=== PATIENT | male | born 1940 | race Caucasian/White ===

== ENCOUNTER 2016-07-01 03:18 | Inpatient (IN) | payer MEDICARE, OTHER ==
--- NOTE | 2016-07-01 03:33 | ER Document Report ---
ED Respiratory Problem - General Stated Complaint: DIFFICULTY BREATHING Time seen by provider: 03:30 Notes: Patient is a 75-year-old male that comes emergency department with chief complaint of shortness of breath, shortness of breath awoke him from his sleep tonight he states, he states he has had some cough with some sputum production but denies fever. EMS reports that with exertion patient becomes hypoxic in the 80s. Patient denies any chest pain, abdominal pain, nausea or vomiting. Past medical history of CAD with 4 stents, on Coumadin, also has a history of "bone cancer" and is on oral chemotherapy with Dr. Toro. Patient is a former smoker, denies COPD. Patient also has type II diabetes. Patient denies congestive heart failure. TRAVEL OUTSIDE OF THE [place] IN LAST 30 DAYS: No - Related Data Allergies/Adverse Reactions: Penicillins Allergy (Mild, Verified 07/01/16 06:40) Rash Past Medical History - General Information source: Patient - Social History Smoking Status: Former Smoker Frequency of alcohol use: None Drug Abuse: None Lives with: Alone Family History: Reviewed & Not Pertinent - Past Medical History Cardiac Medical History: Reports: Hx Congestive Heart Failure, Hx Coronary Artery Disease, Hx Heart Attack - x 4 (1993 x2, 1999 x 2), Hx Hypertension - ON MEDS Denies: Hx Hypercholesterolemia Pulmonary Medical History: Reports: Hx Pneumonia - Years ago Denies: Hx Asthma, Hx Bronchitis, Hx COPD Neurological Medical History: Denies: Hx Cerebrovascular Accident, Hx Seizures Endocrine Medical History: Reports: Hx Diabetes Mellitus Type 1, Hx Hyperthyroidism GI Medical History: Denies: Hx Hepatitis, Hx Hiatal Hernia, Hx Ulcer Musculoskeltal Medical History: Denies Hx Arthritis Infectious Medical History: Denies: Hx Hepatitis Past Surgical History: Reports: Hx Thyroid Surgery. Denies: Hx Open Heart Surgery - ANGIOPLASTY 1993,1999, Hx Pacemaker - Immunizations Hx Diphtheria, Pertussis, Tetanus Vaccination: Yes Hx Pneumococcal Vaccination: 06/04/11 Review of Systems - Review of Systems Constitutional: No symptoms reported EENT: No symptoms reported Cardiovascular: See HPI Respiratory: See HPI Gastrointestinal: No symptoms reported Genitourinary: No symptoms reported Male Genitourinary: No symptoms reported Musculoskeletal: No symptoms reported Skin: No symptoms reported Hematologic/Lymphatic: No symptoms reported Neurological/Psychological: No symptoms reported Physical Exam - Vital signs Vitals: Temp Resp Pulse Ox 98.5 F 22 H 97 07/01/16 03:20 07/01/16 03:20 07/01/16 03:20 Interpretation: Normal - General General appearance: Alert, Anxious In distress: Mild - HEENT Head: Normocephalic, Atraumatic Eyes: Normal Pupils: PERRL - Respiratory Respiratory status: Tachypnea. No: Labored Chest status: Nontender Breath sounds: Normal. No: Nonproductive cough, Rales, Rhonchi, Stridor, Wheezing Chest palpation: Normal - Cardiovascular Rhythm: Irregularly irregular, Tachycardia Heart sounds: Normal auscultation, S1 appreciated, S2 appreciated Murmur: No - Abdominal Inspection: Normal Distension: No distension Bowel sounds: Normal Tenderness: Nontender Organomegaly: No organomegaly - Back Back: Normal, Nontender - Extremities General upper extremity: Normal inspection, Nontender, Normal color, Normal ROM , Normal temperature General lower extremity: Normal inspection, Nontender, Normal color, Normal ROM , Normal temperature, Normal weight bearing. No: Javan's sign - Neurological Neuro grossly intact: Yes Cognition: Normal Orientation: AAOx4 Ensign Coma Scale Eye Opening: Spontaneous Ashley Coma Scale Verbal: Oriented Ashley Coma Scale Motor: Obeys Commands Ensign Coma Scale Total: 15 Speech: Normal Motor strength normal: LUE, RUE, LLE, RLE Sensory: Normal - Psychological Associated symptoms: Normal affect, Normal mood - Skin Skin Temperature: Warm Skin Moisture: Dry Skin Color: Normal Course - Re-evaluation Re-evalutation: EKG shows atrial fibrillation with tachycardia, no RVR, his PVCs. Patient's previous EKG also shows atrial fibrillation, patient stated he wasn't sure if he had atrial fibrillation on initial evaluation. Patient was initially given a bolus 500 mL of fluids. Review of imaging shows patient has history of prostate cancer with bony metastasis. Lungs clear, patient has some lower extremity edema which he states he always has but he denies history of CHF. Patient is not coughing, there is not an obvious etiology of his symptoms at this time, workup pending. Discussed with Dr. Perdomo per APC guidelines. Patient noted to be in A. fib with RVR and very short of breath, I evaluated him immediately, patient states that he had moved to urinate and immediately became short of breath, patient kept on oxygen, patient did resolve back to not having tachypnea and RVR dissipated. Patient had already received a DuoNeb by EMS, lungs questionably slightly decreased but not with any wheezing, rales, rhonchi. Patient again denies history of COPD. Venous blood gas CO2 is low, probably from hyperventilating, because of repeated episodes of respiratory distress, patient placed on BiPAP, giving Lasix and placing on nitroglycerin for suspected CHF exacerbation. Chest x-ray shows questionable CHF, BNP is somewhat elevated with no comparisons. Patient doing much better on BiPAP on reevaluation, CTA shows effusions but no other obvious etiology. Possibly a combination of COPD, CHF, pleural effusion. 07/01/16 07:40 Discussed with hospitalist, Dr. Ashley, patient will be admitted to the hospital. - Vital Signs Vital signs: Temp Pulse Resp BP Pulse Ox 98.5 F 23 H 157/104 H 98 07/01/16 03:20 07/01/16 07:01 07/01/16 07:01 07/01/16 07:01 - Laboratory Result Diagrams: 07/01/16 03:35 07/01/16 03:35 Laboratory results interpreted by me: 07/01/16 07/01/16 07/01/16 03:35 03:35 03:35 WBC 11.2 H Hgb 12.2 L Hct 37.8 L MCH 26.9 L RDW 15.6 H Seg Neutrophils % 79.0 H Absolute Neutrophils 8.8 H PT VBG pCO2 VBG HCO3 Carbon Dioxide 21 L Glucose 197 H NT-Pro-B Natriuret Pep 3640 H Total Protein 6.2 L Albumin 3.1 L 07/01/16 07/01/16 03:35 03:58 WBC Hgb Hct MCH RDW Seg Neutrophils % Absolute Neutrophils PT 21.7 H VBG pCO2 30.1 L VBG HCO3 16.2 L Carbon Dioxide Glucose NT-Pro-B Natriuret Pep Total Protein Albumin Discharge - Discharge Clinical Impression: Shortness of breath, Pleural effusion, Subtherapeutic anticoagulation, Hypoxia Condition: Stable Disposition: ADMITTED INPATIENT Admitting Provider: Hospitalist Unit Admitted: IMCU Referrals: CARLEY JOHNSON MD [Primary Care Provider] - Follow up as needed
[2016-07-01 03:46] LABS: ABSOLUTE BASOPHILS # (AUTO) 0.1 10^3/uL (0.0-0.2); ABSOLUTE EOSINOPHILS # (AUTO) 0.2 10^3/uL (0.0-0.6); ABSOLUTE LYMPHOCYTES (AUTO) 1.5 10^3/uL (0.5-4.7); ABSOLUTE MONOCYTES (AUTO) 0.5 10^3/uL (0.1-1.4); ABSOLUTE NEUT (AUTO) 8.8 10^3/uL (1.7-8.2); BASOPHILS % (AUTO) 0.9 % (0-2); EOSINOPHILS % (AUTO) 2.1 % (0-6); HEMATOCRIT 37.8 % (37.9-51.0); HEMOGLOBIN 12.2 g/dL (13.5-17.0); HGB HCT DIFFERENCE -1.2; LYMPHOCYTES % (AUTO) 13.7 % (13-45); MEAN CORPUSCULAR HEMOGLOBIN 26.9 pg (27.0-33.4); MEAN CORPUSCULAR HGB CONC 32.2 g/dL (32.0-36.0); MEAN CORPUSCULAR VOLUME 84 fl (80-97); MONOCYTES % (AUTO) 4.3 % (3-13); RED BLOOD COUNT 4.53 10^6/uL (4.35-5.55); RED CELL DISTRIBUTION WIDTH 15.6 % (11.5-14.0); WHITE BLOOD COUNT 11.2 10^3/uL (4.0-10.5)
[2016-07-01 03:50] LABS: VENOUS BLOOD BASE EXCESS -8.2 mmol/L; VENOUS BLOOD HCO3 16.2 mmol/L (20-32); VENOUS BLOOD PCO2 30.1 mmHg (35-63); VENOUS BLOOD PH 7.35 (7.30-7.42)
[2016-07-01] MEDS ORDERED: NORMAL SALINE 1000 ML 500 ML IV ONE (04:07)
[2016-07-01 04:09] LABS: ALANINE AMINOTRANSFERASE 28 U/L (21-72); ALBUMIN 3.1 g/dL (3.5-5.0); ALKALINE PHOSPHATASE 64 U/L (38-126); ANION GAP 14 (5-19); ASPARTATE AMINO TRANSFERASE 19 U/L (17-59); BILIRUBIN,TOTAL 0.4 mg/dL (0.2-1.3); BLOOD UREA NITROGEN 17 mg/dL (7-20); CARBON DIOXIDE 21 mmol/L (22-30); CHLORIDE 106 mmol/L (98-107); CREATINE KINASE 124 U/L (55-170); CREATININE RESULT 1.04 mg/dL (0.52-1.25); GLUCOSE 197 mg/dL (75-110); POTASSIUM 3.7 mmol/L (3.6-5.0); SODIUM 141.4 mmol/L (137-145); TOTAL PROTEIN 6.2 g/dL (6.3-8.2)
[2016-07-01 04:10] LABS: PROTHROMBIN TIME 21.7 SEC (11.4-15.4)
[2016-07-01 04:49] LABS: CREATINE KINASE MB 2.47 ng/mL (<4.55)
[2016-07-01 04:51] LABS: TROPONIN I 0.034 ng/mL
[2016-07-01] MEDS ORDERED: FUROSEMIDE INJ/PF 40 MG/4 ML SDV IV ONE (04:57)
[2016-07-01] MEDS ORDERED: NITROGLYCERIN 2% OINTMENT 1 GM PACKET TP ONE (05:46)
[2016-07-01] MEDS ORDERED: DEXTROSE 40% GEL 15 GM TUBE PO PRN ×2 (08:06)
[2016-07-01] MEDS ORDERED: GLUCAGON,HUMAN RECOMB 1 MG INJ IM PRN (08:06)
[2016-07-01] MEDS ORDERED: DEXTROSE 50%-WATER 25 GM/50 ML DISP.SYRIN IV PRN ×2 (08:06)
[2016-07-01] MEDS ORDERED: ACETAMINOPHEN 325 MG TABLET PO PRN (08:06)
[2016-07-01] MEDS ORDERED: MAGNESIUM HYDROXIDE SUSP 30 ML UDCUP PO PRN (08:11)
[2016-07-01] MEDS ORDERED: ONDANSETRON HCL INJ/PF 4 MG/2 ML SDV IV PRN (08:11)
[2016-07-01] MEDS ORDERED: INSULIN REG, HUMAN 100 UNIT/ML 3 ML VIAL (PYX) SUBCUT PRN (08:11)
[2016-07-01] MEDS ORDERED: HYDRALAZINE HCL INJ/PF 20 MG/1 ML SDV IV PRN (08:14)
[2016-07-01 09:11] LABS: CREATINE KINASE MB 2.86 ng/mL (<4.55); TROPONIN I 0.078 ng/mL
[2016-07-01] MEDS ORDERED: FUROSEMIDE INJ/PF 40 MG/4 ML SDV IV SCH (10:00)
[2016-07-01] MEDS ORDERED: WARFARIN SODIUM 5 MG TABLET PO SCH ×2 (10:45→22:00)
--- NOTE | 2016-07-01 11:19 | PDOC CONSULTATION ---
Consultation Consult Date: 07/01/16 Attending physician:: MANJIT AVINA Consult reason:: Patient well known to our oncology clinic with stage IV prostate cancer, here with dyspnea and exertion, shortness of breath, concern of heart failure History of Present Illness Admission Date/PCP: 07/01/16 08:06 CARLEY JOHNSON, Patient complains of: Distant exertion, shortness of breath, pleural effusions, heart failure, prostate cancer History of Present Illness: MAGALIE ABAD is a 75 year old male well known to our oncology clinic with stage IV prostate cancer, he is currently on the oral chemotherapeutic medication Xtandi, tolerating that well. He's been on that for about a month. Prior to that he was on the oral medication Zytiga, he's had progression of disease in terms of rising PSA. Therefore the change in medication was given. However imaging indicated overall stable bony metastasis. He does not have organ involvement thus far. He comes in with a one-week history of increasing lower extremity bilateral edema, and over the last 44 hours increasing shortness of breath, ultimately was brought here and extremitas. Upon presentation chest x-ray indicated overload, he had CT of the chest looking for causes, I was negative for PE but indicated bilateral pleural effusion. He was admitted for acute overload presumably secondary to heart failure. He has received Lasix and has had good output. He is currently on 2L nasal cannula, prior to that he was on higher flow oxygen. Past Medical History Cardiac Medical History: Reports: Congestive Heart Failure, Coronary Artery Disease, Myocardial Infarction - x 4 (1993 x2, 1999 x 2), Hypertension - ON MEDS Denies: Hyperlipidema Pulmonary Medical History: Reports: Pneumonia - Years ago Denies: Asthma, Bronchitis, Chronic Obstructive Pulmonary Disease (COPD) Neurological Medical History: Denies: Seizures Endocrine Medical History: Reports: Diabetes Mellitus Type 1, Hyperthyroidism Malignancy Medical History: Reports: Bone Cancer, Other - Prostate cancer with bone metastasis GI Medical History: Denies: Hepatitis, Hiatal Hernia Musculoskeltal Medical History: Denies: Arthritis Hematology: Denies: Anemia, Sickle Cell Disease Past Surgical History Past Surgical History: Denies: Pacemaker Social History Lives with: Alone Smoking Status: Former Smoker Hx Recreational Drug Use: No Hx Prescription Drug Abuse: No - Advance Directive Resuscitation Status: Full Code Family History Family History: Reviewed & Not Pertinent Parental Family History Reviewed: Yes Children Family History Reviewed: Yes Sibling(s) Family History Reviewed.: Yes Medication/Allergy Home Medications: Aspirin [Aspirin EC] 81 mg PO DAILY 07/01/16 Calcium Carbonate/Vitamin D3 [Calcium 500-Vit D3 200 Tablet] 1 each PO DAILY Enzalutamide [Xtandi] 160 mg PO DAILY 07/01/16 Ergocalciferol (Vitamin D2) [Vitamin D2] 50,000 units PO TU@1000 07/01/16 Fluticasone/Salmeterol [Advair 250-50 Diskus 14 Dose/Diskus] 1 puff IH DAILY Hydrochlorothiazide [Hydrodiuril 25 mg Tablet] 25 mg PO DAILY 07/01/16 Insulin Aspart [Novolog Flexpen] 20 units SQ TID 07/01/16 Insulin Glargine,Hum.rec.anlog [Lantus Solostar] 80 units SQ QHS 07/01/16 Levothyroxine Sodium [Synthroid 0.15 mg Tablet] 0.15 mg PO QAM 07/01/16 Metformin HCl [Metformin HCl ER] 1,000 mg PO BID 07/01/16 Metoprolol Tartrate [Lopressor 25 mg Tablet] 25 mg PO Q12 07/01/16 Nitroglycerin [Nitromist] 1 spray SL Q5MP PRN 07/01/16 Prednisone [Deltasone 5 mg Tablet] 5 mg PO BID 07/01/16 Rosuvastatin Calcium [Crestor 20 mg Tablet] 20 mg PO QHS 07/01/16 Tolterodine Tartrate [Detrol LA] 2 mg PO DAILY 07/01/16 Warfarin Sodium [Coumadin 4 mg Tablet] 4 mg PO .DAILYEXCEPT MOWE 07/01/16 Warfarin Sodium [Coumadin 5 mg Tablet] 5 mg PO .DAILYEXCEPT MOWE 07/01/16 Warfarin Sodium [Coumadin] 10 mg PO MOWE@1000 07/01/16 Allergies/Adverse Reactions: Penicillins Allergy (Mild, Verified 07/01/16 06:40) Rash Review of Systems Constitutional: PRESENT: weakness Cardiovascular: PRESENT: dyspnea on exertion, edema, orthropnea Gastrointestinal: ABSENT: abdominal pain, constipation, diarrhea, hematemesis, hematochezia, nausea, vomiting Integumentary: ABSENT: rash, wounds Neurological: ABSENT: abnormal gait, abnormal speech, confusion, dizziness, focal weakness, syncope Psychiatric: ABSENT: anxiety, depression, homidical ideation, suicidal ideation Hematologic/Lymphatic: ABSENT: easy bleeding, easy bruising Physical Exam Vital Signs: Temp Pulse Resp BP Pulse Ox 97.9 F 82 20 139/77 H 98 07/01/16 10:27 07/01/16 10:27 07/01/16 10:27 07/01/16 10:27 07/01/16 10:27 Intake & Output 06/30/16 07/01/16 07/02/16 06:59 06:59 06:59 Output Total 600 Balance -600 Weight 103.7 kg General appearance: PRESENT: mild distress Head exam: PRESENT: atraumatic Mouth exam: PRESENT: moist Neck exam: ABSENT: carotid bruit, JVD, lymphadenopathy, thyromegaly Respiratory exam: PRESENT: crackles Cardiovascular exam: PRESENT: RRR. ABSENT: diastolic murmur, rubs, systolic murmur GI/Abdominal exam: PRESENT: normal bowel sounds, soft. ABSENT: distended, guarding, mass, organolmegaly, rebound, tenderness Rectal exam: PRESENT: deferred Extremities exam: PRESENT: pedal edema, +2 edema Results Laboratory Results: 07/01/16 07/01/16 08:31 08:31 Creatine Kinase 125 CK-MB (CK-2) 2.86 Troponin I 0.078 Impressions: Chest X-Ray 07/01/16 03:30 IMPRESSION: Constellation of findings suggests CHF pattern. Chest/Abdomen CTA 07/01/16 04:58 IMPRESSION: 1. NO CENTRAL OR SEGMENTAL PULMONARY EMBOLI. 2. KNOWN OSSEOUS METASTASES STABLE IN AND DISTRIBUTION AND APPEARANCE. Status: Image reviewed by me Assessment & Plan - Diagnosis (1) Pleural effusion Is this a current diagnosis for this admission?: YesPlan: Most likely secondary to heart failure, unlikely secondary to prostate cancer, also should not be related to medication. This drug does not cause pleural effusions either. It shouldn't cause lower extremity edema. This should be unrelated. (2) Prostate cancer metastatic to bone Is this a current diagnosis for this admission?: YesPlan: Known history of prostate cancer with bone metastasis, recently stable metastasis but rising PSA, currently on Xtandi, have asked nursing to write order to continue home medication while hospitalized. - Time Time Spent: Greater than 70 Minutes Critical Time spent with patient: 35 or more minutes - Inpatient Certification Based on my medical assessment, after consideration of the patient's comorbidities, presenting symptoms, or acuity I expect that the services needed warrant INPATIENT care.: Yes I certify that my determination is in accordance with my understanding of Medicare's requirements for reasonable and necessary INPATIENT services [42 CFR 412.3e].: Yes Medical Necessity: Need For Continuous Telemetry Monitoring, Need for Nebulizer Therapy and Monitoring of Response, Other - Need for IV Lasix and close monitoring of intake and output.
[2016-07-01] MEDS: LISINOPRIL 10 MG TABLET PO SCH (12:58)
[2016-07-01] MEDS: FAMOTIDINE 20 MG TABLET PO SCH ×2 (12:58→22:52)
[2016-07-01] MEDS: POTASSIUM CHLORIDE 10 MEQ TABLET.SA PO SCH ×2 (12:59→22:51)
[2016-07-01] MEDS: METOPROLOL SUCCINATE 50 MG TAB.SR.24H PO SCH ×2 (12:59→22:52)
[2016-07-01] MEDS: NITROGLYCERIN 5 MG (0.2 MG/HR) PATCH.TD24 TD SCH (13:00)
--- NOTE | 2016-07-01 14:08 | PDOC H&P ---
History of Present Illness Admission Date/PCP: 07/01/16 08:06 CARLEY JOHNSON, Patient complains of: Sudden onset of shortness of breath History of Present Illness: Patient of Dr. Johnson Presents to the emergency department from home with sudden onset of shortness of breath occurred around 0100 this morning. He states he was in his usual state of health for the several days prior and went to bed feeling well but awakened with a sense of breathlessness. He notes his lower extremities and been swelling more over the course of the last week to 10 days. He complains of orthopnea for the last 1-2 nights he's been unable to lie flat due to increased breathlessness. He denies chest pain or palpitations even though he has a history of chronic atrial fibrillation. He denies fevers, chills, cough with phlegm, headache, dizziness, melena, hematochezia, dysuria, syncope or presyncope. Evaluation in the emergency department shows them to be quite hypertensive systolic pressures greater than 200 and diastolic pressures greater than 100, clinical and physical exam findings of fluid overload including pulmonary edema and pleural effusions with hypoxia on exertion but not at rest. We were asked to admit for further evaluation and management. The patient has a history of stage IV prostate cancer status post TURP and is followed by the oncology clinic currently on hormone therapy. Review of the old record indicates a history of ischemic cardiomyopathy from prior atherosclerotic coronary vascular disease and LA requiring stenting, unfortunately I do not see record of echocardiogram to document his last known ejection fraction. Past Medical History Cardiac Medical History: Reports: Congestive Heart Failure, Coronary Artery Disease, Myocardial Infarction - x 4 (1993 x2, 1999 x 2), Hypertension - ON MEDS Denies: Hyperlipidema Pulmonary Medical History: Reports: Pneumonia - Years ago Denies: Asthma, Bronchitis, Chronic Obstructive Pulmonary Disease (COPD) Neurological Medical History: Denies: Seizures Endocrine Medical History: Reports: Diabetes Mellitus Type 1, Hyperthyroidism Malignancy Medical History: Reports: Bone Cancer, Other - Prostate cancer with bone metastasis GI Medical History: Denies: Hepatitis, Hiatal Hernia Musculoskeltal Medical History: Denies: Arthritis Psychiatric Medical History: Reports: Depression Hematology: Denies: Anemia, Sickle Cell Disease Past Surgical History Past Surgical History: Denies: Pacemaker Social History Information Source: Patient Lives with: Alone Smoking Status: Former Smoker Cigarettes Packs Per Day: 3 Number of Years Smokin Frequency of Alcohol Use: None Hx Recreational Drug Use: No Hx Prescription Drug Abuse: No - Advance Directive Resuscitation Status: Full Code Family History Family History: CAD, DM Parental Family History Reviewed: Yes Children Family History Reviewed: Yes Sibling(s) Family History Reviewed.: Yes Medication/Allergy Home Medications: Aspirin [Aspirin EC] 81 mg PO DAILY 07/01/16 Calcium Carbonate/Vitamin D3 [Calcium 500-Vit D3 200 Tablet] 1 each PO DAILY Enzalutamide [Xtandi] 160 mg PO DAILY 07/01/16 Ergocalciferol (Vitamin D2) [Vitamin D2] 50,000 units PO TU@1000 07/01/16 Fluticasone/Salmeterol [Advair 250-50 Diskus 14 Dose/Diskus] 1 puff IH DAILY Hydrochlorothiazide [Hydrodiuril 25 mg Tablet] 25 mg PO DAILY 07/01/16 Insulin Aspart [Novolog Flexpen] 20 units SQ TID 07/01/16 Insulin Glargine,Hum.rec.anlog [Lantus Solostar] 80 units SQ QHS 07/01/16 Levothyroxine Sodium [Synthroid 0.15 mg Tablet] 0.15 mg PO QAM 07/01/16 Metformin HCl [Metformin HCl ER] 1,000 mg PO BID 07/01/16 Metoprolol Tartrate [Lopressor 25 mg Tablet] 25 mg PO Q12 07/01/16 Nitroglycerin [Nitromist] 1 spray SL Q5MP PRN 07/01/16 Prednisone [Deltasone 5 mg Tablet] 5 mg PO BID 07/01/16 Rosuvastatin Calcium [Crestor 20 mg Tablet] 20 mg PO QHS 07/01/16 Tolterodine Tartrate [Detrol LA] 2 mg PO DAILY 07/01/16 Warfarin Sodium [Coumadin 4 mg Tablet] 4 mg PO .DAILYEXCEPT MOWE 07/01/16 Warfarin Sodium [Coumadin 5 mg Tablet] 5 mg PO .DAILYEXCEPT MOWE 07/01/16 Warfarin Sodium [Coumadin] 10 mg PO MOWE@1000 07/01/16 Allergies/Adverse Reactions: Penicillins Allergy (Mild, Verified 07/01/16 06:40) Rash Review of Systems Constitutional: ABSENT: chills, fever(s), headache(s), weight gain, weight loss Eyes: ABSENT: visual disturbances Ears: ABSENT: hearing changes Cardiovascular: PRESENT: dyspnea on exertion, edema, orthropnea. ABSENT: chest pain, palpitations Respiratory: ABSENT: cough, hemoptysis Gastrointestinal: ABSENT: abdominal pain, constipation, diarrhea, hematemesis, hematochezia, nausea, vomiting Genitourinary: ABSENT: dysuria, hematuria Musculoskeletal: ABSENT: joint swelling Integumentary: ABSENT: rash, wounds Neurological: ABSENT: abnormal gait, abnormal speech, confusion, dizziness, focal weakness, syncope Psychiatric: ABSENT: anxiety, depression Endocrine: ABSENT: cold intolerance, heat intolerance, polydipsia, polyuria Hematologic/Lymphatic: ABSENT: easy bleeding, easy bruising Physical Exam Vital Signs: Temp Pulse Resp BP Pulse Ox 97.7 F 73 18 143/70 H 96 07/01/16 12:12 07/01/16 12:12 07/01/16 12:12 07/01/16 12:12 07/01/16 12:12 Intake & Output 06/30/16 07/01/16 07/02/16 06:59 06:59 06:59 Output Total 600 Balance -600 Weight 103.7 kg PHYSICAL EXAM GENERAL: NAD; well developed, well nourished; mild obese; alert and oriented to person, place, time, situation HEENT: normocephalic, atraumatic; EOMI, PERRLA, no conjunctival injection, no scleral icterus; oral mucosa moist,; neck supple, no LAD, normal ROM RESPIRATORY: no accessory muscle use, no increased WOB, good air entry bilaterally; no wheezes, or rhonchi; positive for rales and inspiratory crackles bilateral CARDIO: Possibly 2-3 cm JVD; RRR; no systolic murmur; no tachycardia VASCULAR: no carotid bruit; no abdominal bruit; no pallor; 2+ radial, DP pulse ; normal capillary refill GI: soft; nondistended; normal bowel sounds; no hepato spleno megaly; no rebound, rigidity, guarding : normal external genitalia; rectal deferred NEURO: normal patella reflexes; normal sensation; normal motor function; no gait abnls; no dysarthria; no nystagmus; tongue protrudes midline; normal finger to nose; MSK: 5/5 strength; normal ROM hips; ambulatory without assistance; no tenderness EXTREMITIES: no calf tender; no palpable cords in calf; no clubbing, cyanosis , 1+ pedal edema from the feet tracking up to thighs and dependent tissues of his back PSYCH: normal affect, normal mood SKIN: warm; moist; no petechiae; no telengectasias; no jaundice; no rash Results Laboratory Results: 07/01/16 07/01/16 08:31 08:31 Creatine Kinase 125 CK-MB (CK-2) 2.86 Troponin I 0.078 Impressions: Chest X-Ray 07/01/16 03:30 IMPRESSION: Constellation of findings suggests CHF pattern. Chest/Abdomen CTA 07/01/16 04:58 IMPRESSION: 1. NO CENTRAL OR SEGMENTAL PULMONARY EMBOLI. 2. KNOWN OSSEOUS METASTASES STABLE IN AND DISTRIBUTION AND APPEARANCE. Assessment & Plan - Diagnosis (1) Acute on chronic systolic heart failure Is this a current diagnosis for this admission?: YesPlan: Admit to monitored bed for continued diuresis. Trend his renal function and BNP. Continue beta jade, and topical nitroglycerin and ILEANA inhibitor. Strict I's and O's. Daily weights. CHF teaching. Check echocardiogram to document LV function. (2) Accelerated hypertension Is this a current diagnosis for this admission?: YesPlan: I suspect the hypertension accounts for flash pulmonary edema and the sudden onset of his symptoms overnight. Titrate his regimen to goal blood pressure. (3) Hypoxia Is this a current diagnosis for this admission?: YesPlan: Should improve with diuresis, does not wear supplemental O2 at home or CPAP. (4) Pleural effusion Is this a current diagnosis for this admission?: YesPlan: 2 small for invasive intervention like thoracentesis, will attempt to clear with diuresis. (5) Prostate cancer metastatic to bone Is this a current diagnosis for this admission?: YesPlan: Oncology consulted. Continue home meds (6) Subtherapeutic anticoagulation Is this a current diagnosis for this admission?: YesPlan: Coumadin per protocol. (7) Chronic atrial fibrillation Is this a current diagnosis for this admission?: YesPlan: Rate controlled. Continue beta jade. (8) Anticoagulated on Coumadin Is this a current diagnosis for this admission?: YesPlan: As above - Time Time Spent: Greater than 70 Minutes Medications reviewed and adjusted accordingly: Yes Anticipated discharge: Home Within: within 72 hours - Inpatient Certification Based on my medical assessment, after consideration of the patient's comorbidities, presenting symptoms, or acuity I expect that the services needed warrant INPATIENT care.: Yes I certify that my determination is in accordance with my understanding of Medicare's requirements for reasonable and necessary INPATIENT services [42 CFR 412.3e].: Yes Medical Necessity: Failure to Improve With Outpatient Therapy, Need For Continuous Telemetry Monitoring
--- NOTE | 2016-07-01 15:17 | EKG REPORT ---
SEVERITY:- ABNORMAL ECG - ATRIAL FIBRILLATION MULTIFORM VENTRICULAR PREMATURE COMPLEXES CONSIDER ANTERIOR INFARCT BORDERLINE T ABNORMALITIES, ANTERIOR LEADS PROLONGED QT INTERVAL : Confirmed by: Lamar Castro MD 01-Jul-2016 15:16:40
[2016-07-01 15:55] LABS: CREATINE KINASE MB 2.38 ng/mL (<4.55); TROPONIN I 0.058 ng/mL
[2016-07-01] MEDS: (Enzalutamide [Xtandi] 40 MG) PO SCH (17:10)
[2016-07-01] MEDS: FUROSEMIDE INJ/PF 40 MG/4 ML SDV IV SCH (17:10)
[2016-07-01] MEDS: PREDNISONE 5 MG TABLET PO SCH (17:10)
[2016-07-01 21:51] LABS: CREATINE KINASE MB 2.14 ng/mL (<4.55); TROPONIN I 0.057 ng/mL
[2016-07-01] MEDS ORDERED: (PENDING PHARMACY ID) (Rosuvastatin Calcium [Crestor 20 Mg Tablet] 20 MG) PO SCH (22:00)
[2016-07-01] MEDS: INSULIN GLARGINE,HUM.REC.ANLOG 300 UNIT/3 ML INSULN.PEN SUBCUT SCH (22:52)
[2016-07-01] MEDS: ATORVASTATIN CALCIUM 40 MG TABLET PO SCH (22:52)
[2016-07-01] MEDS: TOLTERODINE TARTRATE 1 MG TABLET PO SCH (22:52)
[2016-07-02 05:22] LABS: ANION GAP 11 (5-19); BLOOD UREA NITROGEN 15 mg/dL (7-20); CALCIUM 9.2 mg/dL (8.4-10.2); CARBON DIOXIDE 24 mmol/L (22-30); CHLORIDE 109 mmol/L (98-107); CREATININE RESULT 0.93 mg/dL (0.52-1.25); GLUCOSE 109 mg/dL (75-110); MAGNESIUM 1.8 mg/dL (1.6-2.3); POTASSIUM 4.3 mmol/L (3.6-5.0); SODIUM 143.5 mmol/L (137-145)
[2016-07-02 05:24] LABS: PROTHROMBIN TIME 20.3 SEC (11.4-15.4)
[2016-07-02] MEDS: FUROSEMIDE INJ/PF 40 MG/4 ML SDV IV SCH ×2 (05:42→17:12)
[2016-07-02] MEDS: LEVOTHYROXINE SODIUM 0.15 MG TABLET PO SCH (08:03)
--- NOTE | 2016-07-02 09:58 | PDOC PROGRESS REPORT ---
Subjective Progress Note for:: 07/02/16 Subjective:: No acute events overnight, patient is doing better today Physical Exam Vital Signs: Temp Pulse Resp BP Pulse Ox 98.1 F 69 20 112/77 98 07/02/16 08:18 07/02/16 08:18 07/02/16 08:18 07/02/16 08:18 07/02/16 08:18 Intake & Output 07/01/16 07/02/16 07/03/16 06:59 06:59 06:59 Intake Total 1430 Output Total 1800 Balance -370 Weight 103.7 kg General appearance: PRESENT: no acute distress, well-developed, well-nourished Head exam: PRESENT: atraumatic, normocephalic Eye exam: PRESENT: conjunctiva pink, EOMI, PERRLA. ABSENT: scleral icterus Ear exam: PRESENT: normal external ear exam Mouth exam: PRESENT: moist, tongue midline Neck exam: ABSENT: carotid bruit, JVD, lymphadenopathy, thyromegaly Respiratory exam: PRESENT: clear to auscultation carmelo. ABSENT: rales, rhonchi, wheezes Cardiovascular exam: PRESENT: RRR. ABSENT: diastolic murmur, rubs, systolic murmur Pulses: PRESENT: normal dorsalis pedis pul Vascular exam: PRESENT: normal capillary refill GI/Abdominal exam: PRESENT: normal bowel sounds, soft. ABSENT: distended, guarding, mass, organolmegaly, rebound, tenderness Rectal exam: PRESENT: deferred Extremities exam: PRESENT: full ROM. ABSENT: calf tenderness, clubbing, pedal edema Neurological exam: PRESENT: alert, awake, oriented to person, oriented to place , oriented to time, oriented to situation, CN II-XII grossly intact. ABSENT: motor sensory deficit Psychiatric exam: PRESENT: appropriate affect, normal mood. ABSENT: homicidal ideation, suicidal ideation Skin exam: PRESENT: dry, intact, warm. ABSENT: cyanosis, rash Results Laboratory Results: 07/02/16 04:14 07/02/16 04:14 Sodium 143.5 Potassium 4.3 Chloride 109 H Carbon Dioxide 24 Anion Gap 11 BUN 15 Creatinine 0.93 Est GFR ( Amer) > 60 Est GFR (Non-Af Amer) > 60 Glucose 109 Calcium 9.2 Magnesium 1.8 07/01/16 07/01/16 07/01/16 08:31 08:31 15:06 Creatine Kinase 125 121 CK-MB (CK-2) 2.86 Troponin I 0.078 NT-Pro-B Natriuret Pep 07/01/16 07/01/16 07/01/16 15:06 21:17 21:17 Creatine Kinase 127 CK-MB (CK-2) 2.38 2.14 Troponin I 0.058 0.057 NT-Pro-B Natriuret Pep 07/02/16 04:14 Creatine Kinase CK-MB (CK-2) Troponin I NT-Pro-B Natriuret Pep 3990 H Impressions: Chest X-Ray 07/01/16 03:30 IMPRESSION: Constellation of findings suggests CHF pattern. Chest/Abdomen CTA 07/01/16 04:58 IMPRESSION: 1. NO CENTRAL OR SEGMENTAL PULMONARY EMBOLI. 2. KNOWN OSSEOUS METASTASES STABLE IN AND DISTRIBUTION AND APPEARANCE. Assessment & Plan - Diagnosis (1) Pleural effusion Is this a current diagnosis for this admission?: YesPlan: Improved, related to heart failure, continue per hospitalist team (2) Prostate cancer metastatic to bone Is this a current diagnosis for this admission?: YesPlan: Continue on home medication, patient seems to be doing well. - Time Time Spent with patient: 15-24 minutes Critical Time spent with patient: 15-24 minutes - Inpatient Certification Based on my medical assessment, after consideration of the patient's comorbidities, presenting symptoms, or acuity I expect that the services needed warrant INPATIENT care.: Yes I certify that my determination is in accordance with my understanding of Medicare's requirements for reasonable and necessary INPATIENT services [42 CFR 412.3e].: Yes Medical Necessity: Failure to Improve With Outpatient Therapy, Risk of Complication if Not Cared For in Hospital
[2016-07-02] MEDS: (Enzalutamide [Xtandi] 40 MG) PO SCH (10:00)
[2016-07-02] MEDS ORDERED: (PENDING PHARMACY ID) (Tolterodine Tartrate [Detrol La] 2 MG) PO SCH (10:00)
[2016-07-02] MEDS: ASPIRIN 81 MG TABLET, ENT COATED PO SCH (10:05)
[2016-07-02] MEDS: METOPROLOL SUCCINATE 50 MG TAB.SR.24H PO SCH ×2 (10:05→21:27)
[2016-07-02] MEDS: POTASSIUM CHLORIDE 10 MEQ TABLET.SA PO SCH ×2 (10:05→21:27)
[2016-07-02] MEDS: PREDNISONE 5 MG TABLET PO SCH ×2 (10:06→17:12)
[2016-07-02] MEDS: LISINOPRIL 10 MG TABLET PO SCH (10:06)
[2016-07-02] MEDS: TOLTERODINE TARTRATE 1 MG TABLET PO SCH ×2 (10:06→21:26)
[2016-07-02] MEDS: FAMOTIDINE 20 MG TABLET PO SCH ×2 (10:06→21:27)
[2016-07-02] MEDS: NITROGLYCERIN 5 MG (0.2 MG/HR) PATCH.TD24 TD SCH (10:07)
[2016-07-02] MEDS: FLUTICASONE/SALMETEROL DISKUS 250-50 MCG/DOSE IH SCH (10:09)
--- NOTE | 2016-07-02 10:54 | PDOC PROGRESS REPORT ---
Subjective Progress Note for:: 07/02/16 Subjective:: Patient of Dr. Hurst Presents to the emergency department from home with sudden onset of shortness of breath occurred around 0100 this morning. He states he was in his usual state of health for the several days prior and went to bed feeling well but awakened with a sense of breathlessness. He notes his lower extremities and been swelling more over the course of the last week to 10 days. He complains of orthopnea for the last 1-2 nights he's been unable to lie flat due to increased breathlessness. He denies chest pain or palpitations even though he has a history of chronic atrial fibrillation. He denies fevers, chills, cough with phlegm, headache, dizziness, melena, hematochezia, dysuria, syncope or presyncope. Evaluation in the emergency department shows them to be quite hypertensive systolic pressures greater than 200 and diastolic pressures greater than 100, clinical and physical exam findings of fluid overload including pulmonary edema and pleural effusions with hypoxia on exertion but not at rest. We were asked to admit for further evaluation and management. The patient has a history of stage IV prostate cancer status post TURP and is followed by the oncology clinic currently on hormone therapy. Review of the old record indicates a history of ischemic cardiomyopathy from prior atherosclerotic coronary vascular disease and MO requiring stenting, unfortunately I do not see record of echocardiogram to document his last known ejection fraction. He was admitted and started on diuretics with good urine output and marked improvement in his symptoms. Today he denies chest pain palpitations states his orthopnea and lower extremities swelling have improved. ROS: per HPI plus a total of 10 systems reviewed, pertinent positives and negatives noted above, remaining systems negative. Physical Exam Vital Signs: Temp Pulse Resp BP Pulse Ox 98.1 F 69 20 112/77 98 07/02/16 08:18 07/02/16 08:18 07/02/16 08:18 07/02/16 08:18 07/02/16 08:18 Intake & Output 07/01/16 07/02/16 07/03/16 06:59 06:59 06:59 Intake Total 1430 Output Total 1800 Balance -370 Weight 103.7 kg GENERAL: NAD; well developed, well nourished; mild obese; alert and oriented to person, place, time, situation HEENT: normocephalic, atraumatic; EOMI, PERRLA, no conjunctival injection, no scleral icterus; oral mucosa moist,; neck supple, no LAD, normal ROM RESPIRATORY: no accessory muscle use, no increased WOB, good air entry bilaterally; no wheezes, or rhonchi; positive for rales and inspiratory crackles bilateral CARDIO: Improved JVD; irregularly irregular; no systolic murmur; no tachycardia VASCULAR: no carotid bruit; no abdominal bruit; no pallor; 2+ radial, DP pulse ; normal capillary refill GI: soft; nondistended; normal bowel sounds; no hepato spleno megaly; no rebound, rigidity, guarding : normal external genitalia; rectal deferred NEURO: normal patella reflexes; normal sensation; normal motor function; no gait abnls; no dysarthria; no nystagmus; MSK: 5/5 strength; normal ROM hips; ambulatory without assistance; no tenderness EXTREMITIES: no calf tender; no palpable cords in calf; no clubbing, cyanosis , 1+ pedal edema from the feet tracking up to thighs and dependent tissues of his back PSYCH: normal affect, normal mood SKIN: warm; moist; no petechiae; no telengectasias; no jaundice; no rash Results Laboratory Results: 07/02/16 04:14 07/02/16 04:14 Sodium 143.5 Potassium 4.3 Chloride 109 H Carbon Dioxide 24 Anion Gap 11 BUN 15 Creatinine 0.93 Est GFR ( Amer) > 60 Est GFR (Non-Af Amer) > 60 Glucose 109 Calcium 9.2 Magnesium 1.8 07/01/16 07/01/16 07/01/16 08:31 08:31 15:06 Creatine Kinase 125 121 CK-MB (CK-2) 2.86 Troponin I 0.078 NT-Pro-B Natriuret Pep 07/01/16 07/01/16 07/01/16 15:06 21:17 21:17 Creatine Kinase 127 CK-MB (CK-2) 2.38 2.14 Troponin I 0.058 0.057 NT-Pro-B Natriuret Pep 07/02/16 04:14 Creatine Kinase CK-MB (CK-2) Troponin I NT-Pro-B Natriuret Pep 3990 H Impressions: Chest X-Ray 07/01/16 03:30 IMPRESSION: Constellation of findings suggests CHF pattern. Chest/Abdomen CTA 07/01/16 04:58 IMPRESSION: 1. NO CENTRAL OR SEGMENTAL PULMONARY EMBOLI. 2. KNOWN OSSEOUS METASTASES STABLE IN AND DISTRIBUTION AND APPEARANCE. Assessment & Plan - Diagnosis (1) Acute on chronic systolic heart failure Is this a current diagnosis for this admission?: YesPlan: Admit to monitored bed for continued diuresis. Trend his renal function and BNP. Continue beta jade, and topical nitroglycerin and ILEANA inhibitor. Strict I's and O's. Daily weights. Fluid restriction to 1500 mL per day CHF teaching. Check echocardiogram to document LV function but not able to do so until one day. Overall improved, continue current regimen. (2) Accelerated hypertension Is this a current diagnosis for this admission?: YesPlan: I suspect the hypertension accounts for flash pulmonary edema and the sudden onset of his symptoms overnight. Markedly improved, Titrate his regimen to goal blood pressure. (3) Hypoxia Is this a current diagnosis for this admission?: YesPlan: improved with diuresis, does not wear supplemental O2 at home or CPAP. Continue attempts to wean and check room air sat in the morning. (4) Pleural effusion Is this a current diagnosis for this admission?: YesPlan: too small for invasive intervention like thoracentesis, will attempt to clear with diuresis. (5) Prostate cancer metastatic to bone Is this a current diagnosis for this admission?: YesPlan: Oncology consulted. Continue home meds (6) Subtherapeutic anticoagulation Is this a current diagnosis for this admission?: YesPlan: Continue Coumadin. The patient is very confused about the dose he should be taking making it difficult to choose. (7) Chronic atrial fibrillation Is this a current diagnosis for this admission?: YesPlan: Rate controlled. Continue beta jade. (8) Anticoagulated on Coumadin Is this a current diagnosis for this admission?: YesPlan: As above - Time Time Spent with patient: 25-34 minutes - Plan Summary Plan Summary: Continue current level of care anticipating possible discharge tomorrow. Dr. Hurst returns in the morning to resume care of this patient.
[2016-07-02 11:33] LABS: PROTHROMBIN TIME 20.2 SEC (11.4-15.4)
[2016-07-02] MEDS: ATORVASTATIN CALCIUM 40 MG TABLET PO SCH (21:26)
[2016-07-02] MEDS: INSULIN GLARGINE,HUM.REC.ANLOG 300 UNIT/3 ML INSULN.PEN SUBCUT SCH (21:27)
[2016-07-02] MEDS ORDERED: WARFARIN SODIUM 4 MG TABLET PO SCH (22:00)
[2016-07-03 05:14] LABS: ANION GAP 10 (5-19); BLOOD UREA NITROGEN 18 mg/dL (7-20); CARBON DIOXIDE 27 mmol/L (22-30); CHLORIDE 106 mmol/L (98-107); CREATININE RESULT 0.99 mg/dL (0.52-1.25); GLUCOSE 78 mg/dL (75-110); MAGNESIUM 1.8 mg/dL (1.6-2.3); POTASSIUM 4.2 mmol/L (3.6-5.0); SODIUM 142.7 mmol/L (137-145)
[2016-07-03] MEDS: FUROSEMIDE INJ/PF 40 MG/4 ML SDV IV SCH ×2 (06:06→17:13)
[2016-07-03] MEDS: LEVOTHYROXINE SODIUM 0.15 MG TABLET PO SCH (08:23)
--- NOTE | 2016-07-03 08:58 | PDOC PROGRESS REPORT ---
Subjective Progress Note for:: 07/03/16 Subjective:: The patient states to feel much better. He is up in a recliner this morning. His INR was a negative Physical Exam Vital Signs: Temp Pulse Resp BP Pulse Ox 98.1 F 67 20 115/55 L 93 07/03/16 07:54 07/03/16 07:54 07/03/16 07:54 07/03/16 07:54 07/03/16 07:54 Intake & Output 07/02/16 07/03/16 07/04/16 06:59 06:59 06:59 Intake Total 1430 1427 Output Total 1800 1400 Balance -370 27 Weight 103.7 kg 103.7 kg General appearance: PRESENT: no acute distress Head exam: PRESENT: atraumatic Eye exam: PRESENT: conjunctiva pink Neck exam: ABSENT: carotid bruit, JVD Respiratory exam: PRESENT: crackles Cardiovascular exam: PRESENT: irregular rhythm Pulses: PRESENT: +1 pedal pulses bilateral Vascular exam: PRESENT: normal capillary refill GI/Abdominal exam: PRESENT: normal bowel sounds, soft Extremities exam: PRESENT: full ROM, pedal edema Musculoskeletal exam: PRESENT: full ROM Neurological exam: PRESENT: alert, oriented to time Results Laboratory Results: 07/03/16 04:00 07/03/16 04:00 Sodium 142.7 Potassium 4.2 Chloride 106 Carbon Dioxide 27 Anion Gap 10 BUN 18 Creatinine 0.99 Est GFR ( Amer) > 60 Est GFR (Non-Af Amer) > 60 Glucose 78 Calcium 9.0 Phosphorus 4.0 Magnesium 1.8 07/01/16 07/01/16 07/01/16 08:31 08:31 15:06 Creatine Kinase 125 121 CK-MB (CK-2) 2.86 Troponin I 0.078 NT-Pro-B Natriuret Pep 07/01/16 07/01/16 07/01/16 15:06 21:17 21:17 Creatine Kinase 127 CK-MB (CK-2) 2.38 2.14 Troponin I 0.058 0.057 NT-Pro-B Natriuret Pep 07/02/16 04:14 Creatine Kinase CK-MB (CK-2) Troponin I NT-Pro-B Natriuret Pep 3990 H Impressions: Chest X-Ray 07/01/16 03:30 IMPRESSION: Constellation of findings suggests CHF pattern. Chest/Abdomen CTA 07/01/16 04:58 IMPRESSION: 1. NO CENTRAL OR SEGMENTAL PULMONARY EMBOLI. 2. KNOWN OSSEOUS METASTASES STABLE IN AND DISTRIBUTION AND APPEARANCE. Assessment & Plan - Diagnosis (1) Acute on chronic systolic heart failure Is this a current diagnosis for this admission?: YesPlan: Continue current treatment (2) Chronic atrial fibrillation Is this a current diagnosis for this admission?: YesPlan: Rate control will continue with current medication. (3) Anticoagulated on Coumadin Is this a current diagnosis for this admission?: YesPlan: Adjust dose of Coumadin (4) Hypoxia Is this a current diagnosis for this admission?: YesPlan: We will recheck the O2 sats and slowly wean off the oxygen. The hypoxemia might have been related to an acute onset of congestive heart failure (5) Accelerated hypertension Is this a current diagnosis for this admission?: YesPlan: Her blood pressure is much better controlled. The patient might have not been very compliant with his diet or medications. (6) Pleural effusion Is this a current diagnosis for this admission?: YesPlan: Most probably related to an acute congestive heart failure (7) Prostate cancer metastatic to bone Is this a current diagnosis for this admission?: YesPlan: Presently being followed and treated by the product support engineer oncologist
[2016-07-03] MEDS: FLUTICASONE/SALMETEROL DISKUS 250-50 MCG/DOSE IH SCH (09:28)
[2016-07-03] MEDS: NITROGLYCERIN 5 MG (0.2 MG/HR) PATCH.TD24 TD SCH (09:33)
[2016-07-03] MEDS: TOLTERODINE TARTRATE 1 MG TABLET PO SCH ×2 (09:33→21:38)
[2016-07-03] MEDS: ASPIRIN 81 MG TABLET, ENT COATED PO SCH (09:34)
[2016-07-03] MEDS: LISINOPRIL 10 MG TABLET PO SCH (09:34)
[2016-07-03] MEDS: POTASSIUM CHLORIDE 10 MEQ TABLET.SA PO SCH ×2 (09:34→21:38)
[2016-07-03] MEDS: METOPROLOL SUCCINATE 50 MG TAB.SR.24H PO SCH ×2 (09:34→21:39)
[2016-07-03] MEDS: FAMOTIDINE 20 MG TABLET PO SCH ×2 (09:34→21:39)
[2016-07-03] MEDS: PREDNISONE 5 MG TABLET PO SCH ×2 (09:34→17:14)
[2016-07-03] MEDS ORDERED: WARFARIN SODIUM 5 MG TABLET PO SCH ×2 (10:31→22:00)
[2016-07-03] MEDS: (Enzalutamide [Xtandi] 40 MG) PO SCH (10:36)
--- NOTE | 2016-07-03 18:23 | XCELERA REPORT ---
[address] [address] Transthoracic Echocardiogram Report Name: MAGALIE ABAD Age: 75 yrs Gender: Male : 1940 Patient Status: Inpatient Patient Location: [id number]\306\S\A Study Date: 07/03/2016 09:39 AM Height: 70 in Weight: 220 lb BSA: 2.2 m2 Procedure: A complete two-dimensional transthoracic echocardiogram was performed (2D, M-mode, spectral and color flow Doppler). The study was technically difficult with many images being suboptimal in quality. Reason For Study: heart failure Ordering Physician: MANJIT AVINA Performed By: Daisy Vargas Interpretation Summary The study was technically difficult with many images being suboptimal in quality. The Ejection Fraction estimate is 35-40% Left ventricular systolic function is moderately reduced. There is borderline concentric left ventricular hypertrophy. The left ventricle is mildly dilated. There is moderate global hypokinesis of the left ventricle. The right ventricle is mildly dilated. The right ventricular systolic function is borderline reduced. The right atrium is normal in size The left atrium is severely dilated. There is no mitral valve stenosis. There is a moderate amount of mitral regurgitation There is no aortic valve stenosis There is a trace amount of aortic regurgitation There is a trace or physiologic amount of tricuspid regurgitation Tricuspid regurgitation jet envelope not well defined to measure RV systolic pressure accurately. The aortic root is not well visualized but is probably normal size. The inferior vena cava appeared normal and decreased < 50% with respiration (RAP 10-15 mmHg) There is no pericardial effusion. MMode/2D Measurements \T\ Calculations RVDd: 3.7 cm LVIDd: 6.2 cm FS: 17.8 % Ao root diam: 3.2 cm IVSd: 0.86 cm LVIDs: 5.1 cm EDV(Teich): 192.2 ml LVPWd: 0.93 cm ESV(Teich): 122.5 ml Ao root area: 8.0 cm2 EF(Teich): 36.3 % LA dimension: 5.1 cm Doppler Measurements \T\ Calculations MV E max nemesio: MV P1/2t max nemesio: Ao V2 max: LV V1 max P.3 cm/sec 89.8 cm/sec 173.7 cm/sec 2.0 mmHg MV A max nemesio: MV P1/2t: 53.8 msec Ao max PG: LV V1 max: 29.1 cm/sec 12.1 mmHg 71.0 cm/sec MV E/A: 3.1 MVA(P1/2t): 4.1 cm2 MV dec slope: 489.3 cm/sec2 MV dec time: 0.21 sec PA V2 max: PI end-d nemesio: TR max nemesio: 73.1 cm/sec 101.6 cm/sec 237.8 cm/sec PA max PG: TR max P.1 mmHg 22.6 mmHg Left Ventricle The left ventricle is mildly dilated. There is borderline concentric left ventricular hypertrophy. Left ventricular systolic function is moderately reduced. The Ejection Fraction estimate is 35-40%. LV diastolic function could not be adequately assessed due to atrial fibrilation. There is moderate global hypokinesis of the left ventricle. Right Ventricle The right ventricle is mildly dilated. There is normal right ventricular wall thickness. The right ventricular systolic function is borderline reduced. Atria The right atrium is normal in size. The left atrium is severely dilated. Interarterial septum not well visualized and not well dopplered. Cannot comment on ASD/PFO presence. Mitral Valve There is mild mitral leaflet calcification. There is mild mitral annular calcification. There is no mitral valve stenosis. There is a moderate amount of mitral regurgitation. Aortic Valve The aortic valve is moderately calcified. There is no aortic valve stenosis. There is a trace amount of aortic regurgitation. Tricuspid Valve The tricuspid valve is not well visualized, but is grossly normal. There is no tricuspid stenosis. There is a trace or physiologic amount of tricuspid regurgitation. Tricuspid regurgitation jet envelope not well defined to measure RV systolic pressure accurately. Pulmonic Valve The pulmonic valve is not well visualized. Great Vessels The aortic root is not well visualized but is probably normal size. The inferior vena cava appeared normal and decreased < 50% with respiration (RAP 10-15 mmHg). Effusions There is no pericardial effusion. : MANJIT AVINA > Randell Ernandez
[2016-07-03] MEDS: ATORVASTATIN CALCIUM 40 MG TABLET PO SCH (21:38)
[2016-07-03] MEDS: INSULIN GLARGINE,HUM.REC.ANLOG 300 UNIT/3 ML INSULN.PEN SUBCUT SCH (21:38)
--- NOTE | 2016-07-03 23:57 | PDOC PROGRESS REPORT ---
Subjective Progress Note for:: 07/03/16 Subjective:: Breathing more comfortably with improvement in lower extremity edema Physical Exam Vital Signs: Temp Pulse Resp BP Pulse Ox 97.9 F 107 H 20 152/89 H 100 07/03/16 16:34 07/03/16 19:00 07/03/16 16:34 07/03/16 16:34 07/03/16 16:34 Intake & Output 07/02/16 07/03/16 07/04/16 06:59 06:59 06:59 Intake Total 1430 1427 1022 Output Total 1800 1400 1350 Balance -370 27 -328 Weight 103.7 kg 103.7 kg General appearance: PRESENT: no acute distress Head exam: PRESENT: normocephalic Eye exam: PRESENT: EOMI, PERRLA Ear exam: PRESENT: normal external ear exam Mouth exam: PRESENT: moist Teeth exam: PRESENT: edentulous Respiratory exam: PRESENT: clear to auscultation carmelo Cardiovascular exam: PRESENT: RRR Pulses: PRESENT: +1 pedal pulses bilateral GI/Abdominal exam: PRESENT: soft Musculoskeletal exam: PRESENT: full ROM Neurological exam: PRESENT: alert, awake Results Laboratory Results: 07/03/16 04:00 07/03/16 04:00 Sodium 142.7 Potassium 4.2 Chloride 106 Carbon Dioxide 27 Anion Gap 10 BUN 18 Creatinine 0.99 Est GFR ( Amer) > 60 Est GFR (Non-Af Amer) > 60 Glucose 78 Calcium 9.0 Phosphorus 4.0 Magnesium 1.8 07/01/16 07/01/16 07/01/16 08:31 08:31 15:06 Creatine Kinase 125 121 CK-MB (CK-2) 2.86 Troponin I 0.078 NT-Pro-B Natriuret Pep 07/01/16 07/01/16 07/01/16 15:06 21:17 21:17 Creatine Kinase 127 CK-MB (CK-2) 2.38 2.14 Troponin I 0.058 0.057 NT-Pro-B Natriuret Pep 07/02/16 04:14 Creatine Kinase CK-MB (CK-2) Troponin I NT-Pro-B Natriuret Pep 3990 H Impressions: Chest X-Ray 07/01/16 03:30 IMPRESSION: Constellation of findings suggests CHF pattern. Chest/Abdomen CTA 07/01/16 04:58 IMPRESSION: 1. NO CENTRAL OR SEGMENTAL PULMONARY EMBOLI. 2. KNOWN OSSEOUS METASTASES STABLE IN AND DISTRIBUTION AND APPEARANCE. Assessment & Plan - Diagnosis (1) Acute on chronic systolic heart failure Is this a current diagnosis for this admission?: YesPlan: Improved with diuresis and discussed foods to avoid (2) Anticoagulated on Coumadin Is this a current diagnosis for this admission?: YesPlan: Per PCP (3) Prostate cancer metastatic to bone Is this a current diagnosis for this admission?: YesPlan: Recent progression but doubt related to CHF - Time Time Spent with patient: 25-34 minutes Critical Time spent with patient: 15-24 minutes Medications reviewed and adjusted accordingly: Yes Anticipated discharge: Home Within: within 48 hours - Inpatient Certification I certify that my determination is in accordance with my understanding of Medicare's requirements for reasonable and necessary INPATIENT services [42 CFR 412.3e].: Yes Medical Necessity: Need For Continuous Telemetry Monitoring
[2016-07-04] MEDS: FUROSEMIDE INJ/PF 40 MG/4 ML SDV IV SCH (05:10)
[2016-07-04 07:29] LABS: ABSOLUTE BASOPHILS # (AUTO) 0.1 10^3/uL (0.0-0.2); ABSOLUTE EOSINOPHILS # (AUTO) 0.2 10^3/uL (0.0-0.6); ABSOLUTE LYMPHOCYTES (AUTO) 1.5 10^3/uL (0.5-4.7); ABSOLUTE MONOCYTES (AUTO) 0.6 10^3/uL (0.1-1.4); ABSOLUTE NEUT (AUTO) 7.1 10^3/uL (1.7-8.2); BASOPHILS % (AUTO) 0.6 % (0-2); EOSINOPHILS % (AUTO) 2.6 % (0-6); HEMATOCRIT 40.1 % (37.9-51.0); HEMOGLOBIN 13.1 g/dL (13.5-17.0); HGB HCT DIFFERENCE -0.8; LYMPHOCYTES % (AUTO) 15.4 % (13-45); MEAN CORPUSCULAR HEMOGLOBIN 26.8 pg (27.0-33.4); MEAN CORPUSCULAR HGB CONC 32.7 g/dL (32.0-36.0); MEAN CORPUSCULAR VOLUME 82 fl (80-97); MONOCYTES % (AUTO) 6.3 % (3-13); RED BLOOD COUNT 4.89 10^6/uL (4.35-5.55); RED CELL DISTRIBUTION WIDTH 15.6 % (11.5-14.0); SEGMENTED NEUTROPHILS % (AUTO) 75.1 % (42-78); WHITE BLOOD COUNT 9.4 10^3/uL (4.0-10.5)
[2016-07-04 07:44] LABS: PROTHROMBIN TIME 17.1 SEC (11.4-15.4)
[2016-07-04] MEDS: LEVOTHYROXINE SODIUM 0.15 MG TABLET PO SCH (07:46)
[2016-07-04 07:51] LABS: ALANINE AMINOTRANSFERASE 21 U/L (21-72); ALBUMIN 3.8 g/dL (3.5-5.0); ALKALINE PHOSPHATASE 65 U/L (38-126); ANION GAP 14 (5-19); ASPARTATE AMINO TRANSFERASE 15 U/L (17-59); BILIRUBIN,TOTAL 0.6 mg/dL (0.2-1.3); BLOOD UREA NITROGEN 17 mg/dL (7-20); CALCIUM 9.3 mg/dL (8.4-10.2); CARBON DIOXIDE 28 mmol/L (22-30); CHLORIDE 101 mmol/L (98-107); CREATININE RESULT 0.89 mg/dL (0.52-1.25); GLUCOSE 97 mg/dL (75-110); MAGNESIUM 1.7 mg/dL (1.6-2.3); SODIUM 142.9 mmol/L (137-145); TOTAL PROTEIN 6.4 g/dL (6.3-8.2)
--- NOTE | 2016-07-04 08:59 | PDOC DISCHARGE SUMMARY ---
General - Admit/Disc Date/PCP Admission Date/Primary Care Provider: 07/01/16 08:06 CARLEY JOHNSON, Discharge Date: 07/04/16 - Discharge Diagnosis (1) Acute on chronic systolic heart failure Is this a current diagnosis for this admission?: YesSummary: Improved with diureses (2) Chronic atrial fibrillation Is this a current diagnosis for this admission?: YesSummary: Stable on medication (3) Anticoagulated on Coumadin Is this a current diagnosis for this admission?: YesSummary: Corrected with adjustment of Coumadin (4) Hypoxia Is this a current diagnosis for this admission?: YesSummary: Most probably related to acute onset of congestive heart failure which has resolved with improvement in oxygenation (5) Accelerated hypertension Is this a current diagnosis for this admission?: YesSummary: Controlled with adjustment of medications (6) Pleural effusion Is this a current diagnosis for this admission?: YesSummary: Resolved with diuresis (7) Prostate cancer metastatic to bone Is this a current diagnosis for this admission?: YesSummary: Controlled and presently being followed by the threader oncologist - Additional Information Resuscitation Status: Full Code Discharge Diet: Cardiac, Diabetic Discharge Activity: Activity As Tolerated Home Medications: Aspirin [Aspirin EC] 81 mg PO DAILY 07/01/16 Calcium Carbonate/Vitamin D3 [Calcium 500-Vit D3 200 Tablet] 1 each PO DAILY Enzalutamide [Xtandi] 160 mg PO DAILY 07/01/16 Ergocalciferol (Vitamin D2) [Vitamin D2] 50,000 units PO TU@1000 07/01/16 Fluticasone/Salmeterol [Advair 250-50 Diskus 14 Dose/Diskus] 1 puff IH DAILY Insulin Aspart [Novolog Flexpen] 20 units SQ TID 07/01/16 Insulin Glargine,Hum.rec.anlog [Lantus Solostar] 80 units SQ QHS 07/01/16 Levothyroxine Sodium [Synthroid 0.15 mg Tablet] 0.15 mg PO QAM 07/01/16 Metformin HCl [Metformin HCl ER] 1,000 mg PO BID 07/01/16 Metoprolol Tartrate [Lopressor 25 mg Tablet] 25 mg PO Q12 07/01/16 Nitroglycerin [Nitromist] 1 spray SL Q5MP PRN 07/01/16 Prednisone [Deltasone 5 mg Tablet] 5 mg PO BID 07/01/16 Rosuvastatin Calcium [Crestor 5 mg Tablet] 5 mg PO QHS 07/01/16 Tolterodine Tartrate [Detrol LA] 2 mg PO DAILY 07/01/16 Warfarin Sodium [Coumadin 4 mg Tablet] 4 mg PO .DAILYEXCEPT MOWE 07/01/16 Warfarin Sodium [Coumadin 5 mg Tablet] 5 mg PO .DAILYEXCEPT MOWE 07/01/16 Warfarin Sodium [Coumadin] 10 mg PO MOWE@1000 07/01/16 Furosemide [Lasix 40 mg Tablet] 40 mg PO DAILY #30 tablet 07/04/16 Lisinopril [Prinivil 10 mg Tablet] 10 mg PO DAILY #30 tablet 07/04/16 History of Present Illness History of Present Illness: MAGALIE ABAD is a 75 year old male Hospital Course Hospital Course: The patient did well after the hospitalization she was placed on IV diuretics and down blood pressure medications. His blood pressure was well-controlled. He had significant diureses. His congestive heart failure has resolved. His oxygenation has improved. He was able to get out of bed and ambulate without assistance. His O2 saturation on room air on the discharge day was 100% Physical Exam Vital Signs: Temp Pulse Resp BP Pulse Ox 98.4 F 88 20 133/86 H 100 07/04/16 07:34 07/04/16 07:34 07/04/16 07:34 07/04/16 07:34 07/04/16 07:34 Intake & Output 07/03/16 07/04/16 07/05/16 06:59 06:59 06:59 Intake Total 1427 1572 Output Total 1400 2550 Balance 27 -978 Weight 103.7 kg 101.3 kg General appearance: PRESENT: no acute distress Head exam: PRESENT: atraumatic Eye exam: PRESENT: conjunctiva pink Neck exam: ABSENT: carotid bruit Respiratory exam: PRESENT: clear to auscultation carmelo Cardiovascular exam: PRESENT: irregular rhythm Pulses: PRESENT: +1 pedal pulses bilateral Vascular exam: PRESENT: normal capillary refill GI/Abdominal exam: PRESENT: normal bowel sounds, soft Extremities exam: PRESENT: full ROM Musculoskeletal exam: PRESENT: ambulatory Neurological exam: PRESENT: alert, oriented to time Results Laboratory Results: 07/04/16 07:00 07/04/16 07:00 07/04/16 07/04/16 07:00 07:00 WBC 9.4 RBC 4.89 Hgb 13.1 L Hct 40.1 MCV 82 MCH 26.8 L MCHC 32.7 RDW 15.6 H Plt Count 322 Seg Neutrophils % 75.1 Lymphocytes % 15.4 Monocytes % 6.3 Eosinophils % 2.6 Basophils % 0.6 Absolute Neutrophils 7.1 Absolute Lymphocytes 1.5 Absolute Monocytes 0.6 Absolute Eosinophils 0.2 Absolute Basophils 0.1 Sodium 142.9 Potassium 4.0 Chloride 101 Carbon Dioxide 28 Anion Gap 14 BUN 17 Creatinine 0.89 Est GFR ( Amer) > 60 Est GFR (Non-Af Amer) > 60 Glucose 97 Calcium 9.3 Magnesium 1.7 Total Bilirubin 0.6 AST 15 L ALT 21 Alkaline Phosphatase 65 Total Protein 6.4 Albumin 3.8 07/01/16 07/01/16 07/01/16 08:31 08:31 15:06 Creatine Kinase 125 121 CK-MB (CK-2) 2.86 Troponin I 0.078 NT-Pro-B Natriuret Pep 07/01/16 07/01/16 07/01/16 15:06 21:17 21:17 Creatine Kinase 127 CK-MB (CK-2) 2.38 2.14 Troponin I 0.058 0.057 NT-Pro-B Natriuret Pep 07/02/16 07/04/16 04:14 07:00 Creatine Kinase CK-MB (CK-2) Troponin I NT-Pro-B Natriuret Pep 3990 H 3550 H Impressions: Chest X-Ray 07/01/16 03:30 IMPRESSION: Constellation of findings suggests CHF pattern. Chest/Abdomen CTA 07/01/16 04:58 IMPRESSION: 1. NO CENTRAL OR SEGMENTAL PULMONARY EMBOLI. 2. KNOWN OSSEOUS METASTASES STABLE IN AND DISTRIBUTION AND APPEARANCE.
[2016-07-04 09:18] VITALS: BP 139/77
[2016-07-04] MEDS: FLUTICASONE/SALMETEROL DISKUS 250-50 MCG/DOSE IH SCH (09:23)
[2016-07-04] MEDS: NITROGLYCERIN 5 MG (0.2 MG/HR) PATCH.TD24 TD SCH (09:23)
[2016-07-04] MEDS: LISINOPRIL 10 MG TABLET PO SCH (09:24)
[2016-07-04] MEDS: POTASSIUM CHLORIDE 10 MEQ TABLET.SA PO SCH (09:24)
[2016-07-04] MEDS: METOPROLOL SUCCINATE 50 MG TAB.SR.24H PO SCH (09:25)
[2016-07-04] MEDS: ASPIRIN 81 MG TABLET, ENT COATED PO SCH (09:25)
[2016-07-04] MEDS: TOLTERODINE TARTRATE 1 MG TABLET PO SCH (09:25)
[2016-07-04] MEDS: FAMOTIDINE 20 MG TABLET PO SCH (09:25)
[2016-07-04] MEDS: (Enzalutamide [Xtandi] 40 MG) PO SCH (09:26)
[2016-07-04] MEDS: PREDNISONE 5 MG TABLET PO SCH (09:26)
[2016-07-04] MEDS ORDERED: FUROSEMIDE 40 MG TABLET PO SCH (10:00)
[2016-07-04] MEDS ORDERED: INSULIN GLARGINE,HUM.REC.ANLOG 1,000 UNIT/10 ML UNIT SUBCUT SCH (22:00)
== END 2016-07-04 11:50 | disposition home or self-care (01) | DRG 292 ==
LOC: ER 03:18 → EH 08:06 → 3N 10:10
PROC: 5A09357 Assistance with Respiratory Ventilation, Less than 24 Consecutive Hours, Continuous Positive Airway Pressure (ICD-10-PCS; principal; 2016-07-01)
DX: I50.23 Acute on chronic systolic (congestive) heart failure (principal); C79.51 Secondary malignant neoplasm of bone; I48.2 Chronic atrial fibrillation; I11.0 Hypertensive heart disease with heart failure; C61 Malignant neoplasm of prostate; I25.10 Atherosclerotic heart disease of native coronary artery without angina pectoris; E05.90 Thyrotoxicosis, unspecified without thyrotoxic crisis or storm; R09.02 Hypoxemia; E11.9 Type 2 diabetes mellitus without complications; I25.5 Ischemic cardiomyopathy; Z79.82 Long term (current) use of aspirin; I25.2 Old myocardial infarction; Z79.4 Long term (current) use of insulin; Z79.899 Other long term (current) drug therapy; Z87.891 Personal history of nicotine dependence; Z88.0 Allergy status to penicillin; Z95.5 Presence of coronary angioplasty implant and graft; Z60.2 Problems related to living alone; Z79.01 Long term (current) use of anticoagulants; Z83.3 Family history of diabetes mellitus; Z82.49 Family history of ischemic heart disease and other diseases of the circulatory system
CPT/HCPCS: 36415; 71010; 71275; 80048; 80053; 82550; 82553; 82803; 82962; 83036; 83735; 83880; 84100; 84484; 85025; 85610; 93005; 93010; 93306; 94660; 96361; 96374; 99285; J1815; J1940; J3490; J7030; J7512

== ENCOUNTER → 2016-08-23 | Outpatient (CLI) | payer MEDICARE, OTHER ==
[2016-08-23 10:02] LABS: APPEARANCE,URINE CLEAR; BILIRUBIN,URINE NEGATIVE (NEGATIVE); GLUCOSE, URINE NEGATIVE (NEGATIVE); KETONES,URINE NEGATIVE (NEGATIVE); LEUKOCYTE ESTERASE,URINE NEGATIVE (NEGATIVE); NITRITE,URINE NEGATIVE (NEGATIVE); PROTEIN,URINE NEGATIVE (NEGATIVE); URINE SPECIFIC GRAVITY 1.019; UROBILINOGEN,URINE NEGATIVE mg/dL (<2.0)
[2016-08-23 10:18] LABS: ALANINE AMINOTRANSFERASE 15 U/L (21-72); ALBUMIN 3.4 g/dL (3.5-5.0); ALKALINE PHOSPHATASE 75 U/L (38-126); AMYLASE 34 U/L (30-110); ANION GAP 15 (5-19); ASPARTATE AMINO TRANSFERASE 19 U/L (17-59); BILIRUBIN,DIRECT 0.3 mg/dL (0.0-0.4); BILIRUBIN,TOTAL 0.7 mg/dL (0.2-1.3); BLOOD UREA NITROGEN 21 mg/dL (7-20); CALCIUM 9.7 mg/dL (8.4-10.2); CARBON DIOXIDE 26 mmol/L (22-30); CHLORIDE 101 mmol/L (98-107); CHOLESTEROL 153.92 mg/dL (0-200); CREATININE RESULT 0.96 mg/dL (0.52-1.25); Direct HDL 34 mg/dL (>40); GLUCOSE 88 mg/dL (75-110); LIPASE 383.3 U/L (23-300); POTASSIUM 3.9 mmol/L (3.6-5.0); TOTAL PROTEIN 6.2 g/dL (6.3-8.2); TRIGLYCERIDES 332 mg/dL (<150)
[2016-08-23 10:29] LABS: DIRECT LDL 74 mg/dL (<100)
[2016-08-23 10:33] LABS: VLDL CHOLESTEROL 66.4 mg/dL (10-31)
== END ==
LOC: OD 08:55
PROVIDERS: ATTEND Internal Medicine
DX: K52.9 Noninfective gastroenteritis and colitis, unspecified (principal); K21.9 Gastro-esophageal reflux disease without esophagitis; E11.9 Type 2 diabetes mellitus without complications; I25.10 Atherosclerotic heart disease of native coronary artery without angina pectoris; I10 Essential (primary) hypertension
CPT/HCPCS: 36415; 80053; 80061; 81001; 82150; 83690; 84443

== ENCOUNTER → 2016-09-22 | Outpatient (CLI) | payer MEDICARE, OTHER | LOC: RAD 09:55 | PROVIDERS: ATTEND Specialist | DX: C61 Malignant neoplasm of prostate (principal) | CPT/HCPCS: 78306; A9503; Q9969 ==

== ENCOUNTER → 2016-09-28 | Outpatient (CLI) | payer MEDICARE, OTHER | LOC: RAD 07:33 | PROVIDERS: ATTEND Specialist | DX: C61 Malignant neoplasm of prostate (principal); C79.51 Secondary malignant neoplasm of bone | CPT/HCPCS: 71260; 74177 ==

== ENCOUNTER → 2016-11-03 | Outpatient (CLI) | payer MEDICARE, OTHER ==
--- NOTE | 2016-11-03 16:50 | RADIOLOGY REPORT (SQ) ---
EXAM DESCRIPTION: MRI LUMBAR SPINE COMBO COMPLETED DATE/TIME: 11/03/2016 4:29 pm REASON FOR STUDY: MALIGNANT NEOPLASM OF PROSTATE C61 MALIGNANT NEOPLASM OF PROSTATE COMPARISON: None. TECHNIQUE: Sagittal and Axial imaging includes T1, T1 post gadolinium, T2, STIR and gradient echo se quences. Coronal T2/HASTE imaging. CONTRAST TYPE AND DOSE: 15 mL Multihance. RENAL FUNCTION: GFR > 60. LIMITATIONS: Motion. FINDINGS: VISUALIZED UPPER ABDOMEN: Limited evaluation. No acute or suspicious findings suggested. SEGMENTATION: No transitional anatomy. The lowest well-developed disc space is labeled L5-S1. ALIGNMENT: Mild convex left scoliosis. VERTEBRAE: Intact. No fractures. BONE MARROW: Extensive abnormal marrow signal which is low on T1 and bright on T2 with heterogeneous enhancement multiple vertebral bodies. DISC SIGNAL: Desiccation multiple levels. POSTERIOR ELEMENTS: Intact. HARDWARE: None in the spine. CORD AND CONUS: Normal in size and signal intensity. Conus at the appropriate level. SOFT TISSUES: Signal void in the soft tissues dorsal to L4 suspicious for gas. L1-L2: Ventral impression on the thecal sac due to right paracentral small disc protrusion. Mild zara ral foraminal narrowing. L2-L3: Ventral impression on the thecal sac due to disc bulge. Mild neural foraminal narrowing. L3-L4: See below. L4-L5: There is a rind of abnormal soft tissue encasing the cord and displacing the nerve roots ventr ally. No abnormal enhancement within the cord. L5-S1: Ventral impression on the thecal sac due to left paracentral disc protrusion. Disc material c ontacts the exiting left L5 nerve root the neural foramen. LOWER THORACIC: Incompletely imaged. No stenosis seen. SACRUM: There is abnormal signal in the sacrum, especially left of midline extending to the edge of t he [id number]. ENHANCEMENT: See above. OTHER: No other significant findings. IMPRESSION: 1. 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 There is either gas indicating infection, or metal fore ign body in the soft tissues dorsal to L4. 2. Extensive bone metastasis which is a known finding. TECHNICAL DOCUMENTATION: JOB ID: [id number] [employer]- All Rights Reserved
== END ==
LOC: RAD 14:25
PROVIDERS: ATTEND Specialist
DX: C61 Malignant neoplasm of prostate (principal); C79.51 Secondary malignant neoplasm of bone
CPT/HCPCS: 72158; A9577

== ENCOUNTER → 2017-01-15 | Outpatient (CLI) | payer MEDICARE, OTHER ==
--- NOTE | 2017-01-15 11:00 | RADIOLOGY REPORT (SQ) ---
EXAM DESCRIPTION: CT CHEST WITH COMPLETED DATE/TIME: 01/15/2017 9:42 am REASON FOR STUDY: PROSTATE CA (C61) C61 MALIGNANT NEOPLASM OF PROSTATE COMPARISON: 09/28/2016 TECHNIQUE: CT scan of the chest performed using helical scanning technique with dynamic intravenous contrast injection. Images reviewed with lung, soft tissue and bone windows. Reconstructed coronal and sagittal MPR images reviewed. All images stored on PACS. All CT scanners at this facility use dose modulation, iterative reconstruction, and/or weight based d osing when appropriate to reduce radiation dose to as low as reasonably achievable (ALARA). [facility]: Dose Right [facility]: CareDose [facility]: Dose Right [facility]: Teradose 4D [facility]: [employer] CONTRAST TYPE AND DOSE: 98 cc Isovue 370- low osmolar. RENAL FUNCTION: Creatinine 0.9 BUN 19 RADIATION DOSE: Up-to-date CT equipment and radiation dose reduction techniques were employed. CTDIv ol: 10.4 - 12.6 mGy. DLP: 1798 mGy-cm. . LIMITATIONS: None. FINDINGS: LUNGS AND PLEURA: Mild centrilobular emphysematous changes. A stable 7 mm nodule seen in the left lower lobe on image 67 series 6. A stable subpleural nodule is seen on the right medially o n image 72. A stable 4 mm nodule is seen posteriorly on the right 69. No new pulmonary nodules are seen. There is mild subsegmental atelectasis in the lung bases. HILAR AND MEDIASTINAL STRUCTURES: No identified masses or abnormal nodes. HEART AND VASCULAR STRUCTURES: No aneurysm or dissection. Extensive coronary atherosclerosis. No pe ricardial effusion. HARDWARE: None in the chest. UPPER ABDOMEN: See separate report of the CT of the abdomen. THYROID AND OTHER SOFT TISSUES: No masses. No adenopathy. BONES: Sclerotic lesions are seen in T3 and T8 in the thoracic spine and in the upper lumbar spine. . OTHER: No other significant finding. IMPRESSION: 1. Mild pulmonary emphysema. 2 stable small pulmonary nodules in the lower lobes 3. Extensive coronary atherosclerosis. 4. Stable bone metastases. TECHNICAL DOCUMENTATION: JOB ID: [id number] Quality ID # [id number]: Final reports with documentation of one or more dose reduction techniques (e.g., Au tomated exposure control, adjustment of the mA and/or kV according to patient size, use of iterative reconstruction technique) 2010 [employer]- All Rights Reserved
--- NOTE | 2017-01-15 11:17 | RADIOLOGY REPORT (SQ) ---
EXAM DESCRIPTION: CT ABD/PELVIS WITH IV ORAL COMPLETED DATE/TIME: 01/15/2017 9:42 am REASON FOR STUDY: PROSTATE CA (C61) C61 MALIGNANT NEOPLASM OF PROSTATE COMPARISON: 09/28/2016 TECHNIQUE: CT scan of the abdomen and pelvis performed using helical scanning technique with dynamic intravenous contrast injection. No oral contrast. Images reviewed with lung, soft tissue, and bone windows. Reconstructed coronal and sagittal MPR images reviewed. Delayed images for evaluation of the urinary system also acquired. All images stored on PACS. All CT scanners at this facility use dose modulation, iterative reconstruction, and/or weight based d osing when appropriate to reduce radiation dose to as low as reasonably achievable (ALARA). [facility]: Dose Right [facility]: CareDose [facility]: Dose Right [facility]: Teradose 4D [facility]: [employer] CONTRAST TYPE AND DOSE: contrast/concentration: Isovue 370.00 mg/ml; Total Contrast Delivered: 98.0 ml; Total Saline Delivered: 70.0 ml RENAL FUNCTION: Creatinine 0.9 BUN 19 RADIATION DOSE: Total DLP for both studies: 1798 mGy cm. LIMITATIONS: None. FINDINGS: LOWER CHEST: See separate report of the CT of the chest. LIVER: There is a stable 2 cm hepatic cyst. SPLEEN: Normal size. No focal lesions. PANCREAS: No masses. No significant calcifications. No adjacent inflammation or peripancreatic fluid collections. Pancreatic duct not dilated. GALLBLADDER: Surgically absent. ADRENAL GLANDS: No significant masses or asymmetry. RIGHT KIDNEY AND URETER: No solid masses. No significant calcifications. No hydronephrosis or hyd roureter. LEFT KIDNEY AND URETER: No solid masses. There is a parapelvic cyst. No significant calcifications . No hydronephrosis or hydroureter. AORTA AND VESSELS: There is no aneurysm or dissection. Dense atherosclerosis is present. This invol ves the origins of the major vessels as well as the aorta. RETROPERITONEUM: There is periaortic adenopathy on the left that appears relatively stable. BOWEL AND PERITONEAL CAVITY: There are numerous diverticular arising from the descending colon and si gmoid colon with no associated inflammatory changes. APPENDIX: Normal. PELVIS: The urinary bladder is normal. There is fullness of the seminal vesicle on the right side. This is stable. ABDOMINAL WALL: No masses. No hernias. BONES: Numerous sclerotic metastases are seen in the lumbar spine and pelvis. These appear relativel y stable. OTHER: No other significant finding. IMPRESSION: 1. Osseous metastases are present and stable. 2. There is periaortic adenopathy that appears stable. 3. There is stable fullness of the right seminal vesicle. 4. There is extensive atherosclerosis. TECHNICAL DOCUMENTATION: JOB ID: [id number] Quality ID # [id number]: Final reports with documentation of one or more dose reduction techniques (e.g., Au tomated exposure control, adjustment of the mA and/or kV according to patient size, use of iterative reconstruction technique) 2010 [employer]- All Rights Reserved
== END ==
LOC: RAD 09:00
PROVIDERS: ATTEND Internal Medicine
DX: C61 Malignant neoplasm of prostate (principal)
CPT/HCPCS: 71260; 74177

== ENCOUNTER → 2017-01-19 | Outpatient (CLI) | payer MEDICARE, OTHER ==
--- NOTE | 2017-01-20 14:06 | RADIOLOGY REPORT (SQ) ---
EXAM DESCRIPTION: NM WHOLE BODY BONE SCAN COMPLETED DATE/TIME: 01/19/2017 12:43 pm REASON FOR STUDY: PROSTATE CA (C61 C61 MALIGNANT NEOPLASM OF PROSTATE COMPARISON: Prior bone scan 09/22/2016 MRI lumbar spine 11/03/2016 CT chest abdomen pelvis 01/15/2017 RADIONUCLIDE AND DOSE: 22 millicuries Tc99m MDP. The route of agent administration: Intravenous. ADDITIONAL DRUGS AND DOSES: None. TECHNIQUE: Routine delayed images at 3 hours post radionuclide injection acquired of the bony skelet on including anterior and posterior whole-body projections and additional focused images as needed. LIMITATIONS: None. FINDINGS: Since the prior bone scan, patient has developed increased uptake in the anterior left 7th rib at the costochondral cartilage -rib junction. Stable increased activity right 4th and 5th anterior ribs at the costochondral cartilage -rib junctio n. Stable increased uptake left bony glenoid at the shoulder. Stable spotty increased uptake over the thoracic spine with increased vertebral body activity at T7 o r T8. Stable increased activity at the L3 and L4 lumbar vertebral bodies and along the left half of the sac rum. IMPRESSION: Single new lesion along the anterior left 7th rib. Otherwise stable bone scan compared to 09/22/2016 COMMENT: PQRS 3570F: Current bone scan is compared with any available plain radiographs, prior bone scans, and CT/MRI. TECHNICAL DOCUMENTATION: JOB ID: [id number] [employer]- All Rights Reserved
== END ==
LOC: RAD 08:33
PROVIDERS: ATTEND Internal Medicine
DX: C61 Malignant neoplasm of prostate (principal)
CPT/HCPCS: 78306; A9561; Q9969

== ENCOUNTER 2017-09-13 02:47 | Emergency (ER) | payer MEDICARE, OTHER ==
[2017-09-13 03:44] LABS: HEMATOCRIT 34.6 % (37.9-51.0); HEMOGLOBIN 11.5 g/dL (13.5-17.0); MEAN CORPUSCULAR HEMOGLOBIN 26.5 pg (27.0-33.4); MEAN CORPUSCULAR HGB CONC 33.1 g/dL (32.0-36.0); MEAN CORPUSCULAR VOLUME 80 fl (80-97); PLATELET COUNT 298 10^3/uL (150-450); RED BLOOD COUNT 4.32 10^6/uL (4.35-5.55); RED CELL DISTRIBUTION WIDTH 17.4 % (11.5-14.0); WHITE BLOOD COUNT 7.6 10^3/uL (4.0-10.5)
[2017-09-13 03:48] LABS: INTERNATIONAL RATION (INR) 1.21
[2017-09-13 03:49] LABS: PARTIAL THROMBOPLASTIN TIME 31.8 SEC (23.5-35.8)
--- NOTE | 2017-09-13 03:53 | ER Document Report ---
HPI - HPI Pain Level: Denies Notes: Patient is a 76-year-old male with history of prostate cancer, cancer in the bones of his back, heart disease, hypertension who presents to the ED complaining of 2 nosebleeds throughout the night that have since resolved themselves. Patient states that he does take warfarin daily. Patient states otherwise he feels well and was able to stop the last nosebleed before he arrived to emergency department, but he was you are ready so wanted to get checked out. Patient states that he has had nosebleeds in the past as well that he was able to stop at home. He has no other concerns or complaints. He denies any dizziness that was reported in the pivot note. Patient states that he is able to ambulate without any difficulties. Denies any headache, fever, head injury, neck pain, changes in vision/speech/mentation/hearing, URI, sore throat, chest pain, palpitations, syncope, cough, shortness of breath, wheeze, dyspnea, abdominal pain, nausea/vomiting/diarrhea, urinary retention, dysuria, hematuria, loss of control of bowel or bladder, numbness/tingling, saddle anesthesia, muscle paralysis/weakness, or rash. - ROS Systems Reviewed and Negative: Yes All other systems reviewed and negative Past Medical History - Social History Smoking Status: Unknown if Ever Smoked Family History: CAD, DM - Past Medical History Cardiac Medical History: Reports: Hx Congestive Heart Failure, Hx Coronary Artery Disease, Hx Heart Attack - x 4 (1993 x2, 1999 x 2), Hx Hypertension - ON MEDS Denies: Hx Hypercholesterolemia Pulmonary Medical History: Reports: Hx Pneumonia - Years ago Denies: Hx Asthma, Hx Bronchitis, Hx COPD Neurological Medical History: Denies: Hx Cerebrovascular Accident, Hx Seizures Endocrine Medical History: Reports: Hx Diabetes Mellitus Type 1, Hx Hyperthyroidism Malignancy Medical History: Reports Hx Bone Cancer GI Medical History: Denies: Hx Hepatitis, Hx Hiatal Hernia, Hx Ulcer Musculoskeltal Medical History: Denies Hx Arthritis Psychiatric Medical History: Reports: Hx Depression Infectious Medical History: Denies: Hx Hepatitis Past Surgical History: Reports: Hx Thyroid Surgery. Denies: Hx Open Heart Surgery - ANGIOPLASTY 1993,1999, Hx Pacemaker - Immunizations Hx Diphtheria, Pertussis, Tetanus Vaccination: Yes Hx Pneumococcal Vaccination: 06/04/11 Vertical Provider Document - CONSTITUTIONAL Agree With Documented VS: Yes Notes: PHYSICAL EXAMINATION: GENERAL: Well-appearing, well-nourished and in no acute distress. A&Ox4. Answers questions appropriately. Moves comfortably w/o notable distress HEAD: Atraumatic, normocephalic. EYES: Pupils equal round and reactive to light, extraocular movements intact, sclera anicteric, conjunctiva are normal. ENT: EAC clear b/l. TM's intact b/l without erythema, fluid, or perforation. Nares patent and with dried bloody discharge on the rt, no active bleeding. oropharynx w/o erythema without exudates. No tonsilar hypertrophy without erythema or exudate. No palatine shift. Uvula midline. No tongue protrusion. No drooling, hoarseness, or airway compromise. Moist mucous membranes. No sinus tenderness. NECK: Normal range of motion, supple without lymphadenopathy. No rigidity/ meningismus. LUNGS: Breath sounds clear to auscultation bilaterally and equal. No wheezes rales or rhonchi. No retractions HEART: Regular rate and rhythm without murmurs, rubs, gallops. NEUROLOGICAL: Cranial nerves grossly intact. Normal speech, normal gait with SPC. Normal sensory, motor exams PSYCH: Normal mood, normal affect. SKIN: Warm, Dry, normal turgor, no rashes or lesions noted. - INFECTION CONTROL TRAVEL OUTSIDE OF THE [place] IN LAST 30 DAYS: No Course - Re-evaluation Re-evalutation: 09/13/17 04:52 Patient is an afebrile, well-hydrated, 76-year-old male who presents to the ED with a nosebleed, since resolved prior to arrival. Vitals are acceptable. PE is otherwise unremarkable. CBC, BMP, PTT/PT/INR were unremarkable for any acute pathology. Patient has not had any recurrence of his nosebleed. Patient states that he feels well and wants to go home. He is no new concerns or complaints at this time. Low suspicion for any severe anemia, dehydration, shock, or other systemic emergent condition at this time. Patient is tolerating p.o. without any difficulties. Recheck with your PCM in 3-5 days. Return to the ED with any worsening/concerning symptoms otherwise as reviewed discharge. Patient is in agreement. - Vital Signs Vital signs: Temp Pulse Resp BP Pulse Ox 97.9 F 61 18 146/74 H 96 04/12/18 02:52 09/13/17 02:52 09/13/17 02:52 09/13/17 02:52 09/13/17 02:52 - Laboratory Result Diagrams: 09/13/17 03:25 09/13/17 03:25 Laboratory results interpreted by me: 09/13/17 03:25 PT 16.0 H Discharge - Discharge Clinical Impression: Nosebleed Condition: Stable Disposition: HOME, SELF-CARE Instructions: Nosebleed Instructions (OM) Additional Instructions: Maintain adequate fluid and food intake Take home medications as directed Monitor blood pressure closely Monitor for any acute changes in her symptoms or uncontrollable nosebleeding Recheck with your PCM in 3-5 days Return to the ED with any worsening symptoms and/or development of fever, headache, chest pain, palpitations, syncope, shortness of breath, trouble breathing, abdominal pain, n/v/d, blood in stool/urine, uncontrollable bleeding , dizziness, weakness, or other worsening symptoms that are concerning to you. Forms: Elevated Blood Pressure Referrals: MAGALIE YANES DO [ASSOCIATE] - Follow up as needed
[2017-09-13 04:07] LABS: ANION GAP 11 (5-19); BLOOD UREA NITROGEN 20 mg/dL (7-20); CALCIUM 9.1 mg/dL (8.4-10.2); CARBON DIOXIDE 27 mmol/L (22-30); CHLORIDE 102 mmol/L (98-107); GLUCOSE 111 mg/dL (75-110); POTASSIUM 4.3 mmol/L (3.6-5.0); SODIUM 139.9 mmol/L (137-145)
[2017-09-13 04:11] LABS: ABSOLUTE LYMPHOCYTES# (MANUAL) 1.1 10^3/uL (0.5-4.7); ABSOLUTE MONOCYTES # (MANUAL) 0.2 10^3/uL (0.1-1.4); ABSOLUTE NEUTROPHILS# (MANUAL) 6.1 10^3/uL (1.7-8.2); BASOPHILS % (MANUAL) 0 % (0-2); EOSINOPHILS % (MANUAL) 3 % (0-6); LYMPHOCYTES % (MANUAL) 14 % (13-45); MONOCYTES % (MANUAL) 3 % (3-13); SEGMENTED NEUTROPHILS % (MAN) 80 % (42-78); TOTAL CELLS COUNTED 100
[2017-09-13 04:12] LABS: ANISOCYTOSIS 1+; PLATELET COMMENT ADEQUATE; POIKILOCYTOSIS SLIGHT; TEAR DROP CELLS SLIGHT; TOXIC GRANULATION 1+
[2017-09-13 05:58] VITALS: BP 144/65
== END 2017-09-13 05:08 | disposition home or self-care (01) ==
LOC: ER 02:47
DX: R04.0 Epistaxis (principal); Z85.46 Personal history of malignant neoplasm of prostate; Z79.01 Long term (current) use of anticoagulants; Z85.830 Personal history of malignant neoplasm of bone; I25.10 Atherosclerotic heart disease of native coronary artery without angina pectoris; I25.2 Old myocardial infarction; I10 Essential (primary) hypertension; Z79.899 Other long term (current) drug therapy; E10.9 Type 1 diabetes mellitus without complications
CPT/HCPCS: 36415; 80048; 85025; 85610; 85730; 99283

== ENCOUNTER 2017-09-22 20:46 | Emergency (ER) | payer MEDICARE, OTHER ==
--- NOTE | 2017-09-22 22:58 | ER Document Report ---
ED General - General Chief Complaint: Fall Injury Stated Complaint: FALL,BACK PAIN Time Seen by Provider: 09/22/17 22:22 Mode of Arrival: Wheelchair Information source: Patient, Relative, [facility] Records Notes: 76-year-old male history of prostate cancer back cancer, presents with complaints of left leg weakness. Patient states he has fallen twice has generalized difficulty ambulating and weakness TRAVEL OUTSIDE OF THE [place] IN LAST 30 DAYS: No - HPI Onset: Yesterday Onset/Duration: Sudden Quality of pain: No pain Severity: Mild Pain Level: 2 Associated symptoms: None Exacerbated by: Denies Relieved by: Denies Similar symptoms previously: No Recently seen / treated by doctor: Yes - Related Data Allergies/Adverse Reactions: Penicillins Allergy (Mild, Verified 09/22/17 20:47) Rash Past Medical History - Social History Smoking Status: Never Smoker Cigarette use (# per day): No Chew tobacco use (# tins/day): No Smoking Education Provided: No Family History: CAD, DM - Past Medical History Cardiac Medical History: Reports: Hx Congestive Heart Failure, Hx Coronary Artery Disease, Hx Heart Attack - x 4 (1993 x2, 1999 x 2), Hx Hypertension - ON MEDS Denies: Hx Hypercholesterolemia Pulmonary Medical History: Reports: Hx Pneumonia - Years ago Denies: Hx Asthma, Hx Bronchitis, Hx COPD Neurological Medical History: Denies: Hx Cerebrovascular Accident, Hx Seizures Endocrine Medical History: Reports: Hx Diabetes Mellitus Type 1, Hx Hyperthyroidism Renal/ Medical History: Denies: Hx Peritoneal Dialysis Malignancy Medical History: Reports Hx Bone Cancer GI Medical History: Denies: Hx Hepatitis, Hx Hiatal Hernia, Hx Ulcer Musculoskeltal Medical History: Denies Hx Arthritis Psychiatric Medical History: Reports: Hx Depression Infectious Medical History: Denies: Hx Hepatitis Past Surgical History: Reports: Hx Thyroid Surgery. Denies: Hx Open Heart Surgery - ANGIOPLASTY 1993,1999, Hx Pacemaker - Immunizations Hx Diphtheria, Pertussis, Tetanus Vaccination: Yes Hx Pneumococcal Vaccination: 06/04/11 Review of Systems - Review of Systems Notes: REVIEW OF SYSTEMS: CONSTITUTIONAL : Denies fever, chills, or sweats. Denies recent illness. EENT: Denies eye, ear, throat, or mouth pain or symptoms. Denies nasal or sinus congestion or discharge. Denies throat, tongue, or mouth swelling or difficulty swallowing. CARDIOVASCULAR: Denies chest pain. Denies palpitations or racing or irregular heart beat. Denies ankle edema. RESPIRATORY: Denies cough, cold, or chest congestion. Denies shortness of breath, difficulty breathing, or wheezing. GASTROINTESTINAL: Denies abdominal pain or distention. Denies nausea, vomiting , or diarrhea. Denies blood in vomitus, stools, or per rectum. Denies black, tarry stools. Denies constipation. GENITOURINARY: Denies difficulty urinating, painful urination, burning, frequency, blood in urine, or discharge. MUSCULOSKELETAL: admits to left leg weakness SKIN: Denies rash, lesions or sores. HEMATOLOGIC : Denies easy bruising or bleeding. LYMPHATIC: Denies swollen, enlarged glands. NEUROLOGICAL: Denies confusion or altered mental status. Denies passing out or loss of consciousness. Denies dizziness or lightheadedness. Denies headache. Denies weakness or paralysis or loss of use of either side. Denies problems with gait or speech. Denies sensory loss, numbness, or tingling. Denies seizures. PSYCHIATRIC: Denies anxiety or stress. Denies depression, suicidal ideation, or homicidal ideation. ALL OTHER SYSTEMS REVIEWED AND NEGATIVE. Dictation was performed using [employer] voice recognition software PHYSICAL EXAMINATION: GENERAL: Well-appearing, well-nourished and in no acute distress. HEAD: Atraumatic, normocephalic. EYES: Pupils equal round and reactive to light, extraocular movements intact, sclera anicteric, conjunctiva are normal. ENT: Nares patent, oropharynx clear without exudates. Moist mucous membranes. NECK: Normal range of motion, supple without lymphadenopathy LUNGS: Breath sounds clear to auscultation bilaterally and equal. No wheezes rales or rhonchi. HEART: Regular rate and rhythm without murmurs ABDOMEN: Soft, nontender, nondistended abdomen. No guarding, no rebound. No masses appreciated. Musculoskeletal: pt has good strenth at rest, but when trying to ambulate he has no strenght of the leg NEUROLOGICAL: Cranial nerves grossly intact. Normal speech, Normal sensory, PSYCH: Normal mood, normal affect. SKIN: Warm, Dry, normal turgor, no rashes or lesions noted. Physical Exam - Vital signs Vitals: Temp Pulse Resp BP Pulse Ox 99.7 F 87 18 109/61 95 09/22/17 21:12 09/22/17 21:12 09/22/17 21:12 09/22/17 21:12 09/22/17 21:12 Course - Re-evaluation Re-evalutation: 09/22/17 23:35 ct head noted no acute abnormality, mri ordered but unable to perform untl the morning. 09/22/17 23:[address] carrera she requests ct imaging 09/23/17 02:[address] Carrera, she requests transfer [facility] paged 09/23/17 02:42 Dr Duque will accept transfer - Vital Signs Vital signs: Temp Pulse Resp BP Pulse Ox 99.7 F 87 18 109/61 95 09/22/17 21:12 09/22/17 21:12 09/22/17 21:12 09/22/17 21:12 09/22/17 21:12 - Laboratory Result Diagrams: 09/22/17 22:50 09/22/17 22:50 Laboratory results interpreted by me: 09/22/17 09/22/17 22:50 22:50 WBC 12.0 H RBC 4.25 L Hgb 11.1 L Hct 33.4 L MCV 79 L MCH 26.2 L RDW 18.4 H Seg Neutrophils % 87.2 H Lymphocytes % 5.2 L Absolute Neutrophils 10.5 H Sodium 134.1 L BUN 30 H Glucose 124 H Direct Bilirubin 0.7 H AST 68 H ALT 14 L Alkaline Phosphatase 269 H Creatine Kinase 279 H Albumin 3.3 L - Diagnostic Test Radiology reviewed: Image reviewed - CT lumbar spine with contrast notes extensive metastasis, Reports reviewed Discharge - Discharge Clinical Impression: Prostate cancer metastatic to bone, Acute on chronic systolic heart failure, Left leg weakness Condition: Stable Disposition: [facility] Referrals: BRADY WALKER MD [Primary Care Provider] - Follow up as needed
[2017-09-22 23:16] LABS: ABSOLUTE LYMPHOCYTES (AUTO) 0.6 10^3/uL (0.5-4.7); ABSOLUTE MONOCYTES (AUTO) 0.9 10^3/uL (0.1-1.4); ABSOLUTE NEUT (AUTO) 10.5 10^3/uL (1.7-8.2); BASOPHILS % (AUTO) 0.4 % (0-2); EOSINOPHILS % (AUTO) 0.1 % (0-6); HEMATOCRIT 33.4 % (37.9-51.0); HEMOGLOBIN 11.1 g/dL (13.5-17.0); LYMPHOCYTES % (AUTO) 5.2 % (13-45); MEAN CORPUSCULAR HEMOGLOBIN 26.2 pg (27.0-33.4); MEAN CORPUSCULAR HGB CONC 33.4 g/dL (32.0-36.0); MEAN CORPUSCULAR VOLUME 79 fl (80-97); MONOCYTES % (AUTO) 7.1 % (3-13); PLATELET COUNT 212 10^3/uL (150-450); RED BLOOD COUNT 4.25 10^6/uL (4.35-5.55); RED CELL DISTRIBUTION WIDTH 18.4 % (11.5-14.0); SEGMENTED NEUTROPHILS % (AUTO) 87.2 % (42-78); TOTAL CELLS COUNTED % (AUTO) 100 %
[2017-09-22 23:17] LABS: ALANINE AMINOTRANSFERASE 14 U/L (21-72); ALBUMIN 3.3 g/dL (3.5-5.0); ALKALINE PHOSPHATASE 269 U/L (38-126); ANION GAP 13 (5-19); ASPARTATE AMINO TRANSFERASE 68 U/L (17-59); BILIRUBIN,DIRECT 0.7 mg/dL (0.0-0.4); BILIRUBIN,TOTAL 1.3 mg/dL (0.2-1.3); BLOOD UREA NITROGEN 30 mg/dL (7-20); CALCIUM 8.4 mg/dL (8.4-10.2); CARBON DIOXIDE 22 mmol/L (22-30); CHLORIDE 99 mmol/L (98-107); CREATINE KINASE 279 U/L (55-170); GLUCOSE 124 mg/dL (75-110); POTASSIUM 3.8 mmol/L (3.6-5.0); SODIUM 134.1 mmol/L (137-145); TOTAL PROTEIN 6.3 g/dL (6.3-8.2)
--- NOTE | 2017-09-22 23:20 | RADIOLOGY REPORT (SQ) ---
EXAM DESCRIPTION: CT HEAD WITHOUT COMPLETED DATE/TIME: 09/22/2017 11:07 pm REASON FOR STUDY: left leg weakness COMPARISON: None. TECHNIQUE: Axial images acquired through the brain without intravenous contrast. Images reviewed wi th bone, brain and subdural windows. Additional sagittal and coronal reconstructions were generated. Images stored on PACS. All CT scanners at this facility use dose modulation, iterative reconstruction, and/or weight based d osing when appropriate to reduce radiation dose to as low as reasonably achievable (ALARA). [facility]: Dose Right [facility]: CareDose [facility]: Dose Right [facility]: Teradose 4D [facility]: Smart [employer] RADIATION DOSE: CT Rad equipment meets quality standard of care and radiation dose reduction techniq ues were employed. CTDIvol: 53.2 mGy. DLP: 1017 mGy-cm. mGy. LIMITATIONS: None. FINDINGS: VENTRICLES: Normal size and contour. CEREBRUM: No masses. No hemorrhage. No midline shift. No evidence for acute infarction. Normal gra y/white matter differentiation. No areas of low density in the white matter. CEREBELLUM: No masses. No hemorrhage. No alteration of density. No evidence for acute infarction. EXTRAAXIAL SPACES: No fluid collections. No masses. ORBITS AND GLOBE: No intra- or extraconal masses. Normal contour of globe without masses. CALVARIUM: No fracture. PARANASAL SINUSES: Mucosal thickening and fluid left maxillary sinus. SOFT TISSUES: No mass or hematoma. OTHER: No other significant finding. IMPRESSION: 1. Left maxillary sinus disease. 2. No acute intracranial abnormality. EVIDENCE OF ACUTE STROKE: NO. COMMENT: Quality ID # [id number]: Final reports with documentation of one or more dose reduction techniques (e.g., Automated exposure control, adjustment of the mA and/or kV according to patient size, use of iterative reconstruction technique) TECHNICAL DOCUMENTATION: JOB ID: [id number] [employer]- All Rights Reserved Reading location - IP/workstation name: [email or web address]
[2017-09-22 23:28] LABS: CREATINE KINASE MB 0.96 ng/mL (<4.55); TROPONIN I 0.029 ng/mL
--- NOTE | 2017-09-22 23:45 | RADIOLOGY REPORT (SQ) ---
EXAM DESCRIPTION: CHEST 2 VIEWS COMPLETED DATE/TIME: 09/22/2017 11:34 pm REASON FOR STUDY: weakness COMPARISON: 2012. TECHNIQUE: Frontal and lateral radiographic views of the chest acquired. NUMBER OF VIEWS: Two view. LIMITATIONS: None. FINDINGS: LUNGS AND PLEURA: No opacities, masses or pneumothorax. No pleural effusion. MEDIASTINUM AND HILAR STRUCTURES: No masses or contour abnormalities. HEART AND VASCULAR STRUCTURES: Heart normal size. No evidence for failure. BONES: No acute findings. HARDWARE: None in the chest. OTHER: No other significant finding. IMPRESSION: NO SIGNIFICANT RADIOGRAPHIC FINDING IN THE CHEST. TECHNICAL DOCUMENTATION: JOB ID: [id number] [employer]- All Rights Reserved Reading location - IP/workstation name: [email or web address]
--- NOTE | 2017-09-23 00:47 | RADIOLOGY REPORT (SQ) ---
EXAM DESCRIPTION: FEMUR LEFT CLINICAL HISTORY: bone cancer COMPARISON: None. FINDINGS: 3 views of the left femur. No acute fracture or dislocation. Normal osseous mineralization. Atherosclerotic vascular calcification. Postoperative changes in the pelvis. Degenerative change of the left hip and knee. IMPRESSION: 1. No acute fracture or dislocation. No definite sclerotic lesions identified in the left femur.
--- NOTE | 2017-09-23 01:21 | RADIOLOGY REPORT (SQ) ---
EXAM DESCRIPTION: CT LUMBAR SPINE WITH CLINICAL HISTORY: left leg weakness COMPARISON: None available TECHNIQUE: Axial CT of the lumbar spine obtained without contrast. FINDINGS: Alignment of the lumbar spine is maintained without evidence of subluxation. Extensive sclerotic lesions noted throughout the osseous structures of the lumbar spine and pelvis affecting the L2, L3, L4, and L5 vertebral bodies as well as sacrum, bilateral ileum, and left pubic symphysis. Many of these lesions appear to enhance. No fracture identified. Vertebral body height preserved. Degenerative changes: L1/2: Moderate loss of intervertebral disc height with endplate spondylosis and facet arthropathy. Broad-based mild posterior disc bulge. No definite osseous central canal narrowing. Mild bilateral neural foraminal narrowing. L2/3: Moderate to severe loss of intervertebral disc height with endplate spondylosis and facet arthropathy. Broad-based posterior disc bulge. No definite central canal narrowing. Mild bilateral neural foraminal narrowing. L3/4: Moderate loss of intervertebral disc height. Broad-based posterior disc bulge. Effacement of the anterior thecal sac. Ligament flavum hypertrophy. Facet arthropathy. Possible mild spinal canal narrowing. Moderate bilateral neural foraminal narrowing. L4/5: Mild loss of intervertebral disc height with broad-based posterior disc bulge. Ligament flavum hypertrophy. Facet arthropathy. Likely narrowing of the spinal canal. Moderate bilateral neural foraminal narrowing. L5/S1: Moderate loss of intervertebral disc height with broad-based posterior disc bulge. Facet arthropathy. No definite central canal narrowing. Moderate bilateral neural foraminal narrowing. Aortoiliac atherosclerosis. Left retroperitoneal soft tissue mass visualized measuring 6.0 x 3.8 cm. Enhancing nodule arising from the posterior aspect of the left kidney measuring 1.0 cm. Prior cholecystectomy. No definite abnormalities of the spleen, pancreas, or adrenal glands. Partial visualization of likely hepatic cysts. Scattered diverticula of the colon. No dilated loops of large or small bowel. Normal appendix. In the right pelvic soft tissues there is an enhancing soft tissue nodule measuring 2.9 x 2.0 cm with apparent internal calcifications. No abnormalities of the urinary bladder. DLP: 829.77 mGy-cm IMPRESSION: 1. Multilevel enhancing sclerotic lesions throughout the visualized lumbar spine, sacrum, and pelvis. No definite acute fracture identified. 2. There is a 6.0 cm left retroperitoneal soft tissue mass concerning for neoplasm or metastatic disease. 3. Enhancing partially calcified nodule in the right pelvis measuring 2.9 cm metastatic disease. 4. 1.0 cm enhancing nodule arising from the posterior aspect of the interpolar left kidney. This is concerning for renal cell carcinoma. 5. Moderate to severe degenerative change throughout the visualized lumbar spine. This exam was performed according to our departmental dose-optimization program, which includes automated exposure control, adjustment of the mA and/or kV according to patient size and/or use of iterative reconstruction technique.
[2017-09-23 03:57] LABS: PROTHROMBIN TIME 29.9 SEC (11.4-15.4)
[2017-09-23 07:48] LABS: APPEARANCE,URINE CLEAR; BILIRUBIN,URINE NEGATIVE (NEGATIVE); COLOR,URINE YELLOW; GLUCOSE, URINE NEGATIVE (NEGATIVE); KETONES,URINE NEGATIVE (NEGATIVE); LEUKOCYTE ESTERASE,URINE NEGATIVE (NEGATIVE); NITRITE,URINE NEGATIVE (NEGATIVE); PROTEIN,URINE 30 mg/dL (NEGATIVE); URINE SPECIFIC GRAVITY 1.028
[2017-09-23 09:51] VITALS: BP 89/50
--- NOTE | 2017-09-23 10:11 | RADIOLOGY REPORT (SQ) ---
EXAM DESCRIPTION: MRI LUMBAR SPINE WITHOUT COMPLETED DATE/TIME: 09/23/2017 9:37 am REASON FOR STUDY: left leg weakness COMPARISON: CT from 09/23/2017 and MRI from 11/03/2016 TECHNIQUE: Sagittal and Axial imaging includes T1, T2, STIR and gradient echo sequences. Coronal T2/ HASTE imaging. LIMITATIONS: None. FINDINGS: VISUALIZED ABDOMEN/SOFT TISSUES: Limited evaluation of retroperitoneal masses with the lar gest at the level of the left renal artery seen on series 6 image 11. SEGMENTATION: No transitional anatomy. The lowest well-developed disc space is labeled L5-S1. ALIGNMENT: Stable alignment and curvature. VERTEBRAE: Intact. BONE MARROW: Extensive osseous metastatic disease which S progressed compared to the prior MRI with n ew lesions identified in the T12 and L1 vertebral bodies and progression of disease in the sacrum and L2 through L4 L5 VERTEBRAL BODIES. No pathologic fracture identified. DISC SIGNAL: Stable degree of advanced multilevel degenerative disc disease. POSTERIOR ELEMENTS: Grossly stable osseous metastatic disease. No fracture. HARDWARE: None in the spine. CORD AND CONUS: Normal in size and signal intensity. Conus at the appropriate level. There appears t o have been some interval decrease in size of dural mass at the L4 level as seen on series 3 image 7 however evaluation is limited due to lack of contrast. No additional lesions identified. L1-L2: Stable advanced disc disease with osteophyte formation along with ligamentum flavum hypertroph y and facet arthropathy. Stable mild spinal canal stenosis and neural foraminal narrowing. L2-L3: Stable diffuse disc osteophyte and bilateral facet arthropathy. Stable mild bilateral neural foraminal narrowing. No significant spinal canal stenosis. L3-L4: Stable diffuse disc bulging/ osteophytosis with ligamentum flavum hypertrophy and facet arthro gladys resulting in mild spinal canal stenosis and moderate to severe bilateral neural foraminal narro wing. L4-L5: Stable disc osteophyte with small central protrusion along with ligamentum flavum hypertrophy and facet arthropathy. Stable mild spinal canal stenosis and moderate to severe neural foraminal atiya rowing. L5-S1: Stable disc osteophyte the centric to the left along with ligamentum flavum hypertrophy and fa cet arthropathy. Stable mild spinal canal stenosis. Stable severe left neural foraminal narrowing w ith impingement of the exiting L5 nerve root and transiting S1 nerve root. Stable mild right neural foraminal narrowing. LOWER THORACIC: Incompletely imaged. No stenosis seen. SACRUM: Visualized upper sacrum intact. OTHER: No other significant findings. IMPRESSION: INTERVAL PROGRESSION OF OSSEOUS METASTATIC DISEASE DETAILED ABOVE. NO PATHOLOGIC FRA CTURE IDENTIFIED. APPARENT INTERVAL IMPROVEMENT OF THE DURAL METASTATIC DISEASE HOWEVER LIMITED DUE TO LACK OF CONTRAST MATERIAL. STABLE ADVANCED DEGENERATIVE CHANGE DETAILED ABOVE. TECHNICAL DOCUMENTATION: JOB ID: [id number] [employer]- All Rights Reserved Reading location - IP/workstation name: [email or web address]
== END 2017-09-23 10:05 | disposition short-term general hospital (02) ==
LOC: ER 20:46
DX: C61 Malignant neoplasm of prostate (principal); C79.51 Secondary malignant neoplasm of bone; I50.23 Acute on chronic systolic (congestive) heart failure; M62.81 Muscle weakness (generalized); M54.9 Dorsalgia, unspecified; Z85.46 Personal history of malignant neoplasm of prostate; W19.XXXA Unspecified fall, initial encounter; I25.10 Atherosclerotic heart disease of native coronary artery without angina pectoris; I10 Essential (primary) hypertension; I25.2 Old myocardial infarction
CPT/HCPCS: 36415; 70450; 71046; 72132; 72148; 72193; 80053; 81001; 82550; 82553; 84484; 85025; 85610; 99285

== ENCOUNTER 2017-10-10 19:57 | Emergency (ER) | payer MEDICARE, OTHER ==
[2017-10-10] MEDS ORDERED: OXYMETAZOLINE HCL 0.05% NASAL SPRAY 15 ML BOTTLE NASL ONE (20:35)
[2017-10-10 21:32] LABS: INTERNATIONAL RATION (INR) 1.21; PROTHROMBIN TIME 15.9 SEC (11.4-15.4)
--- NOTE | 2017-10-10 21:47 | ER Document Report ---
ED General - General Chief Complaint: Nose Bleed Stated Complaint: NOSE BLEEDING Time Seen by Provider: 10/10/17 20:27 Mode of Arrival: Ambulatory Information source: Patient Notes: Patient presents with complaint of nosebleed to the right nare. Patient reports that this started about an hour prior to my evaluation. Patient reports that he is on Coumadin. Patient reports he has had similar episodes in the past with the last one being approximately 2 months ago. Patient denies any trauma to the area. TRAVEL OUTSIDE OF THE [place] IN LAST 30 DAYS: No - Related Data Allergies/Adverse Reactions: Penicillins Allergy (Mild, Verified 09/22/17 20:47) Rash Past Medical History - General Information source: Patient - Social History Smoking Status: Former Smoker Chew tobacco use (# tins/day): No Frequency of alcohol use: None Drug Abuse: None Family History: CAD, DM Patient has suicidal ideation: No Patient has homicidal ideation: No - Past Medical History Cardiac Medical History: Reports: Hx Congestive Heart Failure, Hx Coronary Artery Disease, Hx Heart Attack - x 4 (1993 x2, 1999 x 2), Hx Hypertension - ON MEDS Denies: Hx Hypercholesterolemia Pulmonary Medical History: Reports: Hx Pneumonia - Years ago Denies: Hx Asthma, Hx Bronchitis, Hx COPD Neurological Medical History: Denies: Hx Cerebrovascular Accident, Hx Seizures Endocrine Medical History: Reports: Hx Diabetes Mellitus Type 1, Hx Hyperthyroidism Renal/ Medical History: Denies: Hx Peritoneal Dialysis Malignancy Medical History: Reports Hx Bone Cancer GI Medical History: Denies: Hx Hepatitis, Hx Hiatal Hernia, Hx Ulcer Musculoskeltal Medical History: Denies Hx Arthritis Psychiatric Medical History: Reports: Hx Depression Infectious Medical History: Denies: Hx Hepatitis Past Surgical History: Reports: Hx Open Heart Surgery - ANGIOPLASTY 1993,1999, Hx Thyroid Surgery. Denies: Hx Pacemaker - Immunizations Hx Diphtheria, Pertussis, Tetanus Vaccination: Yes Hx Pneumococcal Vaccination: 06/04/11 Review of Systems - Review of Systems Constitutional: No symptoms reported EENT: Other - Epistaxis Cardiovascular: No symptoms reported Respiratory: No symptoms reported Gastrointestinal: No symptoms reported Genitourinary: No symptoms reported Male Genitourinary: No symptoms reported Musculoskeletal: No symptoms reported Skin: No symptoms reported Hematologic/Lymphatic: No symptoms reported Neurological/Psychological: No symptoms reported Physical Exam - Vital signs Vitals: Temp Pulse Resp BP Pulse Ox 98.6 F 92 22 H 132/63 H 95 10/10/17 20:02 10/10/17 20:02 10/10/17 20:02 10/10/17 20:02 10/10/17 20:02 - Notes Notes: PHYSICAL EXAMINATION: GENERAL: Well-appearing, well-nourished and in no acute distress. HEAD: Atraumatic, normocephalic. EYES: Pupils equal round and reactive to light, extraocular movements intact, sclera anicteric, conjunctiva are normal. ENT: Nares patent, oropharynx clear without exudates. Bleeding noted to the anterior right nare. No blood noted in oropharynx. Moist mucous membranes. NECK: Normal range of motion, supple without lymphadenopathy LUNGS: Breath sounds clear to auscultation bilaterally and equal. No wheezes rales or rhonchi. HEART: Regular rate and rhythm without murmurs ABDOMEN: Deferred. Musculoskeletal: Normal range of motion, no pitting or edema. No cyanosis. NEUROLOGICAL: Cranial nerves grossly intact. Normal speech, normal gait. Normal sensory, motor exams PSYCH: Normal mood, normal affect. SKIN: Warm, Dry, normal turgor, no rashes or lesions noted. Course - Re-evaluation Re-evalutation: Patient presents with approximate 60 minute history of nosebleed. Patient reports that this is on the right side only. Patient has gauze currently in place. Upon initial examination there is no active bleeding however there is a large clot blocking the right nare. Patient's oropharynx inspected and there is no bleeding noted. Will apply Afrin onto cotton ball and pack right nare after patient blows his nose to remove clots that are present. Reexamined patient approximately 10 minutes after Afrin applied in the right knee via cotton ball. There is no active bleeding. Patient will be reevaluated again approximately 15-20 minutes. Will draw PT/INR as patient is on Coumadin. Reexamination shows no active bleeding. INR is subtherapeutic and patient understands the need to follow-up with his primary care provider regarding this. Copy of labs will be given. Patient will be discharged with impregnated cottonball in place with directions to remove in 2 hours. Patient and family member at bedside understand and agree to the plan of care. Patient understands his return precautions to include additional nosebleeds that he is unable to stop with direct pressure. - Vital Signs Vital signs: Temp Pulse Resp BP Pulse Ox 98.5 F 74 14 119/72 97 10/10/17 22:01 10/10/17 22:01 10/10/17 22:01 10/10/17 22:01 10/10/17 22:01 - Laboratory Laboratory results interpreted by me: 10/10/17 21:05 PT 15.9 H Discharge - Discharge Clinical Impression: Anterior epistaxis Condition: Stable Disposition: HOME, SELF-CARE Additional Instructions: Nosebleed Instructions There is a significant chance of re-bleeding following a nosebleed. Proper care makes this less likely. Do not touch the nose for 24 hours. Do not blow the nose forcefully for one week. After 24 hours, gently apply Vaseline ointment to both nostrils with the tip of a finger, three times a day, for one week. It's normal to have a bloody mucous discharge for a few days. If active bleeding recurs, blow all the blood from the nose, then sit quietly and pinch the nose as firmly as possible for 10 minutes. If this does not stop the bleeding, return for further care. Remove the cotton from your nose in about two hours. Persons with frequent nosebleeds should avoid aspirin (unless prescribed for another reason). Humidity in the bedroom, and petroleum jelly applied to the nostrils at night may help. Please follow-up with your primary care doctor in the next 2-3 days. Your INR is subtherapeutic. I have attached a copy of the results for you to take to your physician.
[2017-10-10 22:06] VITALS: BP 119/72
== END 2017-10-10 22:08 | disposition home or self-care (01) ==
LOC: ER 19:57
DX: R04.0 Epistaxis (principal); I25.10 Atherosclerotic heart disease of native coronary artery without angina pectoris; I10 Essential (primary) hypertension; I25.2 Old myocardial infarction; E10.9 Type 1 diabetes mellitus without complications; Z79.01 Long term (current) use of anticoagulants; Z88.0 Allergy status to penicillin; Z87.891 Personal history of nicotine dependence
CPT/HCPCS: 99283; 36415; 85610; 30901; J3490

== ENCOUNTER 2017-10-22 06:56 | Day surgery (SDC) | payer MEDICARE, OTHER ==
--- NOTE | 2017-10-22 08:01 | RADIOLOGY REPORT (SQ) ---
EXAM DESCRIPTION: CHEST SINGLE VIEW COMPLETED DATE/TIME: 10/22/2017 7:47 am REASON FOR STUDY: preop COMPARISON: CT chest 01/15/2017, 09/28/2016 Two-view chest 09/22/2017 AP chest 07/01/2016 EXAM PARAMETERS: NUMBER OF VIEWS: One view. TECHNIQUE: Single frontal radiographic view of the chest acquired. RADIATION DOSE: NA LIMITATIONS: None. FINDINGS: LUNGS AND PLEURA: No opacities, masses or pneumothorax. No pleural effusion. MEDIASTINUM AND HILAR STRUCTURES: No masses. Contour normal. HEART AND VASCULAR STRUCTURES: No cardiomegaly. Tortuous uncoiled thoracic aorta BONES: No acute findings. HARDWARE: None in the chest. OTHER: No other significant finding. IMPRESSION: No acute findings TECHNICAL DOCUMENTATION: JOB ID: [id number] [employer]- All Rights Reserved Reading location - IP/workstation name: [email or web address]
[2017-10-22 08:15] LABS: HEMATOCRIT 30.6 % (37.9-51.0); MEAN CORPUSCULAR HEMOGLOBIN 26.8 pg (27.0-33.4); MEAN CORPUSCULAR HGB CONC 32.9 g/dL (32.0-36.0); MEAN CORPUSCULAR VOLUME 82 fl (80-97); PLATELET COUNT 252 10^3/uL (150-450); RED BLOOD COUNT 3.75 10^6/uL (4.35-5.55); RED CELL DISTRIBUTION WIDTH 19.5 % (11.5-14.0); WHITE BLOOD COUNT 4.9 10^3/uL (4.0-10.5)
[2017-10-22 08:30] LABS: INTERNATIONAL RATION (INR) 1.07; PARTIAL THROMBOPLASTIN TIME 25.5 SEC (23.5-35.8); PROTHROMBIN TIME 14.5 SEC (11.4-15.4)
[2017-10-22 08:33] LABS: ANION GAP 13 (5-19); BLOOD UREA NITROGEN 16 mg/dL (7-20); CALCIUM 8.3 mg/dL (8.4-10.2); CARBON DIOXIDE 23 mmol/L (22-30); CHLORIDE 106 mmol/L (98-107); GLUCOSE 86 mg/dL (75-110); POTASSIUM 4.2 mmol/L (3.6-5.0); SODIUM 141.5 mmol/L (137-145)
[2017-10-22] MEDS ORDERED: LIDOCAINE 0.5% INJ-PF (5 MG/ML) 50 ML SDV ONE (08:43)
[2017-10-22] MEDS ORDERED: MIDAZOLAM 2 MG/2 ML INJ ONE (08:43)
[2017-10-22] MEDS ORDERED: BACITRACIN INJ 50,000 UNIT VIAL ONE (08:44)
[2017-10-22] MEDS ORDERED: FENTANYL CITRATE INJ/PF 100 MCG/2 ML AMPUL ONE (08:44)
--- NOTE | 2017-10-22 10:14 | Operative Report ---
Operative Report DATE OF SURGERY: 10/22/17 PREOPERATIVE DIAGNOSIS: Prostatic malignancy POSTOPERATIVE DIAGNOSIS: Same OPERATION: 1. Focused ultrasound right neck. 2. Placement of right subclavian single-chamber [id number] catheter. 3. Interpretation of intraoperative fluoroscopy SURGEON: ABIODUN PURCELL ANESTHESIA: Moderate Sedation TISSUE REMOVED OR ALTERED: none COMPLICATIONS: none ESTIMATED BLOOD LOSS: none INTRAOPERATIVE FINDINGS: none PROCEDURE: Patient was taken from the laboratory surgery to the main catheterization lab with the patient placed supine position arms tucked right neck and chest wall prepped and draped sterile fashion with chlorhexidine. Surgical plan and surgical timeout were conducted. Right neck was scanned with the variable frequency linear transducer. Findings were significant for patent, compressible vein suitable for cannulation. Skin was anesthetized 1% plain lidocaine. Micro needle and wire threaded into the right internal jugular vein and confirmed to be in good position by fluoroscopy. Suitable site for placement of the port was chosen right subclavian position. Skin was anesthetized 1% plain lidocaine, 4 cm incision was made with a knife 15 blade and a pocket developed large enough to accommodate a single-chamber port was developed with blunt dissection electrocautery. Catheter was trimmed the appropriate length tunneled between the 2 incisions, attached to the port with the plastic ring. The port was tucked into the pocket, micro needle and wire switched over to a conventional guidewire using the micro introducer. A 9 Macedonian dilator and introducer were threaded over the conventional guidewire, guidewire dilator removed, catheter threaded into the right internal jugular vein. With some manipulation of the catheter at the IJ site, all kinks were removed, and the tip of the catheter is in superior vena cava. There is no evidence of ectopy. There was excellent aspiration of blood flow through the catheter. Wounds closed with a 3-0 Vicryl benzoin Steri-Strips. Patient taught procedure well, no complications. Discharge instructions provided.
--- NOTE | 2017-10-22 10:15 | Discharge Summary ---
Discharge Summary (SDC) - Discharge Final Diagnosis: Prostate Cancer Date of Surgery: 10/22/17 Discharge Date: 10/22/17 Condition: Good Treatment or Instructions: Patient may use catheter; may shower in 48 hours; follow-up with [place] [facility] in 2 weeks; take Tylenol or Motrin as needed pain. Referrals: CARLEY JOHNSON MD [Primary Care Provider] - Discharge Diet: As Tolerated Discharge Activity: Activity As Tolerated Home Care Assistance: None Needed Report the Following to Your Physician Immediately: Shortness of Breath, Increase in Pain, Fever over 101 Degrees
[2017-10-22] MEDS ORDERED: CLINDAMYCIN 300 MG/D5W RTU 300 MG/50 ML RTUPB IV PRN (10:48)
[2017-10-22] MEDS ORDERED: DEXTROSE 5%-1/2 NORMAL SALINE 1,000 ML IV PRN (10:49)
[2017-10-22] MEDS ORDERED: OXYCODONE-ACETAMINOPHEN 5-325 MG TABLET PO PRN (10:49)
[2017-10-22] MEDS ORDERED: DIAZEPAM 5 MG TABLET PO PRN (10:49)
--- NOTE | 2017-10-22 11:03 | RADIOLOGY REPORT (SQ) ---
EXAM DESCRIPTION: PORTACATH INSERTION; GUIDANCE FLUOROSCOPIC COMPLETED DATE/TIME: 10/22/2017 10:16 am REASON FOR STUDY: NEED FOR VASCULAR ACCESS Z79.01 [facility] (CURRENT) USE OF ANTICOAGULANTS COMPARISON: AP chest 10/22/2017 FLUOROSCOPY TIME: Less than 10 seconds 4 series of digital radiographic images saved to PACS. TECHNIQUE: Intra-operative images acquired during surgical procedure to evaluate progress. NUMBER OF IMAGES: 4 digital radiographic images saved to pac's LIMITATIONS: None. FINDINGS: Intra procedural imaging and fluoro during placement of a right-sided permanent central li ne with the tip in the superior vena cava. Please see the operative report for further details. IMPRESSION: Intra procedural imaging and fluoro COMMENT: Quality ID 145: Final reports for procedures using fluoroscopy that document radiation exp osure indices, or exposure time and number of fluorographic images (if radiation exposure indices are not available) Please consult full operative report of the attending physician for description of the procedure. TECHNICAL DOCUMENTATION: JOB ID: [id number] [employer]- All Rights Reserved Reading location - IP/workstation name: [email or web address]
--- NOTE | 2017-10-22 11:03 | RADIOLOGY REPORT (SQ) ---
EXAM DESCRIPTION: PORTACATH INSERTION; GUIDANCE FLUOROSCOPIC COMPLETED DATE/TIME: 10/22/2017 10:16 am REASON FOR STUDY: NEED FOR VASCULAR ACCESS Z79.01 [facility]ENT[facility] (CURRENT) USE OF ANTICOAGULANTS COMPARISON: AP chest 10/22/2017 FLUOROSCOPY TIME: Less than 10 seconds 4 series of digital radiographic images saved to PACS. TECHNIQUE: Intra-operative images acquired during surgical procedure to evaluate progress. NUMBER OF IMAGES: 4 digital radiographic images saved to pac's LIMITATIONS: None. FINDINGS: Intra procedural imaging and fluoro during placement of a right-sided permanent central li ne with the tip in the superior vena cava. Please see the operative report for further details. IMPRESSION: Intra procedural imaging and fluoro COMMENT: Quality ID 145: Final reports for procedures using fluoroscopy that document radiation exp osure indices, or exposure time and number of fluorographic images (if radiation exposure indices are not available) Please consult full operative report of the attending physician for description of the procedure. TECHNICAL DOCUMENTATION: JOB ID: [id number] [employer]- All Rights Reserved Reading location - IP/workstation name: [email or web address]
[2017-10-22 11:44] VITALS: BP 111/69
== END 2017-10-22 11:30 | disposition home or self-care (01) ==
LOC: CCL 06:56
PROVIDERS: ATTEND Surgery
DX: C61 Malignant neoplasm of prostate (principal); M19.90 Unspecified osteoarthritis, unspecified site; E89.0 Postprocedural hypothyroidism; E11.9 Type 2 diabetes mellitus without complications; I10 Essential (primary) hypertension; I48.91 Unspecified atrial fibrillation; K62.5 Hemorrhage of anus and rectum; I25.2 Old myocardial infarction; Z85.830 Personal history of malignant neoplasm of bone; Z79.82 Long term (current) use of aspirin; Z87.891 Personal history of nicotine dependence; Z79.899 Other long term (current) drug therapy; Z79.01 Long term (current) use of anticoagulants; Z79.4 Long term (current) use of insulin
CPT/HCPCS: 36415; 85027; 85610; 85730; 80048; 36561; 76937; 77001; 71045; C1752; C1788; Q9967; J2250; J3490 ×3; A9270 ×2; J3010; J1644

== ENCOUNTER → 2017-12-21 | Outpatient (CLI) | payer MEDICARE, OTHER ==
--- NOTE | 2017-12-21 10:37 | RADIOLOGY REPORT (SQ) ---
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 Images reviewed with lung, soft tissue and bone windows. Reconstructed coronal a nd sagittal MPR images reviewed. All images stored on PACS. CT scan of the abdomen and pelvis performed with intravenous and with oral contrastusing helical scan grace technique with dynamic intravenous contrast injection. Images reviewed with lung, soft tissue a nd bone windows. Reconstructed coronal and sagittal MPR images reviewed. Delayed images for evaluat ion of the urinary system also acquired and evaluated. All images stored on PACS. All CT scanners at this facility use dose modulation, iterative reconstruction, and/or weight based d osing when appropriate to reduce radiation dose to as low as reasonably achievable (ALARA). [facility]: Dose Right [facility]: CareDose [facility]: Dose Right [facility]: Teradose 4D [facility]: [employer] RADIATION DOSE: CT Rad equipment meets quality standard of care and radiation dose reduction techniq ues were employed. CTDIvol: 9.5 - 12.4 mGy. DLP: 1682 mGy-cm. . LIMITATIONS: None. FINDINGS: CHEST: LUNGS AND PLEURA: Small bilateral pleural effusions are present, new compared to previous exams. Mild bibasilar atelectasis. No pneumothorax. No pulmonary nodules. HILAR AND MEDIASTINAL STRUCTURES: No identified masses or abnormal nodes. HEART AND VASCULAR STRUCTURES: No pericardial effusion. Heavily calcified aortic valve and coronary arteries. No cardiomegaly. HARDWARE: Right-sided permanent central line tip superior vena cava THYROID AND OTHER SOFT TISSUES: No masses. No adenopathy. BONES: T8 bony vertebral body metastatic lesion is stable. Multiple tiny rib lesions are present, si milar compared to CT chest 01/15/2017 OTHER: No other significant finding. ABDOMEN AND PELVIS: LIVER: Normal size. No masses. No dilated ducts. 2 cm stable cyst left lobe liver SPLEEN: Normal size. No focal lesions. PANCREAS: No masses. No significant calcifications. No adjacent inflammation or peripancreatic fluid collections. Pancreatic duct not dilated. GALLBLADDER: Surgically absent ADRENAL GLANDS: Right adrenal gland unremarkable. There is now a left adrenal mass 3 x 2.5 cm in siz e on axial image 24 worrisome for a metastatic lesion RIGHT KIDNEY AND URETER: No solid masses. No significant calcification. No hydronephrosis or hydroure ter. 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 2 cm left lower pole p arapelvic cyst. No significant calcification. No hydronephrosis or hydroureter. AORTA AND VESSELS: AA 3.9 x 3.8 cm left retroperitoneal lymph node mass encases the left renal artery , best shown on axial images 26-37. This is larger than on previous CT 01/15/2017 where it measured 3 .1 x 1.4 cm in size. RETROPERITONEUM: No retroperitoneal adenopathy, hemorrhage or masses. BOWEL AND PERITONEAL CAVITY: Patient drank oral contrast. Colonic diverticuli without CT signs of ac jay diverticulitis. No masses or inflammatory changes. No free fluid or peritoneal masses. APPENDIX: Normal. ABDOMINAL WALL: No masses. No hernias. PELVIS: No mass or free fluid. Normal bladder. No pelvic adenopathy. BONES: Diffuse bony metastatic disease throughout the lumbar spine and pelvis, similar compared to MR I 09/23/2017. OTHER: No other significant finding. IMPRESSION: New bilateral small pleural effusions with bibasilar atelectasis Increasing in size of left retroperitoneal adenopathy which encases the left renal artery New left adrenal mass Stable bony metastatic disease over the chest abdomen pelvis TECHNICAL DOCUMENTATION: JOB ID: [id number] Quality ID # [id number]: Final reports with documentation of one or more dose reduction techniques (e.g., Au tomated exposure control, adjustment of the mA and/or kV according to patient size, use of iterative reconstruction technique) 2010 [employer]- All Rights Reserved Reading location - IP/workstation name: [email or web address] [id number]
== END ==
LOC: RAD 08:05
PROVIDERS: ATTEND Internal Medicine
DX: C61 Malignant neoplasm of prostate (principal); C79.51 Secondary malignant neoplasm of bone
CPT/HCPCS: 71260; 74177; 82565

== ENCOUNTER → 2017-12-24 | Outpatient (CLI) | payer MEDICARE, OTHER ==
--- NOTE | 2017-12-24 13:26 | RADIOLOGY REPORT (SQ) ---
EXAM DESCRIPTION: NM WHOLE BODY BONE SCAN COMPLETED DATE/TIME: 12/24/2017 12:59 pm REASON FOR STUDY: MALIGNANT NEOPLASM OF PROSTATE C61 MALIGNANT NEOPLASM OF PROSTATE COMPARISON: 09/22/2016, 01/19/2017. CT scans December 2017 RADIONUCLIDE AND DOSE: 21.7 millicuries Tc99m HDP. The route of agent administration: Intravenous. ADDITIONAL DRUGS AND DOSES: None. TECHNIQUE: Routine delayed images at 3 hours post radionuclide injection acquired of the bony skelet on including anterior and posterior whole-body projections and additional focused images as needed. LIMITATIONS: None. FINDINGS: BONES: Marked increase in the metastatic lesions. Multiple new lesions in the spine ribs and pelvis. New lesion along the left lesser trochanter. Slightly improved lesions lower lumbar spi ne compare with previous. KIDNEYS: Symmetric excretion without obstruction. OTHER: No other significant finding. IMPRESSION: Marked progressive I disease since the previous study. Extensive lesions in the spine a nd pelvis and ribs as well as left lesser trochanter. Slight improvement in the mid lumbar vertebral bodies since the prior study. COMMENT: Quality measure 147: Current bone scan is compared with any available plain radiographs, p rior bone scans, and CT/MRI. TECHNICAL DOCUMENTATION: JOB ID: [id number] [employer]- All Rights Reserved Reading location - IP/workstation name: [email or web address]
== END ==
LOC: RAD 08:36
PROVIDERS: ATTEND Internal Medicine
DX: C61 Malignant neoplasm of prostate (principal)
CPT/HCPCS: 78306; A9561

== ENCOUNTER 2018-01-27 22:27 | Observation (INO) | payer MEDICARE, OTHER ==
[2018-01-27] MEDS ORDERED: DEXTROSE 50%-WATER 25 GM/50 ML DISP.SYRIN IV ONE ×2 (22:34→22:41)
[2018-01-27] MEDS ORDERED: DEXTROSE 5%-1/2 NORMAL SALINE 1,000 ML IV PRN (22:42)
--- NOTE | 2018-01-27 22:45 | ER Document Report ---
ED General - General Stated Complaint: BLOOD SUGAR PROBLEM Time Seen by Provider: 01/27/18 22:35 Notes: Patient is a 77-year-old male that comes emergency department for chief complaint of not feeling well and hypoglycemia. He comes by EMS, EMS was called because patient did not feel good for the past 2 hours, they found that he was hypoglycemic in the 30s, he was given a sandwich, orange juice, this was rechecked and it was in the 50s, he was given another orange juice, this was rechecked and it was in the 40s, after this he was given D10 300 ml and oral glucose and it came up only into the 60s. Patient states he took 20 units of NovoLog prior to eating dinner but he states this is normal for him, he also takes Lantus. He denies oral diabetic medications. He denies chest pain, fever , he does report that he has had a worsening cough over the past few days but denies symptoms otherwise. Past medical history of afib, prostate cancer, currently on chemotherapy with Dr. Canales. TRAVEL OUTSIDE OF THE [place] IN LAST 30 DAYS: No - Related Data Allergies/Adverse Reactions: Penicillins Allergy (Mild, Verified 01/27/18 23:24) Rash Past Medical History - General Information source: Patient, Relative - daughter - Social History Smoking Status: Never Smoker Frequency of alcohol use: None Drug Abuse: None Lives with: Family Family History: CAD, DM - Past Medical History Cardiac Medical History: Reports: Hx Congestive Heart Failure, Hx Coronary Artery Disease, Hx Heart Attack, Hx Hypertension Denies: Hx Hypercholesterolemia Pulmonary Medical History: Reports: Hx COPD Denies: Hx Asthma, Hx Bronchitis, Hx Pneumonia Neurological Medical History: Denies: Hx Cerebrovascular Accident, Hx Seizures Endocrine Medical History: Reports: Hx Diabetes Mellitus Type 1, Hx Hyperthyroidism Renal/ Medical History: Denies: Hx Peritoneal Dialysis Malignancy Medical History: Reports Hx Bone Cancer GI Medical History: Denies: Hx Hepatitis, Hx Hiatal Hernia, Hx Ulcer Musculoskeletal Medical History: Reports Hx Arthritis Psychiatric Medical History: Reports: Hx Depression Infectious Medical History: Denies: Hx Hepatitis Past Surgical History: Reports: Hx Open Heart Surgery - ANGIOPLASTY 1993,1999, Hx Thyroid Surgery. Denies: Hx Pacemaker - Immunizations Hx Diphtheria, Pertussis, Tetanus Vaccination: Yes Hx Pneumococcal Vaccination: 06/04/11 Review of Systems - Review of Systems Constitutional: See HPI EENT: No symptoms reported Cardiovascular: No symptoms reported Respiratory: No symptoms reported Gastrointestinal: No symptoms reported Genitourinary: No symptoms reported Male Genitourinary: No symptoms reported Musculoskeletal: No symptoms reported Skin: No symptoms reported Hematologic/Lymphatic: No symptoms reported Neurological/Psychological: No symptoms reported Physical Exam - Vital signs Vitals: Temp Resp BP Pulse Ox 97.6 F 27 H 135/81 H 97 01/27/18 22:33 01/27/18 22:33 01/27/18 22:33 01/27/18 22:33 - Notes Notes: GENERAL: Alert, interacts well. No acute distress. HEAD: Normocephalic, atraumatic. EYES: Pupils equal, round, and reactive to light. Extraocular movements intact. ENT: Oral mucosa moist, tongue midline. NECK: Full range of motion. Supple. Trachea midline. LUNGS: Clear to auscultation bilaterally, no wheezes, rales, or rhonchi. No respiratory distress. HEART:Normal rate, irregular rhythm. No murmur ABDOMEN: Soft, non-tender. Non-distended. Bowel sounds present in all 4 quadrants. EXTREMITIES: Moves all 4 extremities spontaneously. No edema, normal radial and dorsalis pedis pulses bilaterally. No cyanosis. BACK: no cervical, thoracic, lumbar midline tenderness. No saddle anesthesia, normal distal neurovascular exam. NEUROLOGICAL: Alert and oriented x3. Normal speech. [cranial nerves II through XII grossly intact]. PSYCH: Normal affect, normal mood. SKIN: Warm, dry, normal turgor. No rashes or lesions noted. Course - Re-evaluation Re-evalutation: Patient asymptomatic on my evaluation, he is alert and oriented. He cannot remember if he took his Lantus tonight but he thinks he did not. He states that he always takes 20 units of NovoLog insulin before meals. Because of patient's extra meal, extra juice, D10, and initial presentation of blood glucose in the 50s he was given dextrose amp and then placed on D5 half- normal continuous. Initial blood chemistry shows that his blood glucose did come up to 297, however this was rechecked 20 minutes later and was found to be 94. Drip is running now, this was reevaluated in 1 hour and found to be 100 even. Continuous dextrose appears to be working. Vital signs, workup, do not indicate infection, IN, I suspect this was medication related. Because of persistent hypoglycemia trend requiring dextrose drip will discuss with hospitalist for admission. Discussed with Dr. Qiu. Discussed with patient and daughter, they state understanding and agreement. Discussed with Dr. Antonio, internal medicine, patient will be admitted to [facility] observation. - Vital Signs Vital signs: Temp Pulse Resp BP Pulse Ox 97.6 F 16 149/76 H 97 01/27/18 22:33 01/28/18 01:31 01/28/18 01:31 01/28/18 01:31 - Laboratory Result Diagrams: 01/27/18 22:45 01/27/18 22:45 Laboratory results interpreted by me: 01/27/18 01/27/18 01/27/18 22:45 22:45 22:45 RBC 3.79 L Hgb 10.2 L Hct 31.1 L RDW 21.2 H Seg Neuts % (Manual) 92 H Lymphocytes % (Manual) 7 L Monocytes % (Manual) 1 L PT 33.0 H Potassium 3.4 L BUN 23 H Glucose 297 H Discharge - Discharge Clinical Impression: Hypoglycemia Condition: Stable Disposition: ADMITTED OBSERVATION Admitting Provider: Hospitalist Unit Admitted: [facility]
[2018-01-27 22:59] LABS: HEMATOCRIT 31.1 % (37.9-51.0); HEMOGLOBIN 10.2 g/dL (13.5-17.0); MEAN CORPUSCULAR HGB CONC 32.9 g/dL (32.0-36.0); MEAN CORPUSCULAR VOLUME 82 fl (80-97); PLATELET COUNT 191 10^3/uL (150-450); RED BLOOD COUNT 3.79 10^6/uL (4.35-5.55); RED CELL DISTRIBUTION WIDTH 21.2 % (11.5-14.0); WHITE BLOOD COUNT 8.3 10^3/uL (4.0-10.5)
[2018-01-27 23:16] LABS: ANION GAP 11 (5-19); BLOOD UREA NITROGEN 23 mg/dL (7-20); CALCIUM 8.4 mg/dL (8.4-10.2); CARBON DIOXIDE 24 mmol/L (22-30); CHLORIDE 103 mmol/L (98-107); GLUCOSE 297 mg/dL (75-110); POTASSIUM 3.4 mmol/L (3.6-5.0); SODIUM 138.3 mmol/L (137-145)
[2018-01-27 23:34] LABS: ABSOLUTE LYMPHOCYTES# (MANUAL) 0.6 10^3/uL (0.5-4.7); ABSOLUTE MONOCYTES # (MANUAL) 0.1 10^3/uL (0.1-1.4); ABSOLUTE NEUTROPHILS# (MANUAL) 7.6 10^3/uL (1.7-8.2); BASOPHILS % (MANUAL) 0 % (0-2); EOSINOPHILS % (MANUAL) 0 % (0-6); LYMPHOCYTES % (MANUAL) 7 % (13-45); MONOCYTES % (MANUAL) 1 % (3-13); SEGMENTED NEUTROPHILS % (MAN) 92 % (42-78); TOTAL CELLS COUNTED 100
[2018-01-27 23:36] LABS: ANISOCYTOSIS 3+; BURR CELLS SLIGHT; OVALOCYTES SLIGHT; PLATELET COMMENT ADEQUATE; POIKILOCYTOSIS SLIGHT; TEAR DROP CELLS SLIGHT
[2018-01-27 23:38] LABS: TOXIC GRANULATION SLIGHT
--- NOTE | 2018-01-27 23:51 | RADIOLOGY REPORT (SQ) ---
CXR- 1 VIEW Clinical history: 77-year-old male with worsening cough. Comparison: 22 Oct 2017 Technique: 1 view of the chest submitted for review. Findings: Right-sided Port-A-Cath is seen with tip overlying the SVC. Lung volumes are low with blunting of bilateral costophrenic angles. There is interstitial opacity seen in the lung bases. The cardiac silhouette measures borderline enlarged. The cardiac silhouette measures within normal. Pulmonary vascularity is unremarkable. Impression: Bibasilar pleural effusions.
[2018-01-28] MEDS ORDERED: IPRATROPIUM/ALBUTEROL 0.5-2.5 MG/3 ML AMPUL NEB PRN (01:19)
[2018-01-28] MEDS ORDERED: PROMETHAZINE HCL INJ 25 MG/1 ML VIAL IV PRN (01:19)
[2018-01-28] MEDS ORDERED: MAG HYDROX/AL HYDROX/SIMETH SUSP 30 ML UDCUP PO PRN (01:19)
[2018-01-28] MEDS ORDERED: ACETAMINOPHEN 325 MG TABLET PO PRN (01:19)
[2018-01-28] MEDS ORDERED: GLUCAGON,HUMAN RECOMB 1 MG INJ IM PRN (01:26)
[2018-01-28] MEDS ORDERED: DEXTROSE 40% GEL 15 GM TUBE PO PRN ×2 (01:26)
[2018-01-28] MEDS ORDERED: DEXTROSE 50%-WATER 25 GM/50 ML DISP.SYRIN IV PRN ×2 (01:26)
[2018-01-28] MEDS ORDERED: POTASSIUM CHLORIDE 20 MEQ/15 ML UDCUP PO ONE (01:45)
[2018-01-28 01:49] LABS: APPEARANCE,URINE CLEAR; BILIRUBIN,URINE NEGATIVE (NEGATIVE); COLOR,URINE YELLOW; GLUCOSE, URINE NEGATIVE (NEGATIVE); KETONES,URINE NEGATIVE (NEGATIVE); LEUKOCYTE ESTERASE,URINE NEGATIVE (NEGATIVE); NITRITE,URINE NEGATIVE (NEGATIVE); PROTEIN,URINE 30 mg/dL (NEGATIVE); URINE SPECIFIC GRAVITY 1.013; UROBILINOGEN,URINE NEGATIVE mg/dL (<2.0)
[2018-01-28 01:51] LABS: INTERNATIONAL RATION (INR) 3.05
--- NOTE | 2018-01-28 01:51 | PDOC H&P ---
History of Present Illness Admission Date/PCP: 01/28/18 01:09 CARLEY JOHNSON MD Patient complains of: "feeling bad" History of Present Illness: MAGALIE ABAD is a 77 year old male that comes emergency department for chief complaint of not feeling well and hypoglycemia after supper. He comes by EMS, EMS was called because patient did not feel good for the past 2 hours, they found that he was hypoglycemic in the 30s, he was given a sandwich, orange juice , this was rechecked and it was in the 50s, he was given another orange juice, this was rechecked and it was in the 40s, after this he was given D10 300 ml and oral glucose and it came up only into the 60s. Patient states he took 20 units of NovoLog prior to eating dinner but he states this is normal for him, he also takes Lantus 80u at 10pm, but did not take it last night. He denies oral diabetic medications. He denies chest pain, fever, he does report that he has had a worsening cough over the past few days but denies symptoms otherwise. Past medical history of chronic afib, prostate cancer with bone metastases, currently on chemotherapy with Dr. Canales. Denies any similar episode in the past Patient was placed on D5 NS in the emergency department and his last blood sugar was around 100. Past Medical History Cardiac Medical History: Reports: Atrial Fibrillation - Chronic atrial fibrillation, Congestive Heart Failure, Coronary Artery Disease, Myocardial Infarction, Hypertension Denies: Hyperlipidema Pulmonary Medical History: Reports: Chronic Obstructive Pulmonary Disease (COPD) Denies: Asthma, Bronchitis, Pneumonia Neurological Medical History: Denies: Seizures Endocrine Medical History: Reports: Diabetes Mellitus Type 1, Hyperthyroidism Malignancy Medical History: Reports: Bone Cancer, Other - Prostate cancer with bone metastasis GI Medical History: Denies: Hepatitis, Hiatal Hernia Musculoskeltal Medical History: Reports: Arthritis Psychiatric Medical History: Reports: Depression Hematology: Denies: Anemia, Sickle Cell Disease Past Surgical History Past Surgical History: Reports: Cholecystectomy, Other - Port-A-Cath placement Denies: Pacemaker Social History Information Source: Patient Smoking Status: Former Smoker Frequency of Alcohol Use: None Hx Recreational Drug Use: No Hx Prescription Drug Abuse: No Family History Family History: CAD, DM Parental Family History Reviewed: No Children Family History Reviewed: NA Sibling(s) Family History Reviewed.: NA Medication/Allergy Home Medications: Aspirin [Aspirin EC] 81 mg PO DAILY 07/01/16 Calcium Carbonate/Vitamin D3 [Calcium 500-Vit D3 200 Tablet] 1 each PO DAILY Enzalutamide [Xtandi] 160 mg PO DAILY 07/01/16 Ergocalciferol (Vitamin D2) [Vitamin D2] 50,000 units PO TU@1000 07/01/16 Fluticasone/Salmeterol [Advair 250-50 Diskus 14 Dose/Diskus] 1 puff IH DAILY Insulin Aspart [Novolog Flexpen] 20 units SQ TID 07/01/16 Insulin Glargine,Hum.rec.anlog [Lantus Solostar] 80 units SQ QHS 07/01/16 Levothyroxine Sodium [Synthroid 0.15 mg Tablet] 0.15 mg PO QAM 07/01/16 Metformin HCl [Metformin HCl ER] 1,000 mg PO BID 07/01/16 Metoprolol Tartrate [Lopressor 25 mg Tablet] 25 mg PO Q12 07/01/16 Nitroglycerin [Nitromist] 1 spray SL Q5MP PRN 07/01/16 Prednisone [Deltasone 5 mg Tablet] 5 mg PO BID 07/01/16 Rosuvastatin Calcium [Crestor 5 mg Tablet] 5 mg PO QHS 07/01/16 Tolterodine Tartrate [Detrol LA] 2 mg PO DAILY 07/01/16 Warfarin Sodium [Coumadin 5 mg Tablet] 7.5 mg PO ASDIR PRN 07/01/16 Warfarin Sodium [Coumadin] 10 mg PO MOWE@1000 07/01/16 Furosemide [Lasix 40 mg Tablet] 40 mg PO DAILY #30 tablet 07/04/16 Lisinopril [Prinivil 10 mg Tablet] 10 mg PO DAILY #30 tablet 07/04/16 Allergies/Adverse Reactions: Penicillins Allergy (Mild, Verified 01/27/18 23:24) Rash Review of Systems Review of Systems: As outlined in the HPI, others negative Physical Exam Vital Signs: Temp Pulse Resp BP Pulse Ox 97.6 F 20 127/75 H 100 01/27/18 22:33 01/27/18 23:01 01/27/18 23:01 01/27/18 23:01 Additional comments: General appearance: Obese, alert and cooperative, and appears to be in no acute distress Head: Normocephalic Eyes: PEERL, EOMI, vision is grossly intact. Ears: External auditory canal and tympanic membranes clear, hearing grossly intact. Nose: No nasal discharge. Throat: Oral cavity and pharynx normal. No inflammation, swelling, exudate or lesions. Neck: Neck supple, nontender without lymphadenopathy, masses or thyromegaly. Cardiac: Normal S1 and S2. No S3, S4 or murmurs. Rhythm is irregular mild tachycardic. There is 3+ peripheral edema. Extremities are warm and well perfused. Capillary refill is less than 2 seconds. No carotid bruits. Lungs: Bilateral decreased breath sounds with bibasilar crackles, no wheezing or rhonchi. Not using accessory muscles. Abdomen: Positive bowel sounds. Soft. Nondistended, nontender. No guarding or rebound. No masses. Extremities: No significant deformity or joint abnormality. Peripheral pulses intact. No varicosities. Neurological: Cranial nerves II through XII grossly intact. Strength and sensation symmetric and intact throughout. Reflexes 2+ throughout. Skin: Skin pale, normal texture and turgor with no lesions or eruptions, warm and dry. Psychiatric: The mental examination revealed the patient was oriented to person , place, and time. The patient was able to demonstrate good judgment on recent , without hallucinations, abnormal affect or abnormal behaviors. Results Laboratory Results: 01/27/18 01/27/18 01/27/18 22:45 22:45 22:45 WBC 8.3 RBC 3.79 L Hgb 10.2 L Hct 31.1 L MCV 82 MCH 27.0 MCHC 32.9 RDW 21.2 H Plt Count 191 Seg Neuts % (Manual) 92 H Lymphocytes % (Manual) 7 L Monocytes % (Manual) 1 L Eosinophils % (Manual) 0 Basophils % (Manual) 0 Abs Neuts (Manual) 7.6 Abs Lymphs (Manual) 0.6 Abs Monocytes (Manual) 0.1 Toxic Granulation SLIGHT Toxic Vacuolation Not Reportable Platelet Comment ADEQUATE Poikilocytosis SLIGHT Anisocytosis 3+ Tear Drop Cells SLIGHT Ovalocytes SLIGHT [place] Cells SLIGHT Sodium 138.3 Potassium 3.4 L Chloride 103 Carbon Dioxide 24 Anion Gap 11 BUN 23 H Creatinine 0.72 Est GFR ( Amer) > 60 Est GFR (Non-Af Amer) > 60 Glucose 297 H POC Glucose Calcium 8.4 Troponin I 0.018 01/27/18 01/28/18 23:05 00:21 WBC RBC Hgb Hct MCV MCH MCHC RDW Plt Count Seg Neuts % (Manual) Lymphocytes % (Manual) Monocytes % (Manual) Eosinophils % (Manual) Basophils % (Manual) Abs Neuts (Manual) Abs Lymphs (Manual) Abs Monocytes (Manual) Toxic Granulation Toxic Vacuolation Platelet Comment Poikilocytosis Anisocytosis Tear Drop Cells Ovalocytes Caryl Cells Sodium Potassium Chloride Carbon Dioxide Anion Gap BUN Creatinine Est GFR ( Amer) Est GFR (Non-Af Amer) Glucose POC Glucose 94 100 Calcium Troponin I EKG Comments: Atrial fibrillation with a rate of 80 bpm, RBBB Assessment & Plan - Diagnosis (1) Hypoglycemia Is this a current diagnosis for this admission?: Yes Plan: Patient comes with persistent hypoglycemia after supper, had 20 mg of NovoLog as usual, renal function is normal, denies similar episodes in the past, so far no focus of infection. Currently on D5NS maintaining a blood sugar of 100 mg/ dL. Insulin is on hold. Accu-Cheks q. one hour. Hypoglycemia protocol. Chest x-ray review, place order for urinalysis, urine culture and blood culture. (2) Chronic atrial fibrillation Is this a current diagnosis for this admission?: Yes Plan: Patient is on chronic atrial fibrillation, rate control, on Coumadin at home, we will send the INR (3) Chronic respiratory failure with hypoxia, on home O2 therapy Is this a current diagnosis for this admission?: Yes Plan: Chronicrespiratory failure on 2 L oxygen at home (4) Acute on chronic systolic CHF (congestive heart failure) Is this a current diagnosis for this admission?: Yes Plan: complains of mild cough for the last 2 weeks with on and off pinkish sputum. Worsening shortness of breath and lower extremities edema. I will give him 40 mg of IV Lasix, sent BMP. Patient has to be reevaluated to to keep him on IV Lasix to improve acute on chronic systolic CHF at place patient on core measures. Chest x-ray with bilateral pleural effusions, similar to before. (5) Prostate cancer metastatic to bone Is this a current diagnosis for this admission?: Yes Plan: Prostate cancer with metastasis to the bones, currently on chemotherapy, last, last . Follows with Dr. Dominguez Port-A-Cath in place, no signs of infection - Time Time Spent: 30 to 50 Minutes
[2018-01-28] MEDS ORDERED: FUROSEMIDE INJ/PF 40 MG/4 ML SDV IV ONE (02:15)
[2018-01-28] MEDS: DEXTROSE 5%-1/2 NORMAL SALINE 1,000 ML IV PRN ×2 (07:09→15:37)
--- NOTE | 2018-01-28 08:02 | EKG REPORT ---
SEVERITY:- ABNORMAL ECG - ATRIAL FIBRILLATION VENTRICULAR PREMATURE COMPLEX RIGHT BUNDLE BRANCH BLOCK : Confirmed by: Nickolas Hernández MD 28-Jan-2018 08:02:31
[2018-01-28] MEDS: FUROSEMIDE INJ/PF 40 MG/4 ML SDV IV SCH ×2 (09:52→23:16)
--- NOTE | 2018-01-28 19:20 | PDOC DISCHARGE SUMMARY ---
General - Admit/Disc Date/PCP Admission Date/Primary Care Provider: 01/28/18 01:09 CARLEY JOHNSON MD Discharge Date: 01/28/18 - Discharge Diagnosis (1) Hypoglycemia Is this a current diagnosis for this admission?: Yes (2) Prostate cancer metastatic to bone Is this a current diagnosis for this admission?: Yes (3) Chronic atrial fibrillation Is this a current diagnosis for this admission?: Yes - Additional Information Resuscitation Status: Full Code Discharge Diet: As Tolerated Discharge Activity: Activity As Tolerated Home Medications: Aspirin [Aspirin EC] 81 mg PO DAILY 07/01/16 Calcium Carbonate/Vitamin D3 [Calcium 500-Vit D3 200 Tablet] 1 each PO DAILY Ergocalciferol (Vitamin D2) [Vitamin D2] 50,000 units PO WE@1000 07/01/16 Fluticasone/Salmeterol [Advair 250-50 Diskus 14 Dose/Diskus] 1 puff IH DAILY Metoprolol Tartrate [Lopressor 25 mg Tablet] 25 mg PO DAILY 07/01/16 Nitroglycerin [Nitromist] 1 spray SL Q5MP PRN 07/01/16 Rosuvastatin Calcium [Crestor 5 mg Tablet] 5 mg PO QHS 07/01/16 Warfarin Sodium [Coumadin 5 mg Tablet] 7.5 mg PO SUTUTHSA@1000 07/01/16 Warfarin Sodium [Coumadin] 10 mg PO MOWEFR@1000 07/01/16 Albuterol Sulfate [Proair HFA] 2 puff IN Q4HP PRN 01/28/18 Furosemide [Lasix 20 mg Tablet] 20 mg PO DAILY 01/28/18 Levothyroxine Sodium [Synthroid] 200 mcg PO DAILY 01/28/18 Omeprazole 20 mg PO DAILY 01/28/18 Tolterodine Tartrate [Tolterodine Tartrate ER] 4 mg PO DAILY 01/28/18 History of Present Illness History of Present Illness: MAGALIE ABAD is a 77 year old male that comes emergency department for chief complaint of not feeling well and hypoglycemia after supper. He comes by EMS, EMS was called because patient did not feel good for the past 2 hours, they found that he was hypoglycemic in the 30s, he was given a sandwich, orange juice , this was rechecked and it was in the 50s, he was given another orange juice, this was rechecked and it was in the 40s, after this he was given D10 300 ml and oral glucose and it came up only into the 60s. Patient states he took 20 units of NovoLog prior to eating dinner but he states this is normal for him, he also takes Lantus 80u at 10pm, but did not take it last night. He denies oral diabetic medications. He denies chest pain, fever, he does report that he has had a worsening cough over the past few days but denies symptoms otherwise. Past medical history of chronic afib, prostate cancer with bone metastases, currently on chemotherapy with Dr. Canales. Denies any similar episode in the past Patient was placed on D5 NS in the emergency department and his last blood sugar was around 100. Hospital Course Hospital Course: The patient was admitted for observation. Insulin was DC'd. We started him on D5 saline. We monitored his glucose levels every hour. He continued to be stable and asymptomatic. We stopped the D5 drip and continue to monitor his glucose levels and continue to be stable. Apparently he recently received chemo and had poor appetite and did not eat or drink as he normally does and his daughter told him to take 20 units instead of 10 of NovoLog. I looked at his records from the past and his A1c was all was below 7. Last time was 2017 was 6.8. He is currently stable and asymptomatic and blood glucose is stable. He can be discharged and recommended to stop long-acting insulin and pre-meal short-acting insulin. He can take insulin per sliding scale like he used to do before. We advised him to continue to monitor his blood glucose. His brother is with him and he will be watching over him. He definitely needs to follow-up with his primary care physician to adjust insulin dosage if need be. Physical Exam Vital Signs: Temp Pulse Resp BP Pulse Ox 97.7 F 84 21 H 127/68 H 98 01/28/18 04:42 01/28/18 18:30 01/28/18 18:31 01/28/18 18:31 01/28/18 18:30 Intake & Output 01/27/18 01/28/18 01/29/18 06:59 06:59 06:59 Intake Total 1000 1750 Output Total 1375 2125 Balance -375 -375 General appearance: PRESENT: no acute distress, cooperative Head exam: PRESENT: atraumatic, normocephalic Eye exam: ABSENT: conjunctival injection Ear exam: ABSENT: bleeding, drainage Mouth exam: PRESENT: moist Throat exam: ABSENT: post pharyngeal erythema Neck exam: ABSENT: meningismus, tenderness, thyromegaly Respiratory exam: PRESENT: clear to auscultation carmelo. ABSENT: accessory muscle use Pulses: PRESENT: normal radial pulses GI/Abdominal exam: PRESENT: normal bowel sounds, soft. ABSENT: distended, tenderness Extremities exam: PRESENT: pedal edema - Chronic Neurological exam: PRESENT: alert, altered, awake, oriented to person, oriented to place, oriented to time, oriented to situation Psychiatric exam: PRESENT: appropriate affect. ABSENT: agitated, anxious, depressed, homicidal ideation, suicidal ideation Results Laboratory Results: 01/28/18 01:24 Urine Color YELLOW Urine Appearance CLEAR Urine pH 5.0 Ur Specific Branch 1.013 Urine Protein 30 H Urine Glucose (UA) NEGATIVE Urine Ketones NEGATIVE Urine Blood NEGATIVE Urine Nitrite NEGATIVE Ur Leukocyte Esterase NEGATIVE Urine WBC (Auto) 1 Urine RBC (Auto) 1 Qualifiers - * PATIENT BEING DISCHARGED WITH ANY OF THE FOLLOWING DIAGNOSIS: No
[2018-01-29] MEDS: DEXTROSE 5%-1/2 NORMAL SALINE 1,000 ML IV PRN (00:21)
[2018-01-29 05:15] LABS: ABSOLUTE LYMPHOCYTES (AUTO) 0.5 10^3/uL (0.5-4.7); ABSOLUTE MONOCYTES (AUTO) 0.1 10^3/uL (0.1-1.4); ABSOLUTE NEUT (AUTO) 4.8 10^3/uL (1.7-8.2); BASOPHILS % (AUTO) 0.9 % (0-2); EOSINOPHILS % (AUTO) 0.3 % (0-6); HEMATOCRIT 28.8 % (37.9-51.0); HEMOGLOBIN 9.5 g/dL (13.5-17.0); LYMPHOCYTES % (AUTO) 9.6 % (13-45); MEAN CORPUSCULAR HEMOGLOBIN 26.7 pg (27.0-33.4); MEAN CORPUSCULAR HGB CONC 33.1 g/dL (32.0-36.0); MEAN CORPUSCULAR VOLUME 81 fl (80-97); MONOCYTES % (AUTO) 2.6 % (3-13); PLATELET COUNT 173 10^3/uL (150-450); RED BLOOD COUNT 3.57 10^6/uL (4.35-5.55); RED CELL DISTRIBUTION WIDTH 21.3 % (11.5-14.0); SEGMENTED NEUTROPHILS % (AUTO) 86.6 % (42-78); TOTAL CELLS COUNTED % (AUTO) 100 %; WHITE BLOOD COUNT 5.5 10^3/uL (4.0-10.5)
[2018-01-29 05:36] LABS: ANION GAP 10 (5-19); BLOOD UREA NITROGEN 21 mg/dL (7-20); CALCIUM 8.1 mg/dL (8.4-10.2); CARBON DIOXIDE 28 mmol/L (22-30); CHLORIDE 102 mmol/L (98-107); GLUCOSE 112 mg/dL (75-110); POTASSIUM 3.2 mmol/L (3.6-5.0); SODIUM 139.5 mmol/L (137-145)
[2018-01-29] MEDS ORDERED: POTASSIUM CHLORIDE 10 MEQ CAPSULE.ER PO ONE (09:00)
[2018-01-29] MEDS: FUROSEMIDE INJ/PF 40 MG/4 ML SDV IV SCH (09:32)
[2018-01-29 10:01] VITALS: BP 124/66
== END 2018-01-29 10:33 | disposition home or self-care (01) ==
LOC: ER 22:27 → EH 01-28 01:09 → 3W 01-28 19:16
PROVIDERS: ADMIT Internal Medicine; ATTEND Internal Medicine
DX: E10.649 Type 1 diabetes mellitus with hypoglycemia without coma (principal); C61 Malignant neoplasm of prostate; C79.51 Secondary malignant neoplasm of bone; I48.2 Chronic atrial fibrillation; R05 Cough; I11.0 Hypertensive heart disease with heart failure; I50.23 Acute on chronic systolic (congestive) heart failure; R00.0 Tachycardia, unspecified; J96.11 Chronic respiratory failure with hypoxia; R63.0 Anorexia; E66.9 Obesity, unspecified; E05.90 Thyrotoxicosis, unspecified without thyrotoxic crisis or storm; I25.10 Atherosclerotic heart disease of native coronary artery without angina pectoris; J44.9 Chronic obstructive pulmonary disease, unspecified; Z99.81 Dependence on supplemental oxygen; I25.2 Old myocardial infarction; Z68.30 Body mass index [BMI] 30.0-30.9, adult; Z79.82 Long term (current) use of aspirin; Z79.899 Other long term (current) drug therapy; Z79.01 Long term (current) use of anticoagulants; Z79.4 Long term (current) use of insulin; Z90.49 Acquired absence of other specified parts of digestive tract; Z95.828 Presence of other vascular implants and grafts
CPT/HCPCS: 93005; 99285; 96361; 96374; 36415 ×2; 87040; 87086; 82962 ×3; 85025 ×2; 85610; 80048 ×2; 81001; 84484; 83880; 71045; 93010; G0378 ×3; J3490; J1940 ×2; A9270 ×2; J7070

== ENCOUNTER → 2018-03-15 | Outpatient (CLI) | payer MEDICARE, OTHER ==
--- NOTE | 2018-03-15 10:42 | RADIOLOGY REPORT (SQ) ---
EXAM DESCRIPTION: CT CHEST WITH; CT ABD/PELVIS WITH IV ORAL COMPLETED DATE/TIME: 03/15/2018 10:03 am REASON FOR STUDY: PROSTATE CANCER, BONE CANCER C61 MALIGNANT NEOPLASM OF PROSTATE C79.51 SECONDARY MALIGNANT NEOPLASM OF BONE COMPARISON: CT chest abdomen pelvis 12/21/2017, 01/15/2017, 09/28/2016, 04/20/2016 CT pelvis 09/23/2017 Bone scan 01/19/2017 CONTRAST TYPE AND DOSE: contrast/concentration: Isovue 350.00 mg/ml; Total Contrast Delivered: 98.0 ml; Total Saline Delivered: 72.0 ml RENAL FUNCTION: Creatinine 1.0 TECHNIQUE: CT scan of the chest performed using helical scanning technique with dynamic intravenous contrast injection. Images reviewed with lung, soft tissue and bone windows. Reconstructed coronal a nd sagittal MPR images reviewed. All images stored on PACS. CT scan of the abdomen and pelvis performed with intravenous and with oral contrastusing helical scan grace technique with dynamic intravenous contrast injection. Images reviewed with lung, soft tissue a nd bone windows. Reconstructed coronal and sagittal MPR images reviewed. Delayed images for evaluat ion of the urinary system also acquired and evaluated. All images stored on PACS. All CT scanners at this facility use dose modulation, iterative reconstruction, and/or weight based d osing when appropriate to reduce radiation dose to as low as reasonably achievable (ALARA). [facility]: Dose Right [facility]: CareDose [facility]: Dose Right [facility]: Teradose 4D [facility]: [employer] RADIATION DOSE: CT Rad equipment meets quality standard of care and radiation dose reduction techniq ues were employed. CTDIvol: 7.4 - 8.7 mGy. DLP: 1318 mGy-cm. . LIMITATIONS: None. FINDINGS: CHEST: LUNGS AND PLEURA: Obstructive lung disease is present in the upper lobes bilaterally. Moderate bilat eral pleural effusions are present, of increased compared to 12/21/2017. On today's study there is pa tchy left basilar airspace disease adjacent to the effusion, atelectasis versus pneumonia. Airways a re patent. HILAR AND MEDIASTINAL STRUCTURES: No identified masses or abnormal nodes. HEART AND VASCULAR STRUCTURES: No aneurysm or dissection. No central pulmonary emboli. No pericardi al effusion. Heavily calcified aortic valve and coronary arteries HARDWARE: Right permanent central line tip superior vena cava THYROID AND OTHER SOFT TISSUES: No masses. No adenopathy. BONES: Multiple metastatic lesions to ribs, T2, T3, T7, T8 similar compared to 12/21/2017 OTHER: No other significant finding. ABDOMEN AND PELVIS: LIVER: Normal size. No masses. 2 cm cyst left lobe liver unchanged. No dilated ducts. SPLEEN: Normal size. No focal lesions. PANCREAS: No masses. No significant calcifications. No adjacent inflammation or peripancreatic fluid collections. Pancreatic duct not dilated. GALLBLADDER: Surgically absent ADRENAL GLANDS: No significant masses or asymmetry. RIGHT KIDNEY AND URETER: No solid masses. No significant calcification. No hydronephrosis or hydroure ter. LEFT KIDNEY AND URETER: No solid masses. 1 cm left upper pole renal cortical cyst, 2 cm left lower p ole parapelvic cyst. Left lower pole intrarenal nonobstructive 5 mm stone. No hydronephrosis or hydr oureter. AORTA AND VESSELS: No aneurysm. No dissection. Renal arteries, SMA, celiac without stenosis. RETROPERITONEUM: Left retroperitoneal lymph node at the left renal artery and vein 3.4 x 3.1 cm axial image 42 (was 4 x 3.8 cm on 12/21/2017). BOWEL AND PERITONEAL CAVITY: Patient drank oral contrast. No CT evidence of bowel obstruction. No f ree intraperitoneal air or fluid. Colonic diverticulosis without CT signs of acute diverticulitis APPENDIX: Normal. ABDOMINAL WALL: No masses. No hernias. PELVIS: Post prostatectomy. Bladder unremarkable. Calcified nodule right seminal vesicle 2.6 x 1.8 cm (was 2.7 x 2 cm 12/21/2017) BONES: Stable bony metastatic disease to the L2-L3 and L4 vertebral bodies, sacrum, and bony pelvis OTHER: No other significant finding. IMPRESSION: Stable bony disease throughout the chest abdomen pelvis Stable left retroperitoneal lymph node at the level of the left renal artery and vein, stable calcifi ed nodule in the right seminal vesicle TECHNICAL DOCUMENTATION: JOB ID: [id number] Quality ID # [id number]: Final reports with documentation of one or more dose reduction techniques (e.g., Au tomated exposure control, adjustment of the mA and/or kV according to patient size, use of iterative reconstruction technique) 2010 [employer]- All Rights Reserved Reading location - IP/workstation name: [email or web address]
== END ==
LOC: RAD 08:51
PROVIDERS: ATTEND Internal Medicine Hematology & Oncology
DX: C61 Malignant neoplasm of prostate (principal); C79.51 Secondary malignant neoplasm of bone; J44.9 Chronic obstructive pulmonary disease, unspecified
CPT/HCPCS: 71260; 74177

== ENCOUNTER → 2018-03-19 | Outpatient (CLI) | payer MEDICARE, OTHER ==
--- NOTE | 2018-03-19 14:51 | RADIOLOGY REPORT (SQ) ---
EXAM DESCRIPTION: NM WHOLE BODY BONE SCAN COMPLETED DATE/TIME: 03/19/2018 2:34 pm REASON FOR STUDY: PROSTATE CA (C61), SECONDARY MALIGNANT NEOPLASM OF BONE (C79.51) C61 MALIGNANT NE OPLASM OF PROSTATE COMPARISON: Bone scan 12/24/2017 RADIONUCLIDE AND DOSE: 20 millicuries Tc99m HDP. The route of agent administration: Intravenous. ADDITIONAL DRUGS AND DOSES: None. TECHNIQUE: Routine delayed images at 3 hours post radionuclide injection acquired of the bony skelet on including anterior and posterior whole-body projections and additional focused images as needed. LIMITATIONS: None. FINDINGS: BONES: Extensive relatively stable metastatic disease in the spine and ribs. There appear s to be slightly decreased activity in the left sacrum compared to the earlier study. There appears to be a slight increase in activity in the lesser trochanter of the left hip. KIDNEYS: Symmetric excretion without obstruction. OTHER: No other significant finding. IMPRESSION: Metastatic disease to bone with changes as described. COMMENT: Quality measure 147: Current bone scan is compared with any available plain radiographs, p rior bone scans, and CT/MRI. TECHNICAL DOCUMENTATION: JOB ID: [id number] [employer]- All Rights Reserved Reading location - IP/workstation name: [email or web address]
== END ==
LOC: RAD 10:58
PROVIDERS: ATTEND Internal Medicine Hematology & Oncology
DX: C61 Malignant neoplasm of prostate (principal); C79.51 Secondary malignant neoplasm of bone
CPT/HCPCS: 78306; A9561; Q9969

== ENCOUNTER 2018-03-23 11:34 | Inpatient (IN) | payer MEDICARE, OTHER ==
[2018-03-23] MEDS ORDERED: NORMAL SALINE 500 ML IV ONE (12:01)
--- NOTE | 2018-03-23 12:02 | ER Document Report ---
ED General - General Chief Complaint: Leg Swelling Stated Complaint: FEET SWELLING Time Seen by Provider: 03/23/18 11:56 TRAVEL OUTSIDE OF THE [place] IN LAST 30 DAYS: No - HPI Notes: Patient with metastatic prostate cancer coming in for bilateral leg swelling shortness of breath. Decreased p.o. intake. - Related Data Allergies/Adverse Reactions: Penicillins Allergy (Mild, Verified 01/27/18 23:24) Rash Past Medical History - Social History Smoking Status: Never Smoker Chew tobacco use (# tins/day): No Frequency of alcohol use: None Drug Abuse: None Family History: CAD, DM Patient has suicidal ideation: No Patient has homicidal ideation: No - Past Medical History Cardiac Medical History: Reports: Hx Atrial Fibrillation - Chronic atrial fibrillation, Hx Congestive Heart Failure, Hx Coronary Artery Disease, Hx Heart Attack, Hx Hypertension Denies: Hx Hypercholesterolemia Pulmonary Medical History: Reports: Hx COPD Denies: Hx Asthma, Hx Bronchitis, Hx Pneumonia Neurological Medical History: Denies: Hx Cerebrovascular Accident, Hx Seizures Endocrine Medical History: Reports: Hx Diabetes Mellitus Type 1, Hx Hyperthyroidism Renal/ Medical History: Denies: Hx Peritoneal Dialysis Malignancy Medical History: Reports Hx Bone Cancer GI Medical History: Denies: Hx Hepatitis, Hx Hiatal Hernia, Hx Ulcer Musculoskeletal Medical History: Reports Hx Arthritis Psychiatric Medical History: Denies: Hx Depression Infectious Medical History: Denies: Hx Hepatitis Past Surgical History: Reports: Hx Cholecystectomy, Hx Open Heart Surgery - ANGIOPLASTY 1993,1999, Hx Thyroid Surgery, Other - Port-A-Cath placement. Denies: Hx Pacemaker - Immunizations Hx Diphtheria, Pertussis, Tetanus Vaccination: Yes Hx Pneumococcal Vaccination: 06/04/11 Review of Systems - Review of Systems Cardiovascular: Edema Respiratory: Short of breath Physical Exam - Vital signs Vitals: Temp Pulse Resp BP Pulse Ox 97.8 F 88 24 H 99/65 L 93 03/23/18 11:44 03/23/18 11:44 03/23/18 11:44 03/23/18 11:44 03/23/18 11:44 - General General appearance: Appears well In distress: None - Cardiovascular Rhythm: Regular Heart sounds: Normal auscultation Course - Vital Signs Vital signs: Temp Pulse Resp BP Pulse Ox 97.8 F 88 24 H 99/65 L 93 03/23/18 11:44 03/23/18 11:44 03/23/18 11:44 03/23/18 11:44 03/23/18 11:44 Discharge - Discharge Referrals: BRADY WALKER MD [Primary Care Provider] - Follow up as needed
--- NOTE | 2018-03-23 12:41 | ER Document Report ---
ED General - General Chief Complaint: Leg Swelling Stated Complaint: FEET SWELLING Time Seen by Provider: 03/23/18 11:56 Mode of Arrival: Ambulatory Information source: Patient, Relative, [facility] Records Notes: 77-year-old male with congestive heart failure, coronary artery disease, hyperlipidemia, atrial fibrillation, COPD, type 1 diabetes, metastatic bone cancer presents via private vehicle with complaint of lower extremity swelling left greater than right and increased shortness of breath. Son is at the bedside and states that approximately 1 month prior to arrival the patient was admitted to a hospital in [place] for pneumonia. He reports that the patient got better but over the last few days he has become weaker unable to ambulate with decreased appetite, a dry cough. Today patient states that at 1 AM approximately 12 hours ago he awoke with chest pressure that is not currently present. Patient denies prior history of PE, DVT. He is currently on Coumadin. TRAVEL OUTSIDE OF THE [place] IN LAST 30 DAYS: No - HPI Onset: Other Onset/Duration: Gradual, Persistent Quality of pain: Pressure Associated symptoms: Chest pain, Nonproductive cough, Leg swelling, Nausea, Shortness of breath, Weakness. denies: Fever Exacerbated by: Movement, Walking Relieved by: Denies Similar symptoms previously: Yes Recently seen / treated by doctor: Yes - Related Data Allergies/Adverse Reactions: Penicillins Allergy (Mild, Verified 03/23/18 12:02) Rash Past Medical History - General Information source: Patient, [facility] Records - Social History Smoking Status: Never Smoker Chew tobacco use (# tins/day): No Frequency of alcohol use: None Drug Abuse: None Lives with: Alone Family History: CAD, DM Patient has suicidal ideation: No Patient has homicidal ideation: No - Past Medical History Cardiac Medical History: Reports: Hx Atrial Fibrillation - Chronic atrial fibrillation, Hx Congestive Heart Failure, Hx Coronary Artery Disease, Hx Heart Attack, Hx Hypertension Denies: Hx Hypercholesterolemia Pulmonary Medical History: Reports: Hx COPD Denies: Hx Asthma, Hx Bronchitis, Hx Pneumonia Neurological Medical History: Denies: Hx Cerebrovascular Accident, Hx Seizures Endocrine Medical History: Reports: Hx Diabetes Mellitus Type 1, Hx Hyperthyroidism Renal/ Medical History: Denies: Hx Peritoneal Dialysis Malignancy Medical History: Reports Hx Bone Cancer GI Medical History: Denies: Hx Hepatitis, Hx Hiatal Hernia, Hx Ulcer Musculoskeletal Medical History: Reports Hx Arthritis Psychiatric Medical History: Denies: Hx Depression Infectious Medical History: Denies: Hx Hepatitis Past Surgical History: Reports: Hx Cholecystectomy, Hx Open Heart Surgery - ANGIOPLASTY 1993,1999, Hx Thyroid Surgery, Hx Urinary Tract Surgery - prostate, Other - Port-A-Cath placement. Denies: Hx Pacemaker - Immunizations Hx Diphtheria, Pertussis, Tetanus Vaccination: Yes Hx Pneumococcal Vaccination: 06/04/11 Review of Systems - Review of Systems Constitutional: Malaise, Weakness, Recent illness EENT: denies: Blurred vision Cardiovascular: Chest pain Respiratory: Short of breath Gastrointestinal: Nausea. denies: Abdominal pain, Vomiting Genitourinary: denies: Dysuria, Flank pain Musculoskeletal: denies: Back pain Skin: denies: Rash Hematologic/Lymphatic: denies: Swollen glands Neurological/Psychological: Weakness. denies: Headaches -: Yes All other systems reviewed and negative Physical Exam - Vital signs Vitals: Temp Pulse Resp BP Pulse Ox 97.8 F 88 24 H 99/65 L 93 03/23/18 11:44 03/23/18 11:44 03/23/18 11:44 03/23/18 11:44 03/23/18 11:44 Interpretation: Hypotensive - Notes Notes: PHYSICAL EXAMINATION: GENERAL: Ill-appearing, no distress HEAD: Atraumatic, normocephalic. EYES: Pupils equal round and reactive to light, extraocular movements intact, sclera anicteric, conjunctiva are normal. ENT: Nares patent, oropharynx clear without exudates. Moist mucous membranes. NECK: Normal range of motion, supple without lymphadenopathy LUNGS: Diminished bilaterally and equal. No wheezes rales or rhonchi. HEART: Regular rate and rhythm with murmurs ABDOMEN: Soft, nontender, nondistended abdomen. No guarding, no rebound. No masses appreciated. Musculoskeletal: Normal range of motion, 2+ pitting edema. Left greater than right. No calf tenderness. No cyanosis. NEUROLOGICAL: Cranial nerves grossly intact. Normal speech, normal gait. Normal sensory, motor exams PSYCH: Somnolent but AOx3 SKIN: Warm, Dry, normal turgor, no rashes or lesions noted. Course - Re-evaluation Re-evalutation: Laboratory 03/23/18 03/23/18 03/23/18 12:35 12:35 12:35 WBC 8.7 RBC 3.86 L Hgb 9.9 L Hct 30.5 L MCV 79 L MCH 25.7 L MCHC 32.6 RDW 22.8 H Plt Count 289 Seg Neutrophils % 80.9 H Lymphocytes % 9.2 L Monocytes % 9.2 Eosinophils % 0.1 Basophils % 0.6 Absolute Neutrophils 7.0 Absolute Lymphocytes 0.8 Absolute Monocytes 0.8 Absolute Eosinophils 0.0 Absolute Basophils 0.0 PT 24.2 H INR 2.06 VBG pH VBG pCO2 VBG HCO3 VBG Base Excess Sodium 138.3 Potassium 4.0 Chloride 101 Carbon Dioxide 24 Anion Gap 13 BUN 23 H Creatinine 1.02 Est GFR ( Amer) > 60 Est GFR (Non-Af Amer) > 60 Glucose 142 H POC Glucose Lactic Acid Calcium 7.9 L Total Bilirubin 0.7 Direct Bilirubin 0.3 Neonat Total Bilirubin Not Reportable Neonat Direct Bilirubin Not Reportable Neonat Indirect Bili Not Reportable AST 24 ALT 28 Alkaline Phosphatase 76 NT-Pro-B Natriuret Pep Total Protein 6.0 L Albumin 3.3 L Urine Color Urine Appearance Urine pH Ur Specific [place] Urine Protein Urine Glucose (UA) Urine Ketones Urine Blood Urine Nitrite Urine Bilirubin Urine Urobilinogen Ur Leukocyte Esterase Urine WBC (Auto) Squamous Epi Cells Auto Urine Mucus (Auto) Urine Ascorbic Acid 03/23/18 03/23/18 03/23/18 12:35 12:35 12:35 WBC RBC Hgb Hct MCV MCH MCHC RDW Plt Count Seg Neutrophils % Lymphocytes % Monocytes % Eosinophils % Basophils % Absolute Neutrophils Absolute Lymphocytes Absolute Monocytes Absolute Eosinophils Absolute Basophils PT INR VBG pH 7.39 VBG pCO2 43.1 VBG HCO3 25.7 VBG Base Excess 0.5 Sodium Potassium Chloride Carbon Dioxide Anion Gap BUN Creatinine Est GFR ( Amer) Est GFR (Non-Af Amer) Glucose POC Glucose Lactic Acid 1.7 Calcium Total Bilirubin Direct Bilirubin Neonat Total Bilirubin Neonat Direct Bilirubin Neonat Indirect Bili AST ALT Alkaline Phosphatase NT-Pro-B Natriuret Pep 05047 H Total Protein Albumin Urine Color Urine Appearance Urine pH Ur Specific [place] Urine Protein Urine Glucose (UA) Urine Ketones Urine Blood Urine Nitrite Urine Bilirubin Urine Urobilinogen Ur Leukocyte Esterase Urine WBC (Auto) Squamous Epi Cells Auto Urine Mucus (Auto) Urine Ascorbic Acid 03/23/18 03/23/18 13:47 14:12 WBC RBC Hgb Hct MCV MCH MCHC RDW Plt Count Seg Neutrophils % Lymphocytes % Monocytes % Eosinophils % Basophils % Absolute Neutrophils Absolute Lymphocytes Absolute Monocytes Absolute Eosinophils Absolute Basophils PT INR VBG pH VBG pCO2 VBG HCO3 VBG Base Excess Sodium Potassium Chloride Carbon Dioxide Anion Gap BUN Creatinine Est GFR ( Amer) Est GFR (Non-Af Amer) Glucose POC Glucose 113 H Lactic Acid Calcium Total Bilirubin Direct Bilirubin Neonat Total Bilirubin Neonat Direct Bilirubin Neonat Indirect Bili AST ALT Alkaline Phosphatase NT-Pro-B Natriuret Pep Total Protein Albumin Urine Color STRAW Urine Appearance CLEAR Urine pH 5.0 Ur Specific [place] 1.016 Urine Protein NEGATIVE Urine Glucose (UA) NEGATIVE Urine Ketones NEGATIVE Urine Blood NEGATIVE Urine Nitrite NEGATIVE Urine Bilirubin NEGATIVE Urine Urobilinogen NEGATIVE Ur Leukocyte Esterase NEGATIVE Urine WBC (Auto) 1 Squamous Epi Cells Auto <1 Urine Mucus (Auto) RARE Urine Ascorbic Acid NEGATIVE Chest X-Ray 03/23/18 12:00 IMPRESSION: Left lower lobe consolidation with bilateral pleural effusions. In the appropriate clinical setting, findings may represent pneumonia. Neoplastic process may have a similar appearance. Venous Doppler Study 03/23/18 12:32 IMPRESSION: NO EVIDENCE OF DVT OR SVT IN THE LEFT LEG. Chest/Abdomen CTA 03/23/18 12:44 IMPRESSION: Interval increase in bilateral pleural effusion volumes as well as increased left lower lobe dense consolidation. No discrete pulmonary emboli are visualized. Inhomogeneous opacification of the left main pulmonary artery and left lower lobe pulmonary arteries is favored to be on the basis of mixing artifact. 03/23/18 14:48 03/23/18 14:50 77-year-old male with congestive heart failure, coronary artery disease, hyperlipidemia, atrial fibrillation, COPD, type 1 diabetes, metastatic bone cancer presents via private vehicle with complaint of lower extremity swelling left greater than right and increased shortness of breath. Son is at the bedside and states that approximately 1 month prior to arrival the patient was admitted to a hospital in [place] for pneumonia. He reports that the patient got better but over the last few days he has become weaker unable to ambulate with decreased appetite, a dry cough. Today patient states that at 1 AM approximately 12 hours ago he awoke with chest pressure that is not currently present. Patient denies prior history of PE, DVT. He is currently on Coumadin. Vital signs reviewed upon arrival. Patient is initially hypotensive but responded to mild fluid resuscitation. He is afebrile but ill-appearing and pale. Patient has bilateral diminished breath sounds and bilateral lower extremity pitting edema. He is currently undergoing chemotherapy with Dr. Dominguez. Patient received IV Lasix, vancomycin, aztreonam during his ED course. Patient placed on BiPAP, [place] placed. CBC is without leukocytosis and does show a stable anemia. CMP, VBG unremarkable. Troponin negative, urinalysis not consistent with urinary tract infection. CTA of the chest was obtained and showed no evidence of pulmonary emboli but does show increased bilateral pleural effusion and left lower lobe consolidation. Venous Doppler was obtained and negative for DVT. Patient will be admitted to the IMCU by the hospitalist. Patient made us aware that the patient is a DNR. 03/23/18 20:12 - Vital Signs Vital signs: Temp Pulse Resp BP Pulse Ox 97.8 F 87 17 108/78 99 03/23/18 11:44 03/23/18 19:53 03/23/18 19:53 03/23/18 15:01 03/23/18 19:53 - Laboratory Result Diagrams: 03/23/18 12:35 03/23/18 12:35 Laboratory results interpreted by me: 03/23/18 03/23/18 03/23/18 12:35 12:35 12:35 RBC 3.86 L Hgb 9.9 L Hct 30.5 L MCV 79 L MCH 25.7 L RDW 22.8 H Seg Neutrophils % 80.9 H Lymphocytes % 9.2 L PT 24.2 H BUN 23 H Glucose 142 H POC Glucose Calcium 7.9 L NT-Pro-B Natriuret Pep Total Protein 6.0 L Albumin 3.3 L 03/23/18 03/23/18 12:35 13:47 RBC Hgb Hct MCV MCH RDW Seg Neutrophils % Lymphocytes % PT BUN Glucose POC Glucose 113 H Calcium NT-Pro-B Natriuret Pep 83259 H Total Protein Albumin - Diagnostic Test Radiology reviewed: Image reviewed, Reports reviewed - EKG Interpretation by Me Rate: Normal Rhythm: A.Fib When compared to previous EKG there are: No significant change Critical Care Note - Critical Care Note Total time excluding time spent on procedures (mins): 35 - Minutes of critical care time spent in direct contact evaluating and reevaluating the patient, treating symptoms, reviewing labs and studies and speaking with family and consultants excluding any procedures Discharge - Discharge Clinical Impression: Chronic respiratory failure with hypoxia, on home O2 therapy, Acute on chronic systolic CHF (congestive heart failure), Prostate cancer metastatic to bone, Pleural effusion, Hypoxia, Anticoagulated on Coumadin, Shortness of breath, Chronic atrial fibrillation, HCAP (healthcare-associated pneumonia) Condition: Good Disposition: ADMITTED INPATIENT Admitting Provider: Hospitalist Unit Admitted: [facility]
[2018-03-23 12:53] LABS: VENOUS BLOOD BASE EXCESS 0.5 mmol/L; VENOUS BLOOD HCO3 25.7 mmol/L (20-32); VENOUS BLOOD PCO2 43.1 mmHg (35-63); VENOUS BLOOD PH 7.39 (7.30-7.42)
[2018-03-23 12:59] LABS: ABSOLUTE LYMPHOCYTES (AUTO) 0.8 10^3/uL (0.5-4.7); ABSOLUTE MONOCYTES (AUTO) 0.8 10^3/uL (0.1-1.4); BASOPHILS % (AUTO) 0.6 % (0-2); EOSINOPHILS % (AUTO) 0.1 % (0-6); HEMATOCRIT 30.5 % (37.9-51.0); HEMOGLOBIN 9.9 g/dL (13.5-17.0); INTERNATIONAL RATION (INR) 2.06; LYMPHOCYTES % (AUTO) 9.2 % (13-45); MEAN CORPUSCULAR HEMOGLOBIN 25.7 pg (27.0-33.4); MEAN CORPUSCULAR HGB CONC 32.6 g/dL (32.0-36.0); MEAN CORPUSCULAR VOLUME 79 fl (80-97); MONOCYTES % (AUTO) 9.2 % (3-13); PLATELET COUNT 289 10^3/uL (150-450); PROTHROMBIN TIME 24.2 SEC (11.4-15.4); RED BLOOD COUNT 3.86 10^6/uL (4.35-5.55); RED CELL DISTRIBUTION WIDTH 22.8 % (11.5-14.0); SEGMENTED NEUTROPHILS % (AUTO) 80.9 % (42-78); TOTAL CELLS COUNTED % (AUTO) 100 %; WHITE BLOOD COUNT 8.7 10^3/uL (4.0-10.5)
--- NOTE | 2018-03-23 12:59 | EKG REPORT ---
SEVERITY:- ABNORMAL ECG - ATRIAL FIBRILLATION VENTRICULAR PREMATURE COMPLEX RIGHT BUNDLE BRANCH BLOCK OLD INFERIOR NV. : Confirmed by: Nickolas Hernández MD 23-Mar-2018 12:58:09
[2018-03-23 13:13] LABS: ALANINE AMINOTRANSFERASE 28 U/L (21-72); ALBUMIN 3.3 g/dL (3.5-5.0); ALKALINE PHOSPHATASE 76 U/L (38-126); ANION GAP 13 (5-19); ASPARTATE AMINO TRANSFERASE 24 U/L (17-59); BILIRUBIN,DIRECT 0.3 mg/dL (0.0-0.4); BILIRUBIN,TOTAL 0.7 mg/dL (0.2-1.3); BLOOD UREA NITROGEN 23 mg/dL (7-20); CALCIUM 7.9 mg/dL (8.4-10.2); CARBON DIOXIDE 24 mmol/L (22-30); CHLORIDE 101 mmol/L (98-107); GLUCOSE 142 mg/dL (75-110); SODIUM 138.3 mmol/L (137-145)
[2018-03-23] MEDS ORDERED: FUROSEMIDE INJ/PF 40 MG/4 ML SDV IV ONE (13:59)
--- NOTE | 2018-03-23 14:04 | RADIOLOGY REPORT (SQ) ---
EXAM DESCRIPTION: CTA CHEST COMPLETED DATE/TIME: 03/23/2018 1:12 pm REASON FOR STUDY: History of cancer, short of breath, leg swelling COMPARISON: Chest CT 03/15/2018 TECHNIQUE: CT scan of the chest performed using helical scanning technique with dynamic intravenous contrast injection. Images reviewed with lung, soft tissue and bone windows. Reconstructed coronal and sagittal MPR images reviewed. Additional 3 dimensional post-processing performed to develop Maximal Intensity Projection images (AR P). All images stored on PACS. All CT scanners at this facility use dose modulation, iterative reconstruction, and/or weight based d osing when appropriate to reduce radiation dose to as low as reasonably achievable (ALARA). [facility]: Dose Right [facility]: CareDose [facility]: Dose Right [facility]: Teradose 4D [facility]: [employer] CONTRAST TYPE AND DOSE: contrast/concentration: Isovue 350.00 mg/ml; Total Contrast Delivered: 73.0 ml; Total Saline Delivered: 110.0 ml Contrast bolus optimized for the pulmonary arteries. Not diagnostic for the aorta. RENAL FUNCTION: BUN 21; creatinine 0.79 RADIATION DOSE: CT Rad equipment meets quality standard of care and radiation dose reduction techniq ues were employed. CTDIvol: 18.0 - 59.5 mGy. DLP: 754 mGy-cm. . LIMITATIONS: None. FINDINGS: LUNGS AND PLEURA: Interval increase in volume of previously described bilateral layering p leural effusions. Likewise, increase in left lower lobe dense consolidation. Bilateral compressive atelectasis. Background of emphysematous changes. AORTA AND GREAT VESSELS: No aneurysm. Contrast bolus not optimized for the aorta. HEART: No pericardial effusion. Moderate to marked coronary artery calcifications. PULMONARY ARTERIES: No discrete emboli visualized in the main pulmonary arteries or the segmental bra nches. Inhomogeneous opacification of the left main and left lower lobe pulmonary arterial vasculatu re is favored to represent mixing artifact on the basis of relative resistance to flow. HILAR AND MEDIASTINAL STRUCTURES: No identified masses or abnormal nodes. HARDWARE: Right cervical central vascular access catheter. UPPER ABDOMEN: No acute findings. THYROID AND OTHER SOFT TISSUES: No masses. No adenopathy. BONES: Re- demonstration of multiple sclerotic foci throughout the thoracic spine and ribs. No new l esions. No fractures. 3D MIPS: Confirm above findings. OTHER: No other significant finding. IMPRESSION: Interval increase in bilateral pleural effusion volumes as well as increased left lower lobe dense consolidation. No discrete pulmonary emboli are visualized. Inhomogeneous opacification of the left main pulmonary artery and left lower lobe pulmonary arteries is favored to be on the basi s of mixing artifact. COMMENT: Quality ID # [id number]: Final reports with documentation of one or more dose reduction techniques (e.g., Automated exposure control, adjustment of the mA and/or kV according to patient size, use of iterative reconstruction technique) TECHNICAL DOCUMENTATION: JOB ID: [id number] [employer]- All Rights Reserved Reading location - IP/workstation name: [email or web address]
--- NOTE | 2018-03-23 14:06 | RADIOLOGY REPORT (SQ) ---
EXAM DESCRIPTION: CHEST 2 VIEWS COMPLETED DATE/TIME: 03/23/2018 1:15 pm REASON FOR STUDY: sob COMPARISON: 09/22/2017 EXAM PARAMETERS: NUMBER OF VIEWS: two views TECHNIQUE: Digital Frontal and Lateral radiographic views of the chest acquired. RADIATION DOSE: NA LIMITATIONS: none FINDINGS: LUNGS AND PLEURA: Bilateral (left greater than right) layering pleural effusions with left lower lobe consolidation. No pneumothorax. MEDIASTINUM AND HILAR STRUCTURES: No masses or contour abnormalities. HEART AND VASCULAR STRUCTURES: Heart normal size. No evidence for failure. BONES: No acute findings. HARDWARE: Right anterior chest wall Port-A-Cath. OTHER: No other significant finding. IMPRESSION: Left lower lobe consolidation with bilateral pleural effusions. In the appropriate clin ical setting, findings may represent pneumonia. Neoplastic process may have a similar appearance. TECHNICAL DOCUMENTATION: JOB ID: [id number] [employer]- All Rights Reserved Reading location - IP/workstation name: [email or web address]
--- NOTE | 2018-03-23 14:11 | RADIOLOGY REPORT (SQ) ---
EXAM DESCRIPTION: VENOUS UNILATERAL LOWER COMPLETED DATE/TIME: 03/23/2018 1:47 pm REASON FOR STUDY: pain left leg / COMPARISON: None. TECHNIQUE: Dynamic and static thornton scale and color images acquired of the left leg venous system. Se lected spectral images acquired with additional compression and augmentation maneuvers. The contralat eral common femoral vein and saphenofemoral junction were also imaged. Images stored on PACS. LIMITATIONS: None. FINDINGS: COMMON FEMORAL: Normal phasicity, compression and augmentation. No visualized echogenic ma terial on thornton scale. No defects on color images. FEMORAL: Normal compression and augmentation. No visualized echogenic material on thornton scale. No defe cts on color images. POPLITEAL: Normal compression, augmentation. No visualized echogenic material on thornton scale. No defec ts on color images. CALF VESSELS: Normal compression, augmentation. No visualized echogenic material on thornton scale. No de fects on color images. GSV and SSV: Normal compression, augmentation. No visualized echogenic material on thornton scale. No def ects on color images. ANY DEEP VENOUS INSUFFICIENCY: Not evaluated. ANY EVIDENCE OF POPLITEAL CYST: No. OTHER: No other significant finding. CONTRALATERAL COMMON FEMORAL VEIN AND SAPHENOFEMORAL JUNCTION: Normal phasicity, compression and augmentation. No visualized echogenic material on thornton scale. No de fects on color images. IMPRESSION: NO EVIDENCE OF DVT OR SVT IN THE LEFT LEG. TECHNICAL DOCUMENTATION: JOB ID: [id number] [employer]- All Rights Reserved Reading location - IP/workstation name: [email or web address]
[2018-03-23] MEDS ORDERED: VANCOMYCIN HCL INJ 1000 MG VIAL IV ONE (14:26)
[2018-03-23] MEDS ORDERED: AZTREONAM INJ 1 GM VIAL IV ONE (14:29)
[2018-03-23] MEDS ORDERED: ONDANSETRON HCL INJ/PF 4 MG/2 ML SDV IV ONE (14:30)
[2018-03-23 14:44] LABS: APPEARANCE,URINE CLEAR; BILIRUBIN,URINE NEGATIVE (NEGATIVE); COLOR,URINE STRAW; GLUCOSE, URINE NEGATIVE (NEGATIVE); KETONES,URINE NEGATIVE (NEGATIVE); LEUKOCYTE ESTERASE,URINE NEGATIVE (NEGATIVE); NITRITE,URINE NEGATIVE (NEGATIVE); PROTEIN,URINE NEGATIVE (NEGATIVE); URINE SPECIFIC GRAVITY 1.016; UROBILINOGEN,URINE NEGATIVE mg/dL (<2.0)
[2018-03-23] MEDS ORDERED: ACETAMINOPHEN 325 MG TABLET PO PRN (16:09)
[2018-03-23] MEDS ORDERED: LEVALBUTEROL HCL NEB 1.25 MG/3 ML AMPUL NEB PRN (16:09)
[2018-03-23] MEDS ORDERED: IPRATROPIUM/ALBUTEROL 0.5-2.5 MG/3 ML AMPUL NEB PRN (16:09)
[2018-03-23] MEDS ORDERED: VANCOMYCIN HCL 0 MG in DEXTROSE 5%-WATER 250 ML IV NR (16:30)
[2018-03-23] MEDS ORDERED: DEXTROSE 50%-WATER 25 GM/50 ML DISP.SYRIN IV PRN ×2 (16:31)
[2018-03-23] MEDS ORDERED: GLUCAGON,HUMAN RECOMB 1 MG INJ IM PRN (16:31)
[2018-03-23] MEDS ORDERED: DEXTROSE 40% GEL 15 GM TUBE PO PRN ×2 (16:31)
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
[2018-03-23 19:06] LABS: CREATINE KINASE MB 0.83 ng/mL (<4.55); TROPONIN I 0.027 ng/mL
[2018-03-23] MEDS ORDERED: WARFARIN SODIUM 4 MG TABLET PO SCH (22:00)
[2018-03-23] MEDS ORDERED: AZTREONAM INJ 1 GM VIAL ONE (22:56)
[2018-03-23] MEDS: FUROSEMIDE INJ/PF 40 MG/4 ML SDV IV SCH (22:59)
[2018-03-23] MEDS: FAMOTIDINE INJ/PF 20 MG/2 ML SDV IV SCH (23:05)
[2018-03-23] MEDS: AZTREONAM 2 GM in DEXTROSE 5%-WATER 50 ML IV SCH (23:37)
[2018-03-24 01:12] LABS: CREATINE KINASE MB 0.62 ng/mL (<4.55); TROPONIN I 0.027 ng/mL
[2018-03-24] MEDS: AZTREONAM 2 GM in DEXTROSE 5%-WATER 50 ML IV SCH (05:53)
[2018-03-24] MEDS: LEVOTHYROXINE SODIUM 0.15 MG TABLET PO SCH (05:56)
[2018-03-24 06:42] LABS: ABSOLUTE LYMPHOCYTES (AUTO) 0.7 10^3/uL (0.5-4.7); ABSOLUTE MONOCYTES (AUTO) 0.7 10^3/uL (0.1-1.4); ABSOLUTE NEUT (AUTO) 5.3 10^3/uL (1.7-8.2); BASOPHILS % (AUTO) 0.6 % (0-2); EOSINOPHILS % (AUTO) 0.7 % (0-6); HEMATOCRIT 27.2 % (37.9-51.0); MEAN CORPUSCULAR VOLUME 79 fl (80-97); MONOCYTES % (AUTO) 10.3 % (3-13); PLATELET COUNT 200 10^3/uL (150-450); RED BLOOD COUNT 3.46 10^6/uL (4.35-5.55); SEGMENTED NEUTROPHILS % (AUTO) 78.4 % (42-78); TOTAL CELLS COUNTED % (AUTO) 100 %; WHITE BLOOD COUNT 6.8 10^3/uL (4.0-10.5)
[2018-03-24 07:02] LABS: ALANINE AMINOTRANSFERASE 22 U/L (21-72); ALBUMIN 2.5 g/dL (3.5-5.0); ALKALINE PHOSPHATASE 64 U/L (38-126); ANION GAP 9 (5-19); ASPARTATE AMINO TRANSFERASE 21 U/L (17-59); BILIRUBIN,DIRECT 0.3 mg/dL (0.0-0.4); BILIRUBIN,TOTAL 0.6 mg/dL (0.2-1.3); BLOOD UREA NITROGEN 21 mg/dL (7-20); CALCIUM 7.1 mg/dL (8.4-10.2); CARBON DIOXIDE 25 mmol/L (22-30); CHLORIDE 104 mmol/L (98-107); GLUCOSE 103 mg/dL (75-110); POTASSIUM 3.4 mmol/L (3.6-5.0); SODIUM 137.7 mmol/L (137-145); TOTAL PROTEIN 4.8 g/dL (6.3-8.2)
[2018-03-24 07:03] LABS: ARTERIAL BLOOD BASE EXCESS -0.4 mmol/L; ARTERIAL BLOOD H2CO3 1.02 mmol/L (1.05-1.35); ARTERIAL BLOOD HCO3 23.2 mmol/L (20-24); ARTERIAL BLOOD O2 SATURATION 95.4 % (94-98); ARTERIAL BLOOD PCO2 33.9 mmHg (35-45); ARTERIAL BLOOD PH 7.45 (7.35-7.45); ARTERIAL BLOOD PO2 72.3 mmHg (80-100); ARTERIAL BLOOD TOTAL CO2 24.2 mmol/L (23-27)
[2018-03-24 07:05] LABS: ARTERIAL BLOOD FIO2 3 L
[2018-03-24 07:12] LABS: CREATINE KINASE MB 0.64 ng/mL (<4.55); TROPONIN I 0.022 ng/mL
--- NOTE | 2018-03-24 08:49 | EKG REPORT ---
SEVERITY:- ABNORMAL ECG - ATRIAL FIBRILLATION VENTRICULAR PREMATURE COMPLEX RIGHT BUNDLE BRANCH BLOCK NONSPECIFIC ST-T CHANGES IN ANTERIOR LEADS (V4-V6), NEW SINCE 03/23/18 EKG, CLINICAL CORRELATION MARIANA DED. : Confirmed by: Nickolas Hernández MD 24-Mar-2018 08:49:16
[2018-03-24] MEDS ORDERED: MAGNESIUM HYDROXIDE SUSP 30 ML UDCUP PO PRN (09:19)
[2018-03-24] MEDS ORDERED: ENOXAPARIN SODIUM INJ 30 MG/0.3 ML DISP.SYRIN SUBCUT SCH (10:00)
[2018-03-24] MEDS ORDERED: FUROSEMIDE INJ/PF 20 MG/2 ML SDV IV SCH (10:00)
[2018-03-24] MEDS: SENNOSIDES/DOCUSATE 8.6-50 MG 1 EACH TABLET PO SCH ×2 (10:03→20:21)
[2018-03-24] MEDS: FUROSEMIDE INJ/PF 40 MG/4 ML SDV IV SCH ×2 (10:03→21:31)
[2018-03-24] MEDS: FAMOTIDINE INJ/PF 20 MG/2 ML SDV IV SCH ×2 (10:03→21:32)
--- NOTE | 2018-03-24 10:10 | RADIOLOGY REPORT (SQ) ---
EXAM DESCRIPTION: CHEST 2 VIEWS COMPLETED DATE/TIME: 03/24/2018 9:15 am REASON FOR STUDY: PNA. Pleural effusions COMPARISON: CT chest 03/23/2018, 03/15/2018 Chest films 01/27/2018, 03/23/2018 EXAM PARAMETERS: NUMBER OF VIEWS: two views TECHNIQUE: Digital Frontal and Lateral radiographic views of the chest acquired. RADIATION DOSE: NA LIMITATIONS: none FINDINGS: LUNGS AND PLEURA: Small right, small moderate left pleural effusion. This is similar comp ared to 03/23/2018. Left lower lobe consolidation with air bronchograms atelectasis versus pneumonia. There are Ramiro lines from interstitial edema. No fluffy perihilar pulmonary edema. No pneumothorax MEDIASTINUM AND HILAR STRUCTURES: No masses or contour abnormalities. HEART AND VASCULAR STRUCTURES: Stable moderate to marked cardiomegaly BONES: No acute findings. HARDWARE: Right jugular central line tip superior vena cava OTHER: No other significant finding. IMPRESSION: Small right moderate left pleural effusion. Left lower lobe consolidation atelectasis versus pneumonia Interstitial edema with Ramiro lines Stable moderate to marked cardiomegaly TECHNICAL DOCUMENTATION: JOB ID: [id number] [employer]- All Rights Reserved Reading location - IP/workstation name: [email or web address]
[2018-03-24] MEDS: VANCOMYCIN HCL 1,250 MG in DEXTROSE 5%-WATER 250 ML IV SCH ×2 (11:37→23:48)
--- NOTE | 2018-03-24 12:33 | PDOC CONSULTATION ---
Consultation Consult Date: 03/24/18 Attending physician:: ASHLEY LYON Consult reason:: SOB/STATON, stage IV prostate ca History of Present Illness Admission Date/PCP: 03/23/18 14:49 CARLEY JOHNSON MD Patient complains of: SOB/STATON History of Present Illness: MAGALIE ABAD is a 77 year old male with known history of stage IV prostate cancer. Please see the prostate cancer history tab for full details, but he has been through multiple lines of therapy, most recently on the chemotherapy drug Jevtana, he received cycle #3 of that about 1 month ago. He was set to receive cycle #4 last week, but he had an elevated white count, and so treatment was going to be delayed till this week. In the last 3-4 days prior to admission he began having increased shortness of breath, lower extremity edema, and his family brought him in because of this. Upon admission he had a CTA of the chest done, this indicated increased bilateral pleural effusions, and left lower lobe opacity. There is concern of both possible left lower lobe pneumonia versus/plus worsened CHF, of note he does have known CHF with EF 30% to 40%. His BNP was 19,000, over his baseline of around 4000. Initially was on BiPAP, now is on nasal cannula. Seems to feel better. He is being diuresed as well as being treated for pneumonia. Of note, imaging done just about 2 weeks ago, indicated overall stable disease, he does have stable bony metastasis as well as stable retroperitoneal adenopathy. Thus far, the bilateral pleural effusions seem more related to chronic heart failure rather than disease burden, although they are worsened because of probable increased CHF exacerbation. Past Medical History Cardiac Medical History: Reports: Atrial Fibrillation - Chronic atrial fibrillation, Congestive Heart Failure, Coronary Artery Disease, Myocardial Infarction, Hypertension Denies: Hyperlipidema Pulmonary Medical History: Reports: Chronic Obstructive Pulmonary Disease (COPD) Denies: Asthma, Bronchitis, Pneumonia EENT Medical History: Reports: Cataracts Neurological Medical History: Reports: None Denies: Seizures Endocrine Medical History: Reports: Diabetes Mellitus Type 1, Diabetes Mellitus Type 2, Hyperthyroidism Malignancy Medical History: Reports: Bone Cancer, Other - Prostate ca Malignancy History Note: Prostate Cancer - diagnosed 2001. Maciel 3+4=7 a. Radical Prostatectomy 2001 b. 07/2011 rising PSA. 08/2011 Bone scan with mets. c. 08/2011 started Firmagon and Zometa d. changed from zometa to xgeva due to slight increased Cr. e. 05/2013 received Provenge f. 06/2013 Started Zytiga and Prednisone, continued Xgeva. g. Changed to [address] Naqvi 12/2014 h. 04/2016 Bone scan with progression. Started Xtandi 05/2016 i. XRT to lumbar spine 11/2016 j. 10/2017 Xtandi stopped. Taxotere started. Continued Xgeva. h. Repeat CT after 3 cycles of Taxotere showed marked progression. i. Change to Carbazitaxel on 12/27/2017. j. Repeat CT after 3 cycles showed improvement in measurable disease. Decreased PSA as well. 2. Bone Mets a. Bone Scan 03/2018 showed stable disease. b. Continues Xgeva q 6 weeks. GI Medical History: Denies: Hepatitis, Hiatal Hernia Musculoskeltal Medical History: Reports: Arthritis Psychiatric Medical History: Denies: Depression Hematology: Denies: Anemia, Sickle Cell Disease Past Surgical History Past Surgical History: Reports: Carotid Endarterectomy, Cholecystectomy, Thyroidectomy, Other - Port-A-Cath placement Denies: Pacemaker Social History Lives with: Alone Smoking Status: Never Smoker Cigarettes Packs Per Day: 2 Pipes Per Day: 40 Last Time Smoked: 1989 Frequency of Alcohol Use: None Hx Recreational Drug Use: No Drugs: None Hx Prescription Drug Abuse: No - Advance Directive Resuscitation Status: Do Not Intubate Family History Family History: CAD, DM Parental Family History Reviewed: Yes Children Family History Reviewed: Yes Sibling(s) Family History Reviewed.: Yes Medication/Allergy Home Medications: Aspirin [Adult Aspirin] 81 mg PO DAILY 03/24/18 Bicalutamide [Casodex 50 mg Tablet] 50 mg PO DAILY 03/24/18 Bumetanide [Bumex 1 mg Tablet] 1 mg PO DAILY 03/24/18 Cetirizine HCl [Zyrtec 10 mg Tablet] 10 mg PO DAILY 03/24/18 Cholecalciferol (Vitamin D3) [Vitamin D3 1000 Unit Tablet] 4,000 unit PO DAILY 03/24/18 Furosemide [Lasix 20 mg Tablet] 20 mg PO DAILY 03/24/18 Insulin Aspart Protam & Aspart [Novolog Mix 70-30 Vial] 0 units SQ .PERSLIDINGSCALE 03/24/18 Levothyroxine Sodium [Synthroid] 200 mcg PO Q6AM 03/24/18 Metoprolol Tartrate [Lopressor 25 mg Tablet] 25 mg PO BID 03/24/18 Nitroglycerin [Nitromist] 1 spray SL Q5MP PRN 03/24/18 Omeprazole 20 mg PO DAILY 03/24/18 Potassium Chloride [K-Tab ER] 20 meq PO DAILY 03/24/18 Rosuvastatin Calcium [Crestor 5 mg Tablet] 5 mg PO QHS 03/24/18 Tolterodine Tartrate [Detrol LA] 4 mg PO DAILY 03/24/18 Warfarin Sodium [Coumadin 5 mg Tablet] 5 mg PO SUTUTHSA 03/24/18 Warfarin Sodium [Coumadin] 10 mg PO MOWEFR 03/24/18 Allergies/Adverse Reactions: Penicillins Allergy (Mild, Verified 03/23/18 12:02) Rash Review of Systems Constitutional: PRESENT: fatigue, weakness Cardiovascular: PRESENT: dyspnea on exertion, edema, orthropnea Respiratory: PRESENT: dyspnea Gastrointestinal: ABSENT: abdominal pain, constipation, diarrhea, hematemesis, hematochezia, nausea, vomiting Musculoskeletal: PRESENT: back pain, muscle weakness Neurological: PRESENT: weakness Endocrine: PRESENT: cold intolerance Physical Exam Vital Signs: Temp Pulse Resp BP Pulse Ox 98.2 F 70 17 95/59 L 96 03/24/18 07:21 03/24/18 08:41 03/24/18 08:41 03/24/18 07:21 03/24/18 08:41 Pulse Oximeter Continuous Start: 03/23/18 16: 11 Freq: RTQ4 Status: Active Document 03/24/18 08:41 HCR (Rec: 03/24/18 08:43 HCR [id number]) Pulse Oximetry Assessment Oxygen Saturation (92-100) 96 Oxygen Flow Rate (L/min) 3 Oxygen Delivery Method Nasal Cannula Equipment Usage Equipment in Use Continuous SpO2 Machine # 8 Intake & Output 03/23/18 03/24/18 03/25/18 06:59 06:59 06:59 Intake Total 405 50 Output Total 2950 Balance -2546 50 Weight 83.1 kg General appearance: PRESENT: no acute distress Mouth exam: PRESENT: dry mucosa Respiratory exam: PRESENT: accessory muscle use, crackles, decreased breath sounds Cardiovascular exam: PRESENT: RRR. ABSENT: diastolic murmur, rubs, systolic murmur GI/Abdominal exam: PRESENT: normal bowel sounds, soft. ABSENT: distended, guarding, mass, organolmegaly, rebound, tenderness Rectal exam: PRESENT: deferred Extremities exam: PRESENT: pedal edema, +2 edema Neurological exam: PRESENT: alert, awake, oriented to person, oriented to place , oriented to time, oriented to situation, CN II-XII grossly intact. ABSENT: motor sensory deficit Results Laboratory Results: 03/24/18 06:25 03/24/18 06:25 03/24/18 03/24/18 03/24/18 06:25 06:25 06:50 WBC 6.8 RBC 3.46 L Hgb 9.0 L Hct 27.2 L MCV 79 L MCH 26.0 L MCHC 33.0 RDW 22.0 H Plt Count 200 Seg Neutrophils % 78.4 H Lymphocytes % 10.0 L Monocytes % 10.3 Eosinophils % 0.7 Basophils % 0.6 Absolute Neutrophils 5.3 Absolute Lymphocytes 0.7 Absolute Monocytes 0.7 Absolute Eosinophils 0.0 Absolute Basophils 0.0 Carbonic Acid 1.02 L HCO3/H2CO3 Ratio 22:1 ABG pH 7.45 ABG pCO2 33.9 L ABG pO2 72.3 L ABG HCO3 23.2 ABG O2 Saturation 95.4 ABG Base Excess -0.4 FiO2 3 L Sodium 137.7 Potassium 3.4 L Chloride 104 Carbon Dioxide 25 Anion Gap 9 BUN 21 H Creatinine 0.93 Est GFR ( Amer) > 60 Est GFR (Non-Af Amer) > 60 Glucose 103 Calcium 7.1 L Total Bilirubin 0.6 AST 21 ALT 22 Alkaline Phosphatase 64 Total Protein 4.8 L Albumin 2.5 L 03/23/18 03/24/18 03/24/18 18:30 00:35 06:25 CK-MB (CK-2) 0.83 0.62 0.64 Troponin I 0.027 0.027 0.022 NT-Pro-B Natriuret Pep 93129 H Impressions: Venous Doppler Study 03/23/18 12:32 IMPRESSION: NO EVIDENCE OF DVT OR SVT IN THE LEFT LEG. Chest/Abdomen CTA 03/23/18 12:44 IMPRESSION: Interval increase in bilateral pleural effusion volumes as well as increased left lower lobe dense consolidation. No discrete pulmonary emboli are visualized. Inhomogeneous opacification of the left main pulmonary artery and left lower lobe pulmonary arteries is favored to be on the basis of mixing artifact. Chest X-Ray 03/24/18 08:00 IMPRESSION: Small right moderate left pleural effusion. Left lower lobe consolidation atelectasis versus pneumonia Interstitial edema with Ramiro lines Stable moderate to marked cardiomegaly Status: Image reviewed by me Assessment & Plan - Diagnosis (1) Prostate cancer metastatic to bone Is this a current diagnosis for this admission?: Yes Plan: Overall most likely stable disease. His recent imaging as well as PSA seems stable. And he has responded well in our opinion to chemotherapy thus far. Once his medical conditions are optimized, we would consider continuation of chemotherapy as an outpatient. Unlikely that the findings on CTA of the chest are related to the prostate cancer, more likely related to heart failure as well as possible pneumonia. (2) HCAP (healthcare-associated pneumonia) Is this a current diagnosis for this admission?: Yes Plan: Agree with current antibiotic approach. He does have some element of immunosuppression because of recent chemotherapy. If cultures are negative for 48 hours would consider discontinuation of vancomycin. (3) Acute on chronic systolic CHF (congestive heart failure) Is this a current diagnosis for this admission?: Yes Plan: Agree with current hospitalist approach, will follow. 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 We could consider growth factor support as an outpatient. - Time Time Spent: Greater than 70 Minutes - Inpatient Certification Based on my medical assessment, after consideration of the patient's comorbidities, presenting symptoms, or acuity I expect that the services needed warrant INPATIENT care.: Yes I certify that my determination is in accordance with my understanding of Medicare's requirements for reasonable and necessary INPATIENT services [42 CFR 412.3e].: Yes Medical Necessity: Need For Continuous Telemetry Monitoring, Need for IV Antibiotics, Risk of Complication if Not Cared For in Hospital
[2018-03-24] MEDS: AZTREONAM 2 GM in DEXTROSE 5%-WATER 100 ML IV SCH ×2 (14:29→21:31)
[2018-03-24] MEDS: INSULIN LISPRO 100 UNIT/ML 3 ML VIAL SUBCUT PRN ×2 (17:31→21:41)
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
[2018-03-24] MEDS ORDERED: METOPROLOL TARTRATE 25 MG TABLET PO ONE (20:00)
[2018-03-24] MEDS ORDERED: WARFARIN SODIUM 5 MG TABLET PO ONE (20:05)
[2018-03-24] MEDS: ATORVASTATIN CALCIUM 10 MG TABLET PO SCH (21:32)
[2018-03-24] MEDS ORDERED: BENZONATATE 100 MG CAPSULE PO PRN (22:51)
[2018-03-25 04:51] LABS: HEMATOCRIT 27.6 % (37.9-51.0); MEAN CORPUSCULAR HEMOGLOBIN 25.6 pg (27.0-33.4); MEAN CORPUSCULAR HGB CONC 32.8 g/dL (32.0-36.0); MEAN CORPUSCULAR VOLUME 78 fl (80-97); PLATELET COUNT 198 10^3/uL (150-450); RED BLOOD COUNT 3.53 10^6/uL (4.35-5.55); RED CELL DISTRIBUTION WIDTH 22.3 % (11.5-14.0); WHITE BLOOD COUNT 6.7 10^3/uL (4.0-10.5)
[2018-03-25 04:57] LABS: INTERNATIONAL RATION (INR) 2.22; PROTHROMBIN TIME 25.7 SEC (11.4-15.4)
[2018-03-25 05:15] LABS: ALANINE AMINOTRANSFERASE 23 U/L (21-72); ALBUMIN 2.6 g/dL (3.5-5.0); ALKALINE PHOSPHATASE 64 U/L (38-126); ANION GAP 9 (5-19); ASPARTATE AMINO TRANSFERASE 17 U/L (17-59); BILIRUBIN,DIRECT 0.2 mg/dL (0.0-0.4); BILIRUBIN,TOTAL 0.4 mg/dL (0.2-1.3); BLOOD UREA NITROGEN 22 mg/dL (7-20); CALCIUM 7.9 mg/dL (8.4-10.2); CARBON DIOXIDE 27 mmol/L (22-30); CHLORIDE 101 mmol/L (98-107); GLUCOSE 118 mg/dL (75-110); POTASSIUM 3.9 mmol/L (3.6-5.0); SODIUM 137.3 mmol/L (137-145); TOTAL PROTEIN 5.5 g/dL (6.3-8.2)
[2018-03-25] MEDS: LEVOTHYROXINE SODIUM 0.15 MG TABLET PO SCH (05:46)
[2018-03-25] MEDS: AZTREONAM 2 GM in DEXTROSE 5%-WATER 100 ML IV SCH ×3 (05:46→21:24)
[2018-03-25] MEDS: LANSOPRAZOLE 15 MG TAB.RAP.DR PO SCH (05:48)
[2018-03-25] MEDS: LEVOTHYROXINE SODIUM 0.1 MG TABLET PO SCH (05:48)
--- NOTE | 2018-03-25 08:00 | PDOC PROGRESS REPORT ---
Subjective Progress Note for:: 03/25/18 Subjective:: Patient states that he is feeling better. No problems overnight. He only was up in chair yesterday, not yet walking in [place]. Breathing has improved. He is worried about cancelling other MD appointment today, as he is in the hospital. Reason For Visit: PNEUMONIA,BILATERAL PLEUAL EFFUSIONS Physical Exam Vital Signs: Temp Pulse Resp BP Pulse Ox 98.4 F 85 20 120/62 97 03/25/18 04:22 03/25/18 07:00 03/25/18 04:22 03/25/18 04:22 03/25/18 04:41 Pulse Oximeter Continuous Start: 03/23/18 16: 11 Freq: RTQ4 Status: Active Document 03/25/18 04:41 CMI (Rec: 03/25/18 04:42 CMI [email or web address]) Pulse Oximetry Assessment Oxygen Saturation (92-100) 97 Oxygen Flow Rate (L/min) 3 Oxygen Delivery Method Nasal Cannula Fraction of Inspired Oxygen (FIO2) 32 Equipment Usage Equipment in Use Continuous SpO2 Machine # 8 Intake & Output 03/24/18 03/25/18 03/26/18 06:59 06:59 06:59 Intake Total 405 1683 Output Total 2950 1750 Balance -2545 -67 Weight 83.1 kg 83.6 kg General appearance: PRESENT: no acute distress Eye exam: PRESENT: EOMI Respiratory exam: PRESENT: crackles - Left base., unlabored Cardiovascular exam: PRESENT: RRR GI/Abdominal exam: PRESENT: normal bowel sounds, soft. ABSENT: tenderness Extremities exam: PRESENT: +1 edema Neurological exam: PRESENT: alert, awake, oriented to person, oriented to place , oriented to time, oriented to situation Psychiatric exam: PRESENT: appropriate affect Skin exam: PRESENT: normal color Results Laboratory Results: 03/25/18 04:18 03/25/18 04:18 03/25/18 03/25/18 04:18 04:18 WBC 6.7 RBC 3.53 L Hgb 9.0 L Hct 27.6 L MCV 78 L MCH 25.6 L MCHC 32.8 RDW 22.3 H Plt Count 198 Sodium 137.3 Potassium 3.9 Chloride 101 Carbon Dioxide 27 Anion Gap 9 BUN 22 H Creatinine 0.94 Est GFR ( Amer) > 60 Est GFR (Non-Af Amer) > 60 Glucose 118 H Calcium 7.9 L Magnesium 1.9 Total Bilirubin 0.4 AST 17 ALT 23 Alkaline Phosphatase 64 Total Protein 5.5 L Albumin 2.6 L 03/23/18 03/24/18 03/24/18 18:30 00:35 06:25 CK-MB (CK-2) 0.83 0.62 0.64 Troponin I 0.027 0.027 0.022 NT-Pro-B Natriuret Pep 46410 H 03/25/18 04:18 CK-MB (CK-2) Troponin I NT-Pro-B Natriuret Pep 82054 H Impressions: Venous Doppler Study 03/23/18 12:32 IMPRESSION: NO EVIDENCE OF DVT OR SVT IN THE LEFT LEG. Chest/Abdomen CTA 03/23/18 12:44 IMPRESSION: Interval increase in bilateral pleural effusion volumes as well as increased left lower lobe dense consolidation. No discrete pulmonary emboli are visualized. Inhomogeneous opacification of the left main pulmonary artery and left lower lobe pulmonary arteries is favored to be on the basis of mixing artifact. Chest X-Ray 03/24/18 08:00 IMPRESSION: Small right moderate left pleural effusion. Left lower lobe consolidation atelectasis versus pneumonia Interstitial edema with Ramiro lines Stable moderate to marked cardiomegaly Assessment & Plan - Diagnosis (1) Prostate cancer metastatic to bone Is this a current diagnosis for this admission?: Yes Plan: Recent scans and labs show response to current treatment. Last dose was over 3 weeks ago. Plan to resume treatment with Carbazitaxel and denosumab next week, if current symptoms have resolved. (2) Anticoagulated on Coumadin Is this a current diagnosis for this admission?: Yes Plan: Maintain goal INR 2-3. (3) Acute on chronic systolic CHF (congestive heart failure) Is this a current diagnosis for this admission?: Yes Plan: Improved today. - Plan Summary Plan Summary: Please call with any questions or concerns. He has an appointment with me later this week for re-evaluation and possible chemotherapy.
--- NOTE | 2018-03-25 08:35 | PDOC PROGRESS REPORT ---
Subjective Progress Note for:: 03/25/18 Subjective:: The patient states to feel better. His breathing has improved. He is in negative balance since admission. Reason For Visit: PNEUMONIA,BILATERAL PLEUAL EFFUSIONS Physical Exam Vital Signs: Temp Pulse Resp BP Pulse Ox 98.6 F 102 H 22 H 95/65 L 98 03/25/18 07:44 03/25/18 07:44 03/25/18 07:44 03/25/18 07:44 03/25/18 07:44 Pulse Oximeter Continuous Start: 03/23/18 16: 11 Freq: RTQ4 Status: Active Document 03/25/18 04:41 CMI (Rec: 03/25/18 04:42 CMI [email or web address]) Pulse Oximetry Assessment Oxygen Saturation (92-100) 97 Oxygen Flow Rate (L/min) 3 Oxygen Delivery Method Nasal Cannula Fraction of Inspired Oxygen (FIO2) 32 Equipment Usage Equipment in Use Continuous SpO2 Machine # 8 Intake & Output 03/24/18 03/25/18 03/26/18 06:59 06:59 06:59 Intake Total 405 1683 Output Total 2950 1750 Balance -2545 -67 Weight 83.1 kg 83.6 kg General appearance: PRESENT: mild distress Head exam: PRESENT: atraumatic Eye exam: PRESENT: conjunctiva pink Neck exam: PRESENT: carotid bruit, JVD Respiratory exam: PRESENT: rales, rhonchi Cardiovascular exam: PRESENT: irregular rhythm, +S1, +S2 GI/Abdominal exam: PRESENT: normal bowel sounds, soft Extremities exam: PRESENT: pedal edema Musculoskeletal exam: PRESENT: tenderness Neurological exam: PRESENT: alert, awake Results Laboratory Results: 03/25/18 04:18 03/25/18 04:18 03/25/18 03/25/18 04:18 04:18 WBC 6.7 RBC 3.53 L Hgb 9.0 L Hct 27.6 L MCV 78 L MCH 25.6 L MCHC 32.8 RDW 22.3 H Plt Count 198 Sodium 137.3 Potassium 3.9 Chloride 101 Carbon Dioxide 27 Anion Gap 9 BUN 22 H Creatinine 0.94 Est GFR ( Amer) > 60 Est GFR (Non-Af Amer) > 60 Glucose 118 H Calcium 7.9 L Magnesium 1.9 Total Bilirubin 0.4 AST 17 ALT 23 Alkaline Phosphatase 64 Total Protein 5.5 L Albumin 2.6 L 03/23/18 03/24/18 03/24/18 18:30 00:35 06:25 CK-MB (CK-2) 0.83 0.62 0.64 Troponin I 0.027 0.027 0.022 NT-Pro-B Natriuret Pep [id number] H 03/25/18 04:18 CK-MB (CK-2) Troponin I NT-Pro-B Natriuret Pep 62733 H Impressions: Venous Doppler Study 03/23/18 12:32 IMPRESSION: NO EVIDENCE OF DVT OR SVT IN THE LEFT LEG. Chest/Abdomen CTA 03/23/18 12:44 IMPRESSION: Interval increase in bilateral pleural effusion volumes as well as increased left lower lobe dense consolidation. No discrete pulmonary emboli are visualized. Inhomogeneous opacification of the left main pulmonary artery and left lower lobe pulmonary arteries is favored to be on the basis of mixing artifact. Chest X-Ray 03/24/18 08:00 IMPRESSION: Small right moderate left pleural effusion. Left lower lobe consolidation atelectasis versus pneumonia Interstitial edema with Ramiro lines Stable moderate to marked cardiomegaly Assessment & Plan - Diagnosis (1) Acute on chronic systolic CHF (congestive heart failure) Is this a current diagnosis for this admission?: Yes Plan: Most probably related to the noncompliance with diuretics. 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 transplanted heart: [place] heart Associated angina: without angina Qualified Code(s): I25.810 - Atherosclerosis of coronary artery bypass graft(s) without angina pectoris Is this a current diagnosis for this admission?: Yes Plan: Stable continue current treatment (4) Chronic atrial fibrillation Is this a current diagnosis for this admission?: Yes (5) Diabetes Qualifiers: Diabetes mellitus type: type 2 Diabetes mellitus complication status: without complication Is this a current diagnosis for this admission?: Yes Plan: Continue current treatment (6) Do not resuscitate status Is this a current diagnosis for this admission?: Yes Plan: Continue current DNR status (7) Pleural effusion Is this a current diagnosis for this admission?: Yes Plan: We will continue with diuretics and antibiotics. (8) Prostate cancer metastatic to bone Is this a current diagnosis for this admission?: Yes Plan: Continue current treatment as recommended by the oncology
[2018-03-25] MEDS: TOLTERODINE TARTRATE 1 MG TABLET PO SCH ×2 (09:46→10:29)
[2018-03-25] MEDS: ASPIRIN 81 MG TABLET, ENT COATED PO SCH (10:28)
[2018-03-25] MEDS: FAMOTIDINE INJ/PF 20 MG/2 ML SDV IV SCH (10:28)
[2018-03-25] MEDS: CHOLECALCIFEROL (D3) 1,000 UNIT TABLET PO SCH (10:29)
[2018-03-25] MEDS: SENNOSIDES/DOCUSATE 8.6-50 MG 1 EACH TABLET PO SCH ×2 (10:29→17:24)
[2018-03-25] MEDS: LEVOFLOXACIN 500 MG TABLET PO SCH (10:29)
[2018-03-25] MEDS: BICALUTAMIDE 50 MG TABLET PO SCH (10:29)
[2018-03-25] MEDS: POTASSIUM CHLORIDE 10 MEQ CAPSULE.ER PO SCH (10:29)
[2018-03-25] MEDS: FUROSEMIDE INJ/PF 40 MG/4 ML SDV IV SCH ×3 (10:58→21:41)
[2018-03-25] MEDS: METOPROLOL TARTRATE 25 MG TABLET PO SCH ×2 (10:59→17:25)
[2018-03-25] MEDS ORDERED: WARFARIN SODIUM 5 MG TABLET PO SCH ×2 (18:00)
[2018-03-25] MEDS: ATORVASTATIN CALCIUM 10 MG TABLET PO SCH (21:24)
[2018-03-26] MEDS: LEVOTHYROXINE SODIUM 0.1 MG TABLET PO SCH ×2 (05:21→09:45)
[2018-03-26] MEDS: LANSOPRAZOLE 15 MG TAB.RAP.DR PO SCH (05:21)
[2018-03-26] MEDS: AZTREONAM 2 GM in DEXTROSE 5%-WATER 100 ML IV SCH ×3 (05:21→21:17)
[2018-03-26 06:06] LABS: ABSOLUTE EOSINOPHILS # (AUTO) 0.1 10^3/uL (0.0-0.6); ABSOLUTE LYMPHOCYTES (AUTO) 0.7 10^3/uL (0.5-4.7); ABSOLUTE MONOCYTES (AUTO) 0.7 10^3/uL (0.1-1.4); ABSOLUTE NEUT (AUTO) 5.9 10^3/uL (1.7-8.2); BASOPHILS % (AUTO) 0.6 % (0-2); EOSINOPHILS % (AUTO) 0.9 % (0-6); HEMATOCRIT 29.7 % (37.9-51.0); HEMOGLOBIN 9.9 g/dL (13.5-17.0); LYMPHOCYTES % (AUTO) 9.5 % (13-45); MEAN CORPUSCULAR HGB CONC 33.3 g/dL (32.0-36.0); MEAN CORPUSCULAR VOLUME 78 fl (80-97); MONOCYTES % (AUTO) 9.3 % (3-13); PLATELET COUNT 229 10^3/uL (150-450); RED BLOOD COUNT 3.81 10^6/uL (4.35-5.55); RED CELL DISTRIBUTION WIDTH 22.1 % (11.5-14.0); SEGMENTED NEUTROPHILS % (AUTO) 79.7 % (42-78); TOTAL CELLS COUNTED % (AUTO) 100 %; WHITE BLOOD COUNT 7.4 10^3/uL (4.0-10.5)
[2018-03-26 06:17] LABS: INTERNATIONAL RATION (INR) 1.88; PROTHROMBIN TIME 22.5 SEC (11.4-15.4)
[2018-03-26 06:42] LABS: ALANINE AMINOTRANSFERASE 22 U/L (21-72); ALBUMIN 2.8 g/dL (3.5-5.0); ALKALINE PHOSPHATASE 73 U/L (38-126); ANION GAP 12 (5-19); ASPARTATE AMINO TRANSFERASE 15 U/L (17-59); BILIRUBIN,DIRECT 0.3 mg/dL (0.0-0.4); BILIRUBIN,TOTAL 0.5 mg/dL (0.2-1.3); BLOOD UREA NITROGEN 27 mg/dL (7-20); CALCIUM 8.3 mg/dL (8.4-10.2); CARBON DIOXIDE 23 mmol/L (22-30); CHLORIDE 100 mmol/L (98-107); GLUCOSE 178 mg/dL (75-110); POTASSIUM 4.4 mmol/L (3.6-5.0); SODIUM 135.3 mmol/L (137-145); TOTAL PROTEIN 5.3 g/dL (6.3-8.2)
[2018-03-26] MEDS: INSULIN LISPRO 100 UNIT/ML 3 ML VIAL SUBCUT PRN ×2 (08:33→21:42)
--- NOTE | 2018-03-26 08:36 | PDOC PROGRESS REPORT ---
Subjective Progress Note for:: 03/26/18 Subjective:: The patient states to feel better. He had significant amount of diuresis. His breathing has improved. His leg swelling has improved. He does complain of some cough. Reason For Visit: PNEUMONIA,BILATERAL PLEUAL EFFUSIONS Physical Exam Vital Signs: Temp Pulse Resp BP Pulse Ox 97.6 F 96 20 102/64 100 03/26/18 07:59 03/26/18 07:59 03/26/18 07:59 03/26/18 07:59 03/26/18 08:00 Pulse Oximeter Continuous Start: 03/23/18 16: 11 Freq: RTQ4 Status: Active Document 03/26/18 08:00 MED (Rec: 03/26/18 08:33 MED [email or web address]) Pulse Oximetry Assessment Oxygen Saturation (92-100) 100 Oxygen Flow Rate (L/min) 3 Oxygen Delivery Method Nasal Cannula Equipment Usage Equipment in Use Continuous SpO2 Machine # 8 Intake & Output 03/25/18 03/26/18 03/27/18 06:59 06:59 06:59 Intake Total 1683 1734 Output Total 1750 1700 Balance -67 34 Weight 83.6 kg 83.2 kg General appearance: PRESENT: mild distress Head exam: PRESENT: atraumatic Eye exam: PRESENT: conjunctiva pink Neck exam: PRESENT: carotid bruit. ABSENT: JVD Respiratory exam: PRESENT: tachypnea Cardiovascular exam: PRESENT: irregular rhythm, +S1, +S2 GI/Abdominal exam: PRESENT: normal bowel sounds, soft Extremities exam: PRESENT: tenderness Musculoskeletal exam: PRESENT: tenderness Neurological exam: PRESENT: awake Results Laboratory Results: 03/26/18 05:14 03/26/18 05:14 03/26/18 03/26/18 03/26/18 05:14 05:14 05:14 WBC 7.4 RBC 3.81 L Hgb 9.9 L Hct 29.7 L MCV 78 L MCH 26.0 L MCHC 33.3 RDW 22.1 H Plt Count 229 Seg Neutrophils % 79.7 H Lymphocytes % 9.5 L Monocytes % 9.3 Eosinophils % 0.9 Basophils % 0.6 Absolute Neutrophils 5.9 Absolute Lymphocytes 0.7 Absolute Monocytes 0.7 Absolute Eosinophils 0.1 Absolute Basophils 0.0 Sodium 135.3 L Potassium 4.4 Chloride 100 Carbon Dioxide 23 Anion Gap 12 BUN 27 H Creatinine 0.94 Est GFR ( Amer) > 60 Est GFR (Non-Af Amer) > 60 Glucose 178 H Calcium 8.3 L Magnesium 1.9 Total Bilirubin 0.5 AST 15 L ALT 22 Alkaline Phosphatase 73 Total Protein 5.3 L Albumin 2.8 L TSH < 0.01 L 03/23/18 03/24/18 03/24/18 18:30 00:35 06:25 CK-MB (CK-2) 0.83 0.62 0.64 Troponin I 0.027 0.027 0.022 NT-Pro-B Natriuret Pep 15477 H 03/25/18 03/26/18 04:18 05:14 CK-MB (CK-2) Troponin I NT-Pro-B Natriuret Pep 20306 H 21633 H Impressions: Venous Doppler Study 03/23/18 12:32 IMPRESSION: NO EVIDENCE OF DVT OR SVT IN THE LEFT LEG. Chest/Abdomen CTA 03/23/18 12:44 IMPRESSION: Interval increase in bilateral pleural effusion volumes as well as increased left lower lobe dense consolidation. No discrete pulmonary emboli are visualized. Inhomogeneous opacification of the left main pulmonary artery and left lower lobe pulmonary arteries is favored to be on the basis of mixing artifact. Chest X-Ray 03/24/18 08:00 IMPRESSION: Small right moderate left pleural effusion. Left lower lobe consolidation atelectasis versus pneumonia Interstitial edema with Ramiro lines Stable moderate to marked cardiomegaly Assessment & Plan - Diagnosis (1) Acute on chronic systolic CHF (congestive heart failure) Is this a current diagnosis for this admission?: Yes Plan: Most probably related to the noncompliance with diuretics. 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 transplanted heart: [place] heart Associated angina: without angina Qualified Code(s): I25.810 - Atherosclerosis of coronary artery bypass graft(s) without angina pectoris Is this a current diagnosis for this admission?: Yes Plan: Stable continue current treatment (4) Chronic atrial fibrillation Is this a current diagnosis for this admission?: Yes Plan: We will continue current medications (5) Diabetes Qualifiers: Diabetes mellitus type: type 2 Diabetes mellitus complication status: without complication Is this a current diagnosis for this admission?: Yes Plan: We will adjust insulin (6) Do not resuscitate status Is this a current diagnosis for this admission?: Yes Plan: Continue current DNR status (7) Pleural effusion Is this a current diagnosis for this admission?: Yes Plan: We will continue with diuretics and antibiotics. (8) Prostate cancer metastatic to bone Is this a current diagnosis for this admission?: Yes Plan: Continue current treatment as recommended by the oncology
[2018-03-26] MEDS ORDERED: GLUCAGON,HUMAN RECOMB 1 MG INJ IM PRN (08:39)
[2018-03-26] MEDS ORDERED: DEXTROSE 50%-WATER 25 GM/50 ML DISP.SYRIN IV PRN ×2 (08:39)
[2018-03-26] MEDS ORDERED: DEXTROSE 40% GEL 15 GM TUBE PO PRN ×2 (08:39)
[2018-03-26] MEDS ORDERED: WARFARIN SODIUM 5 MG TABLET PO SCH ×2 (08:41→18:00)
[2018-03-26] MEDS: CHOLECALCIFEROL (D3) 1,000 UNIT TABLET PO SCH (09:44)
[2018-03-26] MEDS: METOPROLOL TARTRATE 25 MG TABLET PO SCH ×2 (09:45→17:31)
[2018-03-26] MEDS: BICALUTAMIDE 50 MG TABLET PO SCH (09:45)
[2018-03-26] MEDS: POTASSIUM CHLORIDE 10 MEQ CAPSULE.ER PO SCH (09:45)
[2018-03-26] MEDS: FUROSEMIDE INJ/PF 40 MG/4 ML SDV IV SCH ×2 (09:45→21:12)
[2018-03-26] MEDS: LEVOFLOXACIN 500 MG TABLET PO SCH (09:46)
[2018-03-26] MEDS: SENNOSIDES/DOCUSATE 8.6-50 MG 1 EACH TABLET PO SCH ×2 (09:46→17:31)
[2018-03-26] MEDS: ASPIRIN 81 MG TABLET, ENT COATED PO SCH (09:47)
[2018-03-26] MEDS: BENZONATATE 100 MG CAPSULE PO SCH ×2 (13:38→21:12)
[2018-03-26] MEDS ORDERED: WARFARIN SODIUM 2 MG TABLET PO SCH (18:00)
[2018-03-26] MEDS: ATORVASTATIN CALCIUM 10 MG TABLET PO SCH (21:12)
[2018-03-26] MEDS: INSULIN GLARGINE,HUM.REC.ANLOG 300 UNIT/3 ML INSULN.PEN SUBCUT SCH (21:42)
[2018-03-27 05:06] LABS: ABSOLUTE EOSINOPHILS # (AUTO) 0.1 10^3/uL (0.0-0.6); ABSOLUTE LYMPHOCYTES (AUTO) 0.8 10^3/uL (0.5-4.7); ABSOLUTE MONOCYTES (AUTO) 0.8 10^3/uL (0.1-1.4); ABSOLUTE NEUT (AUTO) 5.1 10^3/uL (1.7-8.2); BASOPHILS % (AUTO) 0.6 % (0-2); EOSINOPHILS % (AUTO) 1.2 % (0-6); HEMATOCRIT 29.9 % (37.9-51.0); HEMOGLOBIN 9.8 g/dL (13.5-17.0); LYMPHOCYTES % (AUTO) 12.2 % (13-45); MEAN CORPUSCULAR HEMOGLOBIN 25.5 pg (27.0-33.4); MEAN CORPUSCULAR HGB CONC 32.6 g/dL (32.0-36.0); MEAN CORPUSCULAR VOLUME 78 fl (80-97); MONOCYTES % (AUTO) 11.9 % (3-13); PLATELET COUNT 232 10^3/uL (150-450); RED BLOOD COUNT 3.83 10^6/uL (4.35-5.55); RED CELL DISTRIBUTION WIDTH 22.3 % (11.5-14.0); SEGMENTED NEUTROPHILS % (AUTO) 74.1 % (42-78); TOTAL CELLS COUNTED % (AUTO) 100 %; WHITE BLOOD COUNT 6.8 10^3/uL (4.0-10.5)
[2018-03-27] MEDS: LANSOPRAZOLE 15 MG TAB.RAP.DR PO SCH (05:09)
[2018-03-27] MEDS: LEVOTHYROXINE SODIUM 0.1 MG TABLET PO SCH (05:09)
[2018-03-27] MEDS: BENZONATATE 100 MG CAPSULE PO SCH ×3 (05:09→21:51)
[2018-03-27] MEDS: AZTREONAM 2 GM in DEXTROSE 5%-WATER 100 ML IV SCH ×3 (05:09→21:44)
[2018-03-27 05:25] LABS: INTERNATIONAL RATION (INR) 1.68; PROTHROMBIN TIME 20.6 SEC (11.4-15.4)
[2018-03-27 05:36] LABS: ALANINE AMINOTRANSFERASE 18 U/L (21-72); ALBUMIN 2.9 g/dL (3.5-5.0); ALKALINE PHOSPHATASE 69 U/L (38-126); ANION GAP 11 (5-19); ASPARTATE AMINO TRANSFERASE 15 U/L (17-59); BILIRUBIN,DIRECT 0.2 mg/dL (0.0-0.4); BILIRUBIN,TOTAL 0.5 mg/dL (0.2-1.3); BLOOD UREA NITROGEN 29 mg/dL (7-20); CALCIUM 8.4 mg/dL (8.4-10.2); CARBON DIOXIDE 25 mmol/L (22-30); CHLORIDE 100 mmol/L (98-107); GLUCOSE 90 mg/dL (75-110); SODIUM 135.7 mmol/L (137-145); TOTAL PROTEIN 5.5 g/dL (6.3-8.2)
[2018-03-27] MEDS ORDERED: WARFARIN SODIUM 2 MG TABLET PO SCH (07:41)
--- NOTE | 2018-03-27 07:54 | PDOC PROGRESS REPORT ---
Subjective Progress Note for:: 03/27/18 Subjective:: Patient states he is feeling better. He still has a cough that keeps him up at night, but the Tessalon is helping him sleep better without coughing. His stools have been hard. He uses Mineral oil from time to time for this at home. He has not been able to walk much yet, but spends most of his time in the chair. ROS: Cough, constipation, No chest pain. Good appetite. Reason For Visit: PNEUMONIA,BILATERAL PLEUAL EFFUSIONS Physical Exam Vital Signs: Temp Pulse Resp BP Pulse Ox 98.2 F 80 20 89/65 L 100 03/27/18 03:04 03/27/18 03:04 03/27/18 03:04 03/27/18 03:04 03/27/18 04:00 Pulse Oximeter Continuous Start: 03/23/18 16: 11 Freq: RTQ4 Status: Active Document 03/27/18 04:00 LRO (Rec: 03/27/18 05:42 LRO [id number]) Pulse Oximetry Assessment Oxygen Saturation (92-100) 100 Oxygen Flow Rate (L/min) 2.5 Oxygen Delivery Method Nasal Cannula Equipment Usage Equipment in Use Continuous SpO2 Machine # 8 Intake & Output 03/26/18 03/27/18 03/28/18 06:59 06:59 06:59 Intake Total 1734 1217 Output Total 1700 2024 Balance 34 -808 Weight 83.2 kg 84.1 kg General appearance: PRESENT: no acute distress Head exam: PRESENT: normocephalic Respiratory exam: PRESENT: clear to auscultation carmelo, unlabored Cardiovascular exam: PRESENT: RRR Extremities exam: PRESENT: +1 edema Neurological exam: PRESENT: alert, awake Psychiatric exam: PRESENT: appropriate affect Skin exam: PRESENT: normal color Results Laboratory Results: 03/27/18 04:41 03/27/18 04:41 03/27/18 03/27/18 04:41 04:41 WBC 6.8 RBC 3.83 L Hgb 9.8 L Hct 29.9 L MCV 78 L MCH 25.5 L MCHC 32.6 RDW 22.3 H Plt Count 232 Seg Neutrophils % 74.1 Lymphocytes % 12.2 L Monocytes % 11.9 Eosinophils % 1.2 Basophils % 0.6 Absolute Neutrophils 5.1 Absolute Lymphocytes 0.8 Absolute Monocytes 0.8 Absolute Eosinophils 0.1 Absolute Basophils 0.0 Sodium 135.7 L Potassium 4.0 Chloride 100 Carbon Dioxide 25 Anion Gap 11 BUN 29 H Creatinine 0.94 Est GFR ( Amer) > 60 Est GFR (Non-Af Amer) > 60 Glucose 90 Calcium 8.4 Total Bilirubin 0.5 AST 15 L ALT 18 L Alkaline Phosphatase 69 Total Protein 5.5 L Albumin 2.9 L 03/24/18 04:30 Sputum Gram Stain - Final 03/24/18 04:30 Sputum Sputum Culture - Final NORMAL MUKESH 03/23/18 03/24/18 03/24/18 18:30 00:35 06:25 CK-MB (CK-2) 0.83 0.62 0.64 Troponin I 0.027 0.027 0.022 NT-Pro-B Natriuret Pep 06980 H 03/25/18 03/26/18 04:18 05:14 CK-MB (CK-2) Troponin I NT-Pro-B Natriuret Pep 06880 H 00395 H Impressions: Venous Doppler Study 03/23/18 12:32 IMPRESSION: NO EVIDENCE OF DVT OR SVT IN THE LEFT LEG. Chest/Abdomen CTA 03/23/18 12:44 IMPRESSION: Interval increase in bilateral pleural effusion volumes as well as increased left lower lobe dense consolidation. No discrete pulmonary emboli are visualized. Inhomogeneous opacification of the left main pulmonary artery and left lower lobe pulmonary arteries is favored to be on the basis of mixing artifact. Chest X-Ray 03/24/18 08:00 IMPRESSION: Small right moderate left pleural effusion. Left lower lobe consolidation atelectasis versus pneumonia Interstitial edema with Ramiro lines Stable moderate to marked cardiomegaly Assessment & Plan - Diagnosis (1) Prostate cancer metastatic to bone Is this a current diagnosis for this admission?: Yes Plan: Will delay treatment until next week. (2) Anticoagulated on Coumadin Is this a current diagnosis for this admission?: Yes Plan: His INR has been too low. I will increase the warfarin dose today and monitor this daily. (3) Acute on chronic systolic CHF (congestive heart failure) Is this a current diagnosis for this admission?: Yes Plan: Per Dr. Hurst. - Plan Summary Plan Summary: Will continue to follow. He has Milk of Mag ordered PRN for the constipation. I have encouraged him to use this. Consider Mucinex as well.
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
[2018-03-27] MEDS: POTASSIUM CHLORIDE 10 MEQ CAPSULE.ER PO SCH (10:48)
[2018-03-27] MEDS: SENNOSIDES/DOCUSATE 8.6-50 MG 1 EACH TABLET PO SCH ×2 (10:48→17:10)
[2018-03-27] MEDS: FUROSEMIDE INJ/PF 40 MG/4 ML SDV IV SCH ×2 (10:48→23:04)
[2018-03-27] MEDS: METOPROLOL TARTRATE 25 MG TABLET PO SCH ×2 (10:48→17:10)
[2018-03-27] MEDS: LEVOFLOXACIN 500 MG TABLET PO SCH (10:48)
[2018-03-27] MEDS: CHOLECALCIFEROL (D3) 1,000 UNIT TABLET PO SCH (10:48)
[2018-03-27] MEDS: TOLTERODINE TARTRATE 1 MG TABLET PO SCH (10:48)
[2018-03-27] MEDS: ASPIRIN 81 MG TABLET, ENT COATED PO SCH (10:48)
[2018-03-27] MEDS: BICALUTAMIDE 50 MG TABLET PO SCH (10:49)
[2018-03-27] MEDS: WARFARIN SODIUM 4 MG TABLET PO SCH (17:10)
[2018-03-27] MEDS: INSULIN GLARGINE,HUM.REC.ANLOG 300 UNIT/3 ML INSULN.PEN SUBCUT SCH (21:50)
[2018-03-27] MEDS: ATORVASTATIN CALCIUM 10 MG TABLET PO SCH (21:51)
[2018-03-28 05:03] LABS: ABSOLUTE BASOPHILS # (AUTO) 0.1 10^3/uL (0.0-0.2); ABSOLUTE EOSINOPHILS # (AUTO) 0.1 10^3/uL (0.0-0.6); ABSOLUTE LYMPHOCYTES (AUTO) 0.8 10^3/uL (0.5-4.7); ABSOLUTE MONOCYTES (AUTO) 0.6 10^3/uL (0.1-1.4); ABSOLUTE NEUT (AUTO) 4.4 10^3/uL (1.7-8.2); EOSINOPHILS % (AUTO) 1.4 % (0-6); HEMATOCRIT 27.9 % (37.9-51.0); HEMOGLOBIN 9.2 g/dL (13.5-17.0); MEAN CORPUSCULAR HEMOGLOBIN 25.5 pg (27.0-33.4); MEAN CORPUSCULAR HGB CONC 33.1 g/dL (32.0-36.0); MEAN CORPUSCULAR VOLUME 77 fl (80-97); MONOCYTES % (AUTO) 10.6 % (3-13); PLATELET COUNT 208 10^3/uL (150-450); RED BLOOD COUNT 3.61 10^6/uL (4.35-5.55); TOTAL CELLS COUNTED % (AUTO) 100 %; WHITE BLOOD COUNT 5.9 10^3/uL (4.0-10.5)
[2018-03-28 05:09] LABS: INTERNATIONAL RATION (INR) 1.82
[2018-03-28 05:21] LABS: ANION GAP 7 (5-19); BLOOD UREA NITROGEN 29 mg/dL (7-20); CARBON DIOXIDE 26 mmol/L (22-30); CHLORIDE 102 mmol/L (98-107); GLUCOSE 99 mg/dL (75-110); POTASSIUM 3.8 mmol/L (3.6-5.0); SODIUM 135.4 mmol/L (137-145)
[2018-03-28] MEDS: BENZONATATE 100 MG CAPSULE PO SCH ×3 (06:22→21:33)
[2018-03-28] MEDS: LEVOTHYROXINE SODIUM 0.1 MG TABLET PO SCH (06:22)
[2018-03-28] MEDS: AZTREONAM 2 GM in DEXTROSE 5%-WATER 100 ML IV SCH (06:22)
[2018-03-28] MEDS: LANSOPRAZOLE 15 MG TAB.RAP.DR PO SCH (06:22)
--- NOTE | 2018-03-28 08:15 | PDOC PROGRESS REPORT ---
Subjective Progress Note for:: 03/28/18 Subjective:: The patient states to feel better. He had significant amount of diureses. His legs are not swelling in the longer. He has walked around the room with physical therapy. Discussed the rehab. Reason For Visit: PNEUMONIA,BILATERAL PLEUAL EFFUSIONS Physical Exam Vital Signs: Temp Pulse Resp BP Pulse Ox 97.6 F 91 14 97/64 L 99 03/28/18 07:39 03/28/18 07:39 03/28/18 07:39 03/28/18 07:39 03/28/18 07:39 Pulse Oximeter Continuous Start: 03/23/18 16: 11 Freq: RTQ4 Status: Active Document 03/28/18 04:00 SFL (Rec: 03/28/18 04:32 SFL [email or web address]) Pulse Oximetry Assessment Oxygen Saturation (92-100) 97 Oxygen Flow Rate (L/min) 2.5 Oxygen Delivery Method Nasal Cannula Equipment Usage Equipment in Use Continuous SpO2 Machine # 8 Intake & Output 03/27/18 03/28/18 03/29/18 06:59 06:59 06:59 Intake Total 1217 936 Output Total 9 8100 Balance -808 -1469 Weight 84.1 kg 82.9 kg General appearance: PRESENT: mild distress Head exam: PRESENT: atraumatic Eye exam: PRESENT: conjunctiva pink Neck exam: PRESENT: carotid bruit. ABSENT: JVD Respiratory exam: PRESENT: crackles Cardiovascular exam: PRESENT: irregular rhythm, +S2 GI/Abdominal exam: PRESENT: normal bowel sounds, soft Extremities exam: PRESENT: pedal edema Musculoskeletal exam: PRESENT: tenderness Neurological exam: PRESENT: alert, awake Results Laboratory Results: 03/28/18 04:43 03/28/18 04:43 03/28/18 03/28/18 04:43 04:43 WBC 5.9 RBC 3.61 L Hgb 9.2 L Hct 27.9 L MCV 77 L MCH 25.5 L MCHC 33.1 RDW 22.0 H Plt Count 208 Seg Neutrophils % 74.0 Lymphocytes % 13.0 Monocytes % 10.6 Eosinophils % 1.4 Basophils % 1.0 Absolute Neutrophils 4.4 Absolute Lymphocytes 0.8 Absolute Monocytes 0.6 Absolute Eosinophils 0.1 Absolute Basophils 0.1 Sodium 135.4 L Potassium 3.8 Chloride 102 Carbon Dioxide 26 Anion Gap 7 BUN 29 H Creatinine 0.97 Est GFR ( Amer) > 60 Est GFR (Non-Af Amer) > 60 Glucose 99 Calcium 8.0 L Magnesium 2.0 03/23/18 03/24/18 03/24/18 18:30 00:35 06:25 CK-MB (CK-2) 0.83 0.62 0.64 Troponin I 0.027 0.027 0.022 NT-Pro-B Natriuret Pep 44503 H 03/25/18 03/26/18 04:18 05:14 CK-MB (CK-2) Troponin I NT-Pro-B Natriuret Pep 73539 H 02607 H Impressions: Venous Doppler Study 03/23/18 12:32 IMPRESSION: NO EVIDENCE OF DVT OR SVT IN THE LEFT LEG. Chest/Abdomen CTA 03/23/18 12:44 IMPRESSION: Interval increase in bilateral pleural effusion volumes as well as increased left lower lobe dense consolidation. No discrete pulmonary emboli are visualized. Inhomogeneous opacification of the left main pulmonary artery and left lower lobe pulmonary arteries is favored to be on the basis of mixing artifact. Chest X-Ray 03/24/18 08:00 IMPRESSION: Small right moderate left pleural effusion. Left lower lobe consolidation atelectasis versus pneumonia Interstitial edema with Ramiro lines Stable moderate to marked cardiomegaly Assessment & Plan - Diagnosis (1) Acute on chronic systolic CHF (congestive heart failure) Is this a current diagnosis for this admission?: Yes Plan: Much improved. 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 transplanted heart: [place] heart Associated angina: without angina Qualified Code(s): I25.810 - Atherosclerosis of coronary artery bypass graft(s) without angina pectoris Is this a current diagnosis for this admission?: Yes Plan: Stable continue current treatment (4) Chronic atrial fibrillation Is this a current diagnosis for this admission?: Yes Plan: We will continue current medications (5) Diabetes Qualifiers: Diabetes mellitus type: type 2 Diabetes mellitus complication status: without complication Is this a current diagnosis for this admission?: Yes Plan: We will adjust insulin (6) Do not resuscitate status Is this a current diagnosis for this admission?: Yes Plan: Continue current DNR status (7) Pleural effusion Is this a current diagnosis for this admission?: Yes (8) Prostate cancer metastatic to bone Is this a current diagnosis for this admission?: Yes Plan: Continue current treatment as recommended by the oncology (9) Healthcare associated bacterial pneumonia Is this a current diagnosis for this admission?: Yes
--- NOTE | 2018-03-28 09:30 | RADIOLOGY REPORT (SQ) ---
EXAM DESCRIPTION: CHEST 2 VIEWS COMPLETED DATE/TIME: 03/28/2018 9:01 am REASON FOR STUDY: Pleural effusion, CHF, possible pneumonia COMPARISON: Chest films 03/15/2018, 03/31/2018 CT chest 03/23/2018, 03/15/2018 EXAM PARAMETERS: NUMBER OF VIEWS: two views TECHNIQUE: Digital Frontal and Lateral radiographic views of the chest acquired. RADIATION DOSE: NA LIMITATIONS: none FINDINGS: LUNGS AND PLEURA: Small bilateral pleural effusions are present, decreased compared to . Persistent bibasilar airspace disease left greater than right atelectasis versus pneumonia. No pneumothorax MEDIASTINUM AND HILAR STRUCTURES: No masses or contour abnormalities. HEART AND VASCULAR STRUCTURES: Heart normal size. No evidence for failure. BONES: No acute findings. HARDWARE: Right jugular permanent central line tip in the superior vena cava OTHER: No other significant finding. IMPRESSION: Decrease in bilateral pleural effusions compared to 03/24/2018 Persistent bibasilar airspace disease likely atelectasis TECHNICAL DOCUMENTATION: JOB ID: [id number] [employer]- All Rights Reserved Reading location - IP/workstation name: [facility]
[2018-03-28] MEDS: TOLTERODINE TARTRATE 1 MG TABLET PO SCH (10:25)
[2018-03-28] MEDS: SENNOSIDES/DOCUSATE 8.6-50 MG 1 EACH TABLET PO SCH ×2 (10:25→17:18)
[2018-03-28] MEDS: CHOLECALCIFEROL (D3) 1,000 UNIT TABLET PO SCH (10:25)
[2018-03-28] MEDS: POTASSIUM CHLORIDE 10 MEQ CAPSULE.ER PO SCH (10:26)
[2018-03-28] MEDS: FUROSEMIDE 40 MG TABLET PO SCH ×2 (10:26→17:18)
[2018-03-28] MEDS: LEVOFLOXACIN 500 MG TABLET PO SCH (10:27)
[2018-03-28] MEDS: METOPROLOL TARTRATE 25 MG TABLET PO SCH ×2 (10:27→21:34)
[2018-03-28] MEDS: BICALUTAMIDE 50 MG TABLET PO SCH (10:27)
[2018-03-28] MEDS: ASPIRIN 81 MG TABLET, ENT COATED PO SCH (10:27)
[2018-03-28] MEDS: WARFARIN SODIUM 4 MG TABLET PO SCH (17:19)
[2018-03-28] MEDS: INSULIN GLARGINE,HUM.REC.ANLOG 300 UNIT/3 ML INSULN.PEN SUBCUT SCH (21:32)
[2018-03-28] MEDS: ATORVASTATIN CALCIUM 10 MG TABLET PO SCH (21:33)
[2018-03-29 04:51] LABS: INTERNATIONAL RATION (INR) 1.89; PROTHROMBIN TIME 22.6 SEC (11.4-15.4)
[2018-03-29 05:06] LABS: ANION GAP 11 (5-19); BLOOD UREA NITROGEN 31 mg/dL (7-20); CALCIUM 8.6 mg/dL (8.4-10.2); CARBON DIOXIDE 24 mmol/L (22-30); CHLORIDE 103 mmol/L (98-107); GLUCOSE 115 mg/dL (75-110); SODIUM 138.1 mmol/L (137-145)
[2018-03-29] MEDS: BENZONATATE 100 MG CAPSULE PO SCH ×2 (05:35→13:44)
[2018-03-29] MEDS: LANSOPRAZOLE 15 MG TAB.RAP.DR PO SCH (05:35)
[2018-03-29] MEDS: LEVOTHYROXINE SODIUM 0.1 MG TABLET PO SCH (05:35)
[2018-03-29] MEDS ORDERED: WARFARIN SODIUM 4 MG TABLET PO SCH (08:00)
--- NOTE | 2018-03-29 08:15 | PDOC PROGRESS REPORT ---
Subjective Progress Note for:: 03/29/18 Subjective:: Patient states that he is feeling better. He is slowly getting his strength back. His breathing has improved. He is hoping to be discharged today to Rehab facility. ROS: Cough improved. No ankle swelling. Good appetite. Reason For Visit: PNEUMONIA,BILATERAL PLEUAL EFFUSIONS Physical Exam Vital Signs: Temp Pulse Resp BP Pulse Ox 97.3 F 86 20 87/66 L 98 03/29/18 03:37 03/29/18 03:37 03/28/18 23:19 03/29/18 03:37 03/29/18 03:37 Pulse Oximeter Continuous Start: 03/23/18 16: 11 Freq: RTQ4 Status: Complete Document 03/28/18 09:01 HCR (Rec: 03/28/18 09:01 HCR [email or web address]) Pulse Oximetry Assessment Equipment Usage Equipment Discontinued Continuous SpO2 Machine # 8 Intake & Output 03/28/18 03/29/18 03/30/18 06:59 06:59 06:59 Intake Total 936 1208 Output Total 2400 175 Balance -1464 1033 Weight 82.9 kg 83.9 kg General appearance: PRESENT: mild distress Head exam: PRESENT: normocephalic Respiratory exam: PRESENT: clear to auscultation carmelo Cardiovascular exam: PRESENT: RRR Extremities exam: ABSENT: pedal edema Neurological exam: PRESENT: alert, awake, normal gait Psychiatric exam: PRESENT: appropriate affect Skin exam: PRESENT: normal color Results Laboratory Results: 03/28/18 04:43 03/29/18 04:32 03/29/18 04:32 Sodium 138.1 Potassium 4.0 Chloride 103 Carbon Dioxide 24 Anion Gap 11 BUN 31 H Creatinine 0.95 Est GFR ( Amer) > 60 Est GFR (Non-Af Amer) > 60 Glucose 115 H Calcium 8.6 03/23/18 03/24/18 03/24/18 18:30 00:35 06:25 CK-MB (CK-2) 0.83 0.62 0.64 Troponin I 0.027 0.027 0.022 NT-Pro-B Natriuret Pep 50711 H 03/25/18 03/26/18 04:18 05:14 CK-MB (CK-2) Troponin I NT-Pro-B Natriuret Pep 44338 H 60099 H Impressions: Venous Doppler Study 03/23/18 12:32 IMPRESSION: NO EVIDENCE OF DVT OR SVT IN THE LEFT LEG. Chest/Abdomen CTA 03/23/18 12:44 IMPRESSION: Interval increase in bilateral pleural effusion volumes as well as increased left lower lobe dense consolidation. No discrete pulmonary emboli are visualized. Inhomogeneous opacification of the left main pulmonary artery and left lower lobe pulmonary arteries is favored to be on the basis of mixing artifact. Chest X-Ray 03/28/18 00:00 IMPRESSION: Decrease in bilateral pleural effusions compared to 03/24/2018 Persistent bibasilar airspace disease likely atelectasis Assessment & Plan - Diagnosis (1) Prostate cancer metastatic to bone Is this a current diagnosis for this admission?: Yes Plan: Treatment on hold currently, but most recent scans showed good response to treatment. Plan to resume treatments after discharge. (2) Anticoagulated on Coumadin Is this a current diagnosis for this admission?: Yes Plan: I will increase dose today, due to interaction with antibiotics. Will need to monitor the level very closely over the next few weeks, as medications change. Goal INR 2-3. (3) Acute on chronic systolic CHF (congestive heart failure) Is this a current diagnosis for this admission?: Yes Plan: Per Dr. Hurst - Plan Summary Plan Summary: Will see again after discharge and resume chemotherapy.
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
[2018-03-29] MEDS: TOLTERODINE TARTRATE 1 MG TABLET PO SCH (10:28)
[2018-03-29] MEDS: LEVOFLOXACIN 500 MG TABLET PO SCH (10:28)
[2018-03-29] MEDS: CHOLECALCIFEROL (D3) 1,000 UNIT TABLET PO SCH (10:28)
[2018-03-29] MEDS: SENNOSIDES/DOCUSATE 8.6-50 MG 1 EACH TABLET PO SCH (10:28)
[2018-03-29] MEDS: FUROSEMIDE 40 MG TABLET PO SCH (10:29)
[2018-03-29] MEDS: METOPROLOL TARTRATE 25 MG TABLET PO SCH (10:29)
[2018-03-29] MEDS: ASPIRIN 81 MG TABLET, ENT COATED PO SCH (10:29)
[2018-03-29] MEDS: POTASSIUM CHLORIDE 10 MEQ CAPSULE.ER PO SCH (10:29)
[2018-03-29] MEDS: BICALUTAMIDE 50 MG TABLET PO SCH (10:30)
[2018-03-29 13:30] VITALS: BP 89/68
[2018-03-29] MEDS ORDERED: WARFARIN SODIUM 5 MG TABLET PO SCH (18:00)
== END 2018-03-29 16:19 | DRG 291 ==
LOC: ER 11:34 → EH 14:49 → 3W 16:29
PROVIDERS: ADMIT Emergency Medicine; ATTEND Internal Medicine
PROC: 5A09457 Assistance with Respiratory Ventilation, 24-96 Consecutive Hours, Continuous Positive Airway Pressure (ICD-10-PCS; principal; 2018-03-23)
PROC: 3E0F73Z Introduction of Anti-inflammatory into Respiratory Tract, Via Natural or Artificial Opening (ICD-10-PCS; 2018-03-23)
PROC: 3E02340 Introduction of Influenza Vaccine into Muscle, Percutaneous Approach (ICD-10-PCS; 2018-03-29)
DX: I11.0 Hypertensive heart disease with heart failure (principal); J18.9 Pneumonia, unspecified organism; D61.810 Antineoplastic chemotherapy induced pancytopenia; J96.21 Acute and chronic respiratory failure with hypoxia; C79.51 Secondary malignant neoplasm of bone; J44.0 Chronic obstructive pulmonary disease with (acute) lower respiratory infection; I25.810 Atherosclerosis of coronary artery bypass graft(s) without angina pectoris; I50.23 Acute on chronic systolic (congestive) heart failure; Z66 Do not resuscitate; I48.2 Chronic atrial fibrillation; E11.9 Type 2 diabetes mellitus without complications; C61 Malignant neoplasm of prostate; M19.90 Unspecified osteoarthritis, unspecified site; Z60.2 Problems related to living alone; T45.1X5A Adverse effect of antineoplastic and immunosuppressive drugs, initial encounter; E05.90 Thyrotoxicosis, unspecified without thyrotoxic crisis or storm; E78.00 Pure hypercholesterolemia, unspecified; I25.2 Old myocardial infarction; Z23 Encounter for immunization; Z79.899 Other long term (current) drug therapy; Z91.14 Patient's other noncompliance with medication regimen; Z91.11 Patient's noncompliance with dietary regimen; Z98.42 Cataract extraction status, left eye; Z98.41 Cataract extraction status, right eye; Z90.79 Acquired absence of other genital organ(s); Z79.01 Long term (current) use of anticoagulants; Z79.82 Long term (current) use of aspirin; Z79.4 Long term (current) use of insulin; Z83.3 Family history of diabetes mellitus; Z82.49 Family history of ischemic heart disease and other diseases of the circulatory system; Z88.0 Allergy status to penicillin; Z99.81 Dependence on supplemental oxygen
CPT/HCPCS: 36415; 51702; 71046; 71275; 80048; 80053; 81001; 82553; 82728; 82803; 82962; 83036; 83605; 83735; 83880; 84443; 84484; 85025; 85027; 85610; 87040; 87070; 87086; 87205; 90686; 93005; 93010; 93971; 94640; 94660; 94762; 96361; 96374; 99291; G8978-GP; G8979-GP; J1815; J1940; J2405; J3370; J3490; J7040; J7060; J7620; S0028

== ENCOUNTER 2018-06-04 01:51 | Inpatient (IN) | payer MEDICARE, OTHER ==
--- NOTE | 2018-06-04 02:57 | ER Document Report ---
ED General - General Chief Complaint: Shortness Of Breath Stated Complaint: SHORTNESS OF BREATH Time Seen by Provider: 06/04/18 02:34 Notes: 77-year-old male actively being treated for prostate cancer with atrial fibrillation, CHF, coronary artery disease, hypothyroidism presents to the emergency department for shortness of breath. He is normally on 2 L of oxygen at home. Per patient, his son was helping him get into his hospital bed around 12:30 AM and he elevated his legs to ease the swelling when patient became acutely short of breath and told him to sit him up. Patient remained short of breath and was brought into the emergency room. Of note, he was being treated by his hospice nurse earlier in the day about 4:30 PM and she gave him 2 puffs of albuterol for unknown reason to patient's son, [id number], or himself. Patient denies any history of COPD or asthma. Currently patient endorses dyspnea, hemoptysis, bilateral lower extremity swelling. Patient denies dizziness, lightheadedness, chest pain, abdominal pain, nausea, vomiting, diarrhea. He endorses that he does retain urine and it dribbles for extended periods of time when he urinates. TRAVEL OUTSIDE OF THE [place] IN LAST 30 DAYS: No - Related Data Allergies/Adverse Reactions: Penicillins Allergy (Mild, Verified 03/23/18 12:02) Rash Past Medical History - General Information source: Patient, Relative - Social History Smoking Status: Former Smoker Chew tobacco use (# tins/day): No Frequency of alcohol use: None Drug Abuse: None Family History: CAD, DM Patient has suicidal ideation: No Patient has homicidal ideation: No - Past Medical History Cardiac Medical History: Reports: Hx Atrial Fibrillation - Chronic atrial fibrillation, Hx Congestive Heart Failure, Hx Coronary Artery Disease, Hx Heart Attack - MA angioplastyx2, Hx Hypertension Denies: Hx Hypercholesterolemia Pulmonary Medical History: Reports: Hx COPD Denies: Hx Asthma, Hx Bronchitis, Hx Pneumonia Neurological Medical History: Denies: Hx Cerebrovascular Accident, Hx Seizures Endocrine Medical History: Reports: Hx Diabetes Mellitus Type 1, Hx Diabetes Mellitus Type 2, Hx Hyperthyroidism Renal/ Medical History: Denies: Hx Peritoneal Dialysis Malignancy Medical History: Reports Hx Bone Cancer GI Medical History: Denies: Hx Hepatitis, Hx Hiatal Hernia, Hx Ulcer Musculoskeletal Medical History: Reports Hx Arthritis Psychiatric Medical History: Denies: Hx Depression Infectious Medical History: Denies: Hx Hepatitis Past Surgical History: Reports: Hx Cardiac Surgery - angioplasty, Hx Carotid Endarterectomy, Hx Cholecystectomy, Hx Open Heart Surgery - ANGIOPLASTY 1993,1999, Hx Thyroid Surgery, Hx Urinary Tract Surgery - prostate, Other - Port-A-Cath placement. Denies: Hx Pacemaker - Immunizations Hx Diphtheria, Pertussis, Tetanus Vaccination: Yes Hx Pneumococcal Vaccination: 06/04/11 Review of Systems - Review of Systems Constitutional: See HPI EENT: No symptoms reported Cardiovascular: See HPI Respiratory: See HPI Gastrointestinal: See HPI Genitourinary: See HPI Male Genitourinary: No symptoms reported Musculoskeletal: No symptoms reported Skin: No symptoms reported Hematologic/Lymphatic: No symptoms reported Neurological/Psychological: No symptoms reported Physical Exam - Vital signs Vitals: Resp Pulse Ox 28 H 98 06/04/18 01:57 06/04/18 01:57 - Notes Notes: Reviewed vital signs and nursing note as charted by RN. CONSTITUTIONAL: Well-appearing, well-nourished, acting appropriately for age HEAD: Normocephalic, atraumatic, no swelling EYES: PERRL, Conjunctivae clear, no drainage, EOMI, no scleral icterus ENT: External ears without lesions, External auditory canal is patent, airway patent, mucous membranes dry NECK: Supple, no masses CARD: Regular rate and rhythm, no murmurs, no rubs, no gallops, capillary refill < 2 seconds, symmetric pulses RESP: Bilateral basilar wheezing, no rales, no rhonchi. Mild respiratory distress, normal chest excursion, no retractions, no stridor, no nasal flaring, no accessory muscle use. ABD/GI: Normal bowel sounds, distended, soft, non-tender, no rebound, no guarding, no palpable organomegaly EXT: Normal ROM in all joints, non-tender to palpation, no effusions, 3+ pitting edema BLE SKIN: Normal color for age and race, warm, dry, good turgor, purpuric areas noted over dorsal aspect of forearms. NEURO: No facial asymmetry, moves all extremities equally, motor and sensory function intact Course - Re-evaluation Re-evalutation: 06/04/18 03:01 Very pleasant 77-year-old male with active prostate cancer being treated with c hemotherapy, CHF, coronary artery disease, atrial fibrillation on Coumadin presents to the emergency department for shortness of breath that started at 12:30 AM this morning. Son was getting him into bed and elevating his extremities because they were swollen when he became acutely short of breath told him to sit him up and then he decided to come in. On exam patient was very pleasant was in mild respiratory distress of borderline tachypneic. He was on 3 L of oxygen and saturating in the mid to upper 90s. End expiratory wheezes noted in the bilateral bases. Patient is not in acute distress at this time. Chest x-ray ordered. Troponin and EKG ordered. Full set of labs to include PT/INR ordered. Pro-BNP ordered as well. 06/04/18 04:59 INR 10.5. Vitamin K 10 mg IV ordered, FFP 2 units ordered. Calcium 6.8. Calcium gluconate 2 g IV ordered. Chest x-ray showed evidence of interstitial edema. Plan to diurese with Lasix 80 mg IV. Patient has difficulty urinating and has retention, so De Paz catheter will be placed. Plan to obtain Hemoccult as well. 06/04/18 05:00 06/04/18 05:03 06/04/18 05:36 Hemoccult performed and positive. Patient has received vitamin K 10 mg IV and F FP is ready for infusion. 06/04/18 05:[address] Ayala, on-call hospitalist. Dr. Ayala has accepted the mikayla for full admission to [facility]. I have personally provided 60 minutes of critical care time exclusive of time spent on separate billable procedures for acute CHF exacerbation, respiratory distress, and management of elevated INR. Time includes review of laboratory data, radiology results, discussion with consultants, and monitoring for potential decompensation. Interventions were performed as documented above 06/04/18 06:06 06/04/18 06:13 - Vital Signs Vital signs: Temp Pulse Resp BP Pulse Ox 98.3 F 19 99/73 L 94 06/04/18 06:00 06/04/18 06:01 06/04/18 06:00 06/04/18 06:00 - Laboratory Result Diagrams: 06/04/18 02:35 06/04/18 02:35 Laboratory results interpreted by me: 06/04/18 06/04/18 06/04/18 02:35 02:35 02:35 RBC 3.54 L Hgb 8.1 L Hct 25.2 L MCV 71 L MCH 23.0 L RDW 21.8 H Seg Neuts % (Manual) 82 H PT 86.7 H* INR 10.41 H* Potassium 3.2 L BUN 29 H Glucose 139 H Calcium 6.8 L* Direct Bilirubin 0.7 H Alkaline Phosphatase 135 H NT-Pro-B Natriuret Pep Total Protein 4.8 L Albumin 2.3 L 06/04/18 02:35 RBC Hgb Hct MCV MCH RDW Seg Neuts % (Manual) PT INR Potassium BUN Glucose Calcium Direct Bilirubin Alkaline Phosphatase NT-Pro-B Natriuret Pep 39684 H Total Protein Albumin Discharge - Discharge Clinical Impression: Elevated INR, Respiratory distress CHF exacerbation Qualifiers: Heart failure type: unspecified Qualified Code(s): I50.9 - Heart failure, unspecified Condition: Stable Disposition: ADMITTED INPATIENT Admitting Provider: Hospitalist Unit Admitted: IMCU Referrals: GUILLE RESENDEZ DO [Primary Care Provider] - Follow up as needed
[2018-06-04 02:58] LABS: HEMATOCRIT 25.2 % (37.9-51.0); HEMOGLOBIN 8.1 g/dL (13.5-17.0); MEAN CORPUSCULAR HGB CONC 32.4 g/dL (32.0-36.0); MEAN CORPUSCULAR VOLUME 71 fl (80-97); PLATELET COUNT 177 10^3/uL (150-450); RED BLOOD COUNT 3.54 10^6/uL (4.35-5.55); RED CELL DISTRIBUTION WIDTH 21.8 % (11.5-14.0); WHITE BLOOD COUNT 8.4 10^3/uL (4.0-10.5)
[2018-06-04 03:10] LABS: ALANINE AMINOTRANSFERASE 26 U/L (21-72); ALBUMIN 2.3 g/dL (3.5-5.0); ALKALINE PHOSPHATASE 135 U/L (38-126); ANION GAP 8 (5-19); ASPARTATE AMINO TRANSFERASE 45 U/L (17-59); BILIRUBIN,DIRECT 0.7 mg/dL (0.0-0.4); BILIRUBIN,TOTAL 1.1 mg/dL (0.2-1.3); BLOOD UREA NITROGEN 29 mg/dL (7-20); CARBON DIOXIDE 27 mmol/L (22-30); CHLORIDE 103 mmol/L (98-107); GLUCOSE 139 mg/dL (75-110); POTASSIUM 3.2 mmol/L (3.6-5.0); SODIUM 138.4 mmol/L (137-145); TOTAL PROTEIN 4.8 g/dL (6.3-8.2)
[2018-06-04 03:20] LABS: CALCIUM 6.8 mg/dL (8.4-10.2)
[2018-06-04 03:23] LABS: ABSOLUTE LYMPHOCYTES# (MANUAL) 1.1 10^3/uL (0.5-4.7); ABSOLUTE MONOCYTES # (MANUAL) 0.4 10^3/uL (0.1-1.4); ABSOLUTE NEUTROPHILS# (MANUAL) 6.9 10^3/uL (1.7-8.2); BASOPHILS % (MANUAL) 0 % (0-2); EOSINOPHILS % (MANUAL) 0 % (0-6); LYMPHOCYTES % (MANUAL) 13 % (13-45); MONOCYTES % (MANUAL) 5 % (3-13); SEGMENTED NEUTROPHILS % (MAN) 82 % (42-78); TOTAL CELLS COUNTED 100
[2018-06-04 03:26] LABS: PROTHROMBIN TIME 86.7 SEC (11.4-15.4)
[2018-06-04 03:27] LABS: ACANTHOCYTES 2+; ANISOCYTOSIS 3+; INTERNATIONAL RATION (INR) 10.41; POIKILOCYTOSIS 3+; TOXIC GRANULATION 1+
[2018-06-04 03:28] LABS: OVALOCYTES 2+; PLATELET COMMENT ADEQUATE; SCHISTOCYTES 2+; TEAR DROP CELLS 1+
--- NOTE | 2018-06-04 03:29 | RADIOLOGY REPORT (SQ) ---
CLINICAL HISTORY: SOB COMPARISON: None. TECHNIQUE: XR CHEST 1 VIEW 06/04/2018 2:36 AM PUBLIC HEALTH TECHNICIAN FINDINGS: The heart is enlarged. There is moderate pulmonary edema. There are bilateral pleural effusions. There is no pneumothorax. There are no acute osseous findings. Right chest port catheter tip is in the mid SVC. IMPRESSION: Pulmonary edema with pleural effusions and cardiomegaly.
[2018-06-04] MEDS ORDERED: PHYTONADIONE INJ 10 MG/1 ML AMPULE IV ONE (03:30)
[2018-06-04] MEDS ORDERED: NORMAL SALINE 250 ML IV PRN ×2 (03:32)
[2018-06-04] MEDS ORDERED: CALCIUM GLUCONATE 2,222 MG in DEXTROSE 5%-WATER 100 ML IV ONE (03:33)
[2018-06-04] MEDS ORDERED: CALCIUM GLUCONATE 1000 MG/10 ML INJ IV ONE (04:22)
[2018-06-04] MEDS ORDERED: FUROSEMIDE INJ/PF 40 MG/4 ML SDV IV ONE (05:01)
[2018-06-04] MEDS ORDERED: LIDOCAINE 2% URO-JET 5 ML KIT MM ONE (05:13)
[2018-06-04] MEDS ORDERED: MAG HYDROX/AL HYDROX/SIMETH SUSP 30 ML UDCUP PO PRN (06:03)
[2018-06-04] MEDS ORDERED: ONDANSETRON HCL INJ/PF 4 MG/2 ML SDV IV PRN (06:03)
[2018-06-04] MEDS ORDERED: ONDANSETRON 4 MG TAB.RAPDIS PO PRN (06:03)
[2018-06-04] MEDS ORDERED: DIGOXIN INJ 0.5 MG/2 ML AMPULE IV ONE (06:03)
[2018-06-04] MEDS ORDERED: MAGNESIUM HYDROXIDE SUSP 30 ML UDCUP PO PRN (06:03)
[2018-06-04 07:29] LABS: CREATINE KINASE MB 1.88 ng/mL (<4.55); TROPONIN I 0.03 ng/mL
[2018-06-04 07:39] LABS: FREE T3 2.07 pg/mL (2.77-5.27); FREE T4 (FREE THYROXINE) 1.93 ng/dL (0.78-2.19)
[2018-06-04 09:16] LABS: CREATINE KINASE MB 1.75 ng/mL (<4.55); TROPONIN I 0.029 ng/mL
[2018-06-04] MEDS ORDERED: ALBUTEROL SULFATE HFA (90 MCG/PUFF) 200 PUFF/8.5 GM MDI IH PRN (09:48)
[2018-06-04] MEDS ORDERED: (PENDING PHARMACY ID) (Nitroglycerin [Nitromist] 1 SPRAY) SL PRN (10:17)
[2018-06-04] MEDS ORDERED: DOCUSATE SODIUM 100 MG CAPSULE PO PRN (10:17)
[2018-06-04] MEDS ORDERED: IBUPROFEN 800 MG TABLET PO PRN (10:17)
--- NOTE | 2018-06-04 10:17 | PDOC H&P ---
History of Present Illness Admission Date/PCP: 06/04/18 06:06 Dr. Hurst Patient complains of: Increasing shortness of breath and weakness History of Present Illness: MAGALIE ABAD is a 77 year old male who was discharged from [facility] in March and spent [facility] facility. He just saw Dr. Hurst several weeks ago. He notes that his breathing has deteriorated slowly but yesterday when his son put him in bed he became acutely short of breath. It prompted a call to EMS. He was found to be short of breath and had pitting edema to the hips. The patient also reports recent hemoptysis. He does have chronic systolic heart failure as well as chronic atrial fibrillation with a history of coronary disease and diabetes. He received chemotherapy for metastatic prostate cancer recently and felt quite decompensate d after the treatment. He will be admitted by the hospitalist service. We will increase his diuretic therapy. We will monitor his serum potassium for replacement. His INR was greater than 10. We will hold his warfarin and check his INR daily. Resume warfarin when INR is therapeutic. INR goal is 2.0-3.0. Past Medical History Cardiac Medical History: Reports: Atrial Fibrillation - Chronic atrial fibrillation, Congestive Heart Failure, Coronary Artery Disease, Myocardial Infarction - VA angioplastyx2, Hypertension Denies: Hyperlipidema Pulmonary Medical History: Reports: Chronic Obstructive Pulmonary Disease (COPD) Denies: Asthma, Bronchitis, Pneumonia Neurological Medical History: Denies: Seizures Endocrine Medical History: Reports: Diabetes Mellitus Type 1, Diabetes Mellitus Type 2, Hyperthyroidism Malignancy Medical History: Reports: Bone Cancer GI Medical History: Denies: Hepatitis, Hiatal Hernia Musculoskeltal Medical History: Reports: Arthritis Psychiatric Medical History: Reports: Depression - Holiday's: passed 2012 Hematology: Denies: Anemia, Sickle Cell Disease Past Surgical History Past Surgical History: Reports: Carotid Endarterectomy, Cholecystectomy, Other - Port-A-Cath placement Denies: Pacemaker Social History Information Source: Patient, [facility] Records Lives with: Alone Smoking Status: Former Smoker Last Time Smoked: 1993 Frequency of Alcohol Use: Occasional Hx Recreational Drug Use: No Drugs: None Hx Prescription Drug Abuse: No - Advance Directive Resuscitation Status: Do Not Resuscitate Surrogate healthcare decision maker:: He does have a completed healthcare proxy. His family will be bringing it in. It should be on record from his admission in March. His son, I believe, is the decision maker of record. Family History Family History: CAD, DM Parental Family History Reviewed: Yes Children Family History Reviewed: Yes Sibling(s) Family History Reviewed.: Yes Medication/Allergy Home Medications: Acetaminophen [Tylenol 325 mg Tablet] 975 mg PO Q4HP PRN 06/04/18 Albuterol Sulfate [Proair HFA Inhalation Aerosol 8.5 gm MDI] 2 puff IH Q4HP PRN 06/04/18 Aspirin [Adult Low Dose Aspirin EC] 81 mg PO DAILY 06/04/18 Atorvastatin Calcium [Lipitor 20 mg Tablet] 20 mg PO DAILY 06/04/18 Chlorhexidine Gluconate [Peridex] 5 ml PO TID 06/04/18 Cholecalciferol (Vitamin D3) [Vitamin D3 1000 Unit Tablet] 2,000 unit PO DAILY 06/04/18 Docusate Sodium [Colace 100 mg Capsule] 100 mg PO DAILYP PRN 06/04/18 Dronabinol [Marinol] 5 mg PO BID 06/04/18 Fluticasone/Salmeterol [Advair 250-50 Diskus 14 Dose/Diskus] 1 puff IH BID 06/04/18 Furosemide [Lasix 40 mg Tablet] 40 mg PO BID 06/04/18 Ibuprofen [Motrin 800 mg Tablet] 800 mg PO QIDP PRN 06/04/18 Insulin Glargine,Hum.rec.anlog [Lantus Insulin 100 Unit/mL] 10 units SQ QHS 06/04/18 Insulin Lispro [Humalog Insulin (Lispro) 100 unit/mL] 0 units SQ .PERSLIDINGSCALE 06/04/18 Levothyroxine Sodium 200 mcg PO Q6AM 06/04/18 Melatonin/Pyridoxine HCl (B6) [Melatonin 3 mg Tablet] 1 tab PO QPM 06/04/18 Metoprolol Succinate [Toprol Xl 25 mg Tab.sr] 12.5 mg PO DAILY 06/04/18 Nitroglycerin [Nitromist] 1 spray SL Q5MP PRN 06/04/18 Omeprazole 20 mg PO QPM 06/04/18 Tolterodine Tartrate [Detrol LA] 4 mg PO DAILY 06/04/18 Warfarin Sodium [Coumadin 5 mg Tablet] 10 mg PO MOWEFR 06/04/18 Warfarin Sodium [Coumadin 7.5 mg Tablet] 7.5 mg PO SUTUTHSA 06/04/18 Allergies/Adverse Reactions: Penicillins Allergy (Mild, Verified 03/23/18 12:02) Rash Review of Systems Constitutional: PRESENT: as per HPI Eyes: ABSENT: visual disturbances Ears: ABSENT: hearing changes Nose, Mouth, and Throat: PRESENT: other - Dry mouth Cardiovascular: PRESENT: dyspnea on exertion, edema, orthropnea Respiratory: PRESENT: cough, hemoptysis Gastrointestinal: PRESENT: heartburn. ABSENT: dysphagia, hematemesis Genitourinary: ABSENT: difficulty urinating, hematuria Musculoskeletal: PRESENT: muscle weakness Integumentary: ABSENT: diaphoresis, erythema, pruritus Neurological: PRESENT: abnormal gait, frequent falls Psychiatric: ABSENT: anxiety, depression Endocrine: ABSENT: cold intolerance, heat intolerance Hematologic/Lymphatic: PRESENT: other - Hemoptysis as above. ABSENT: easy bleeding Allergic/Immunologic: ABSENT: seasonal rhinorrhea Physical Exam Vital Signs: Temp Pulse Resp BP Pulse Ox 97.4 F 87 28 H 127/90 H 94 06/04/18 08:36 06/04/18 08:36 06/04/18 08:36 06/04/18 08:36 06/04/18 08:36 Intake & Output 06/03/18 06/04/18 06/05/18 06:59 06:59 06:59 Intake Total 199 222 Balance 199 222 Weight 79.379 kg 82.7 kg General appearance: PRESENT: cooperative, mild distress, well-developed Head exam: PRESENT: normocephalic Eye exam: PRESENT: conjunctiva pale. ABSENT: periorbital swelling Ear exam: PRESENT: normal external ear exam Mouth exam: PRESENT: dry mucosa Teeth exam: PRESENT: edentulous Throat exam: ABSENT: post pharyngeal erythema, tonsillar exudate Neck exam: ABSENT: carotid bruit, lymphadenopathy Respiratory exam: PRESENT: rales - Left base, symmetrical. ABSENT: chest wall tenderness, rhonchi, unlabored, wheezes Cardiovascular exam: PRESENT: irregular rhythm Pulses: PRESENT: +1 pedal pulses bilateral GI/Abdominal exam: PRESENT: normal bowel sounds, soft. ABSENT: tenderness Rectal exam: PRESENT: deferred Extremities exam: PRESENT: +2 edema - To the pelvis. ABSENT: calf tenderness Neurological exam: PRESENT: alert, awake, oriented to person, oriented to place, oriented to time, oriented to situation, CN II-XII grossly intact Psychiatric exam: PRESENT: appropriate affect, normal mood. ABSENT: agitated, anxious Focused psych exam: ABSENT: restlessness Results Laboratory Results: 06/04/18 02:35 06/04/18 02:35 06/04/18 06/04/18 06/04/18 02:35 02:35 02:35 WBC 8.4 RBC 3.54 L Hgb 8.1 L Hct 25.2 L MCV 71 L MCH 23.0 L MCHC 32.4 RDW 21.8 H Plt Count 177 Seg Neutrophils % Not Reportable Lymphocytes % Not Reportable Monocytes % Not Reportable Eosinophils % Not Reportable Basophils % Not Reportable Absolute Neutrophils Not Reportable Absolute Lymphocytes Not Reportable Absolute Monocytes Not Reportable Absolute Eosinophils Not Reportable Absolute Basophils Not Reportable Sodium 138.4 Potassium 3.2 L Chloride 103 Carbon Dioxide 27 Anion Gap 8 BUN 29 H Creatinine 0.91 Est GFR ( Amer) > 60 Est GFR (Non-Af Amer) > 60 Glucose 139 H Calcium 6.8 L* Total Bilirubin 1.1 AST 45 ALT 26 Alkaline Phosphatase 135 H Total Protein 4.8 L Albumin 2.3 L Free T4 1.93 Free T3 pg/mL 2.07 L Blood Type 06/04/18 04:00 WBC RBC Hgb Hct MCV MCH MCHC RDW Plt Count Seg Neutrophils % Lymphocytes % Monocytes % Eosinophils % Basophils % Absolute Neutrophils Absolute Lymphocytes Absolute Monocytes Absolute Eosinophils Absolute Basophils Sodium Potassium Chloride Carbon Dioxide Anion Gap BUN Creatinine Est GFR ( Amer) Est GFR (Non-Af Amer) Glucose Calcium Total Bilirubin AST ALT Alkaline Phosphatase Total Protein Albumin Free T4 Free T3 pg/mL Blood Type AB POSITIVE 06/04/18 06/04/18 06/04/18 02:35 02:35 02:35 Creatine Kinase 89 CK-MB (CK-2) 1.88 Troponin I 0.030 NT-Pro-B Natriuret Pep 13505 H 06/04/18 06/04/18 08:29 08:29 Creatine Kinase 82 CK-MB (CK-2) 1.75 Troponin I 0.029 NT-Pro-B Natriuret Pep Impressions: Chest X-Ray 06/04/18 02:36 IMPRESSION: Pulmonary edema with pleural effusions and cardiomegaly. Assessment & Plan - Diagnosis (1) Acute on chronic systolic CHF (congestive heart failure) Is this a current diagnosis for this admission?: Yes Plan: I will increase his furosemide and supplement potassium as indicated. He is already on metoprolol. He is not on an ILEANA inhibitor. An echocardiogram from 2017 suggested an ejection fraction in the 35-40% range. A new echocardiogram is ordered for this admission. He does follow with Dr. Hurst regularly. (2) Chronic anticoagulation Is this a current diagnosis for this admission?: Yes Plan: The INR was greater than 10. We will hold his warfarin for the time being. We will monitor the hemoptysis. It should resolve spontaneously. (3) Hemoptysis Is this a current diagnosis for this admission?: Yes Plan: As above (4) Diabetes mellitus type 2 in nonobese Is this a current diagnosis for this admission?: Yes Plan: Resume Lantus with sliding scale coverage. The patient actually states that he has not needed much insulin and so I may begin with sliding scale only and then add back his Lantus. (5) Chronic atrial fibrillation Is this a current diagnosis for this admission?: Yes Plan: Continue metoprolol (6) Prostate cancer metastatic to bone Is this a current diagnosis for this admission?: Yes Plan: He just had a chemotherapy treatment several weeks ago. He stated that it caused significant weakness. He was unable to ambulate. He no longer takes Casodex every day. (7) Do not resuscitate status Is this a current diagnosis for this admission?: Yes Plan: This is consistent with previous hospitalizations. Family will be bringing in his completed healthcare proxy. - Time Time Spent: 50 to 70 Minutes Medications reviewed and adjusted accordingly: Yes - Inpatient Certification Medical Necessity: Failure to Improve With Outpatient Therapy, Significant Comorbidiites Make Outpatient Treatment Too Risky, Need For Continuous Telemetry Monitoring, Risk of Complication if Not Cared For in Hospital Post Hospital Care: D/C Cyber O[employer] Planner Documentation
[2018-06-04] MEDS: FAMOTIDINE 20 MG TABLET PO SCH ×2 (10:22→22:05)
[2018-06-04] MEDS: DOCUSATE SODIUM 100 MG CAPSULE PO SCH (10:22)
[2018-06-04] MEDS: LISINOPRIL 5 MG TABLET PO SCH (10:22)
[2018-06-04] MEDS: METOPROLOL SUCCINATE 25 MG TAB.SR.24H PO SCH (10:22)
[2018-06-04] MEDS: ASPIRIN 81 MG TABLET, ENT COATED PO SCH ×2 (10:22→15:06)
[2018-06-04] MEDS ORDERED: INSULIN LISPRO 100 UNIT/ML 3 ML VIAL SUBCUT PRN (10:24)
[2018-06-04] MEDS ORDERED: GLUCAGON,HUMAN RECOMB 1 MG INJ IM PRN (10:24)
[2018-06-04] MEDS ORDERED: DEXTROSE 50%-WATER 25 GM/50 ML DISP.SYRIN IV PRN ×2 (10:24)
[2018-06-04] MEDS ORDERED: DEXTROSE 40% GEL 15 GM TUBE PO PRN ×2 (10:24)
[2018-06-04] MEDS ORDERED: NITROGLYCERIN 0.4 MG/TAB 25 TAB/BOTTLE SL PRN (11:55)
[2018-06-04] MEDS: POTASSIUM CHLORIDE 10 MEQ CAPSULE.ER PO SCH ×2 (12:04→22:04)
[2018-06-04] MEDS: FUROSEMIDE INJ/PF 40 MG/4 ML SDV IV SCH ×2 (12:04→22:04)
[2018-06-04] MEDS ORDERED: CHLORHEXIDINE GLUCONATE 0.12% ORAL RINSE 15 ML UDC PO SCH (14:00)
--- NOTE | 2018-06-04 14:20 | EKG REPORT ---
SEVERITY:- ABNORMAL ECG - ATRIAL FIBRILLATION VENTRICULAR PREMATURE COMPLEX RIGHT BUNDLE BRANCH BLOCK INFERIOR INFARCT, OLD : Confirmed by: Lamar Castro MD 04-Jun-2018 14:19:26
[2018-06-04] MEDS: FLUTICASONE/SALMETEROL DISKUS 250-50 MCG/DOSE IH SCH ×2 (15:22→22:05)
[2018-06-04 15:35] LABS: INTERNATIONAL RATION (INR) 1.93
[2018-06-04 15:44] LABS: CREATINE KINASE MB 1.54 ng/mL (<4.55); TROPONIN I 0.024 ng/mL
[2018-06-04 16:57] LABS: ANION GAP 8 (5-19); BLOOD UREA NITROGEN 24 mg/dL (7-20); CALCIUM 7.4 mg/dL (8.4-10.2); CARBON DIOXIDE 26 mmol/L (22-30); CHLORIDE 101 mmol/L (98-107); GLUCOSE 145 mg/dL (75-110); POTASSIUM 3.3 mmol/L (3.6-5.0); SODIUM 135.1 mmol/L (137-145)
[2018-06-04] MEDS: SODIUM CHLORIDE NASAL SPRAY 44 ML NASL PRN ×2 (17:28→22:57)
[2018-06-04] MEDS: DRONABINOL 2.5 MG CAPSULE PO SCH (17:34)
[2018-06-04] MEDS: CHLORHEXIDINE GLUCONATE 0.12% ORAL RINSE 15 ML UDC PO SCH (17:35)
[2018-06-04] MEDS ORDERED: (PENDING PHARMACY ID) (Melatonin/Pyridoxine Hcl (B6) [Melatonin 3 Mg Tablet] 1 TAB) PO SCH (18:00)
[2018-06-04] MEDS ORDERED: (PENDING PHARMACY ID) (Dronabinol [Marinol] 5 MG) PO SCH (18:00)
[2018-06-04] MEDS: MELATONIN 3 MG TABLET PO SCH (22:05)
[2018-06-04] MEDS: TOLTERODINE TARTRATE 1 MG TABLET PO SCH (22:05)
[2018-06-04 23:10] LABS: INTERNATIONAL RATION (INR) 1.68; PROTHROMBIN TIME 20.6 SEC (11.4-15.4)
[2018-06-04 23:42] LABS: CREATINE KINASE MB 1.33 ng/mL (<4.55); TROPONIN I 0.027 ng/mL
[2018-06-05] MEDS: SODIUM CHLORIDE NASAL SPRAY 44 ML NASL PRN ×2 (03:43→17:51)
[2018-06-05] MEDS: LEVOTHYROXINE SODIUM 0.1 MG TABLET PO SCH (05:43)
[2018-06-05] MEDS: LANSOPRAZOLE 15 MG TAB.RAP.DR PO SCH ×2 (05:43→17:45)
[2018-06-05] MEDS ORDERED: (PENDING PHARMACY ID) (Levothyroxine Sodium [Levothyroxine Sodium] 200 MCG) PO SCH (06:00)
[2018-06-05] MEDS: CHLORHEXIDINE GLUCONATE 0.12% ORAL RINSE 15 ML UDC PO SCH ×3 (09:53→17:45)
[2018-06-05] MEDS: ASPIRIN 81 MG TABLET, ENT COATED PO SCH ×2 (09:55→09:57)
[2018-06-05] MEDS: CHOLECALCIFEROL (D3) 1,000 UNIT TABLET PO SCH (09:55)
[2018-06-05] MEDS: LISINOPRIL 5 MG TABLET PO SCH (09:55)
[2018-06-05] MEDS: ATORVASTATIN CALCIUM 20 MG TABLET PO SCH (09:55)
[2018-06-05] MEDS: POTASSIUM CHLORIDE 10 MEQ CAPSULE.ER PO SCH ×2 (09:55→22:09)
[2018-06-05] MEDS: DOCUSATE SODIUM 100 MG CAPSULE PO SCH (09:55)
[2018-06-05] MEDS: DRONABINOL 2.5 MG CAPSULE PO SCH ×2 (09:56→17:45)
[2018-06-05] MEDS: FLUTICASONE/SALMETEROL DISKUS 250-50 MCG/DOSE IH SCH ×2 (09:56→22:10)
[2018-06-05] MEDS: FAMOTIDINE 20 MG TABLET PO SCH ×2 (09:56→22:10)
[2018-06-05] MEDS ORDERED: (PENDING PHARMACY ID) (Tolterodine Tartrate [Detrol La] 4 MG) PO SCH (10:00)
[2018-06-05] MEDS: FUROSEMIDE INJ/PF 40 MG/4 ML SDV IV SCH ×2 (10:04→22:09)
[2018-06-05] MEDS: METOPROLOL SUCCINATE 25 MG TAB.SR.24H PO SCH (12:22)
[2018-06-05 14:31] LABS: INTERNATIONAL RATION (INR) 1.81; PROTHROMBIN TIME 21.9 SEC (11.4-15.4)
[2018-06-05 14:42] LABS: HEMATOCRIT 26.1 % (37.9-51.0); HEMOGLOBIN 8.4 g/dL (13.5-17.0); MEAN CORPUSCULAR HGB CONC 32.2 g/dL (32.0-36.0); MEAN CORPUSCULAR VOLUME 71 fl (80-97); PLATELET COUNT 207 10^3/uL (150-450); RED BLOOD COUNT 3.66 10^6/uL (4.35-5.55); RED CELL DISTRIBUTION WIDTH 21.5 % (11.5-14.0); WHITE BLOOD COUNT 8.2 10^3/uL (4.0-10.5)
[2018-06-05] MEDS: TOLTERODINE TARTRATE 1 MG TABLET PO SCH ×2 (14:56→22:10)
[2018-06-05 15:00] LABS: ANION GAP 9 (5-19); BLOOD UREA NITROGEN 28 mg/dL (7-20); CALCIUM 7.9 mg/dL (8.4-10.2); CARBON DIOXIDE 28 mmol/L (22-30); CHLORIDE 99 mmol/L (98-107); DIGOXIN 0.47 ng/mL (0.8-2.0); GLUCOSE 104 mg/dL (75-110); POTASSIUM 3.9 mmol/L (3.6-5.0)
[2018-06-05 15:35] LABS: ABSOLUTE LYMPHOCYTES# (MANUAL) 1.1 10^3/uL (0.5-4.7); ABSOLUTE MONOCYTES # (MANUAL) 0.7 10^3/uL (0.1-1.4); ABSOLUTE NEUTROPHILS# (MANUAL) 6.4 10^3/uL (1.7-8.2); ANISOCYTOSIS 2+; BASOPHILS % (MANUAL) 0 % (0-2); EOSINOPHILS % (MANUAL) 0 % (0-6); HYPERSEGMENTED NEUTROPHILS PRESENT; HYPOCHROMASIA 1+; LYMPHOCYTES % (MANUAL) 13 % (13-45); MONOCYTES % (MANUAL) 9 % (3-13); NUCLEATED RED BLOOD CELLS 1 /100 WBC (0); PLATELET COMMENT ADEQUATE; PLATELET GIANT PRESENT; PLATELET LARGE PRESENT; POLYCHROMASIA 1+; SEGMENTED NEUTROPHILS % (MAN) 78 % (42-78); TOTAL CELLS COUNTED 100; TOXIC GRANULATION SLIGHT
[2018-06-05 15:36] LABS: ACANTHOCYTES SLIGHT; BURR CELLS SLIGHT; OVALOCYTES 2+; POIKILOCYTOSIS 2+; SCHISTOCYTES SLIGHT
--- NOTE | 2018-06-05 18:59 | PDOC PROGRESS REPORT ---
Subjective Progress Note for:: 06/05/18 Subjective:: Patient does report feeling better today. His breathing is easier today. He is still having hemoptysis and hematuria. Reason For Visit: HEART FAILURE Physical Exam Vital Signs: Temp Pulse Resp BP Pulse Ox 97.4 F 81 16 97/69 L 100 06/05/18 15:26 06/05/18 15:26 06/05/18 15:26 06/05/18 15:26 06/05/18 15:26 Intake & Output 06/04/18 06/05/18 06/06/18 06:59 06:59 06:59 Intake Total 536 858 9712 Output Total 1025 550 Balance 199 -203 1362 Weight 79.379 kg 85.1 kg General appearance: PRESENT: no acute distress, cooperative, well-developed Head exam: PRESENT: normocephalic Eye exam: PRESENT: conjunctiva pink Ear exam: PRESENT: normal external ear exam Mouth exam: PRESENT: dry mucosa, tongue midline Teeth exam: PRESENT: poor dentation Respiratory exam: PRESENT: rales - Minimal left base, symmetrical, unlabored. ABSENT: rhonchi, wheezes Cardiovascular exam: PRESENT: irregular rhythm, +S1, +S2 GI/Abdominal exam: PRESENT: normal bowel sounds, soft. ABSENT: distended, tenderness Extremities exam: PRESENT: +2 edema Neurological exam: PRESENT: alert, awake, oriented to person, oriented to place, oriented to time, oriented to situation, CN II-XII grossly intact Psychiatric exam: PRESENT: flat affect. ABSENT: agitated, anxious Focused psych exam: ABSENT: restlessness Skin exam: PRESENT: pallor Results Laboratory Results: 06/05/18 14:02 06/05/18 14:02 06/05/18 06/05/18 06/05/18 14:02 14:02 14:02 WBC 8.2 RBC 3.66 L Hgb 8.4 L Hct 26.1 L MCV 71 L MCH 23.0 L MCHC 32.2 RDW 21.5 H Plt Count 207 Seg Neutrophils % Not Reportable Lymphocytes % Not Reportable Monocytes % Not Reportable Eosinophils % Not Reportable Basophils % Not Reportable Absolute Neutrophils Not Reportable Absolute Lymphocytes Not Reportable Absolute Monocytes Not Reportable Absolute Eosinophils Not Reportable Absolute Basophils Not Reportable Sodium 136.0 L Potassium 3.9 Chloride 99 Carbon Dioxide 28 Anion Gap 9 BUN 28 H Creatinine 0.94 Est GFR ( Amer) > 60 Est GFR (Non-Af Amer) > 60 Glucose 104 Calcium 7.9 L Magnesium 1.7 TSH 2.34 06/04/18 06/04/18 06/04/18 02:35 02:35 02:35 Creatine Kinase 89 CK-MB (CK-2) 1.88 Troponin I 0.030 NT-Pro-B Natriuret Pep 89762 H 06/04/18 06/04/18 06/04/18 08:29 08:29 14:40 Creatine Kinase 82 86 CK-MB (CK-2) 1.75 Troponin I 0.029 NT-Pro-B Natriuret Pep 06/04/18 06/04/18 06/04/18 14:40 22:52 22:52 Creatine Kinase 76 CK-MB (CK-2) 1.54 1.33 Troponin I 0.024 0.027 NT-Pro-B Natriuret Pep Impressions: Chest X-Ray 06/04/18 02:36 IMPRESSION: Pulmonary edema with pleural effusions and cardiomegaly. Assessment & Plan - Diagnosis (1) Acute on chronic systolic CHF (congestive heart failure) Is this a current diagnosis for this admission?: Yes Plan: Continue diuresis with 40 mg of furosemide IV twice daily. I am hesitant to increase the dose because of his borderline blood pressure. Clinically he certainly feels more comfortable with his breathing. (2) Chronic anticoagulation Is this a current diagnosis for this admission?: Yes Plan: INR is back in the therapeutic range. He did receive vitamin K and his warfarin has been held. Unfortunately he still having hemoptysis and hematuria. I will not resume his warfarin yet. (3) Hemoptysis Is this a current diagnosis for this admission?: Yes Plan: Still with hemoptysis as noted above. Currently on aspirin therapy. I will continue this at this time due to his history of coronary disease. (4) Diabetes mellitus type 2 in nonobese Is this a current diagnosis for this admission?: Yes Plan: Continue current regimen. Fingerstick glucoses are remaining under 200. (5) Chronic atrial fibrillation Is this a current diagnosis for this admission?: Yes Plan: Continue metoprolol. Anticoagulate when bleeding risk decreases. (6) Prostate cancer metastatic to bone Is this a current diagnosis for this admission?: Yes Plan: No acute intervention during this hospitalization. (7) Do not resuscitate status Is this a current diagnosis for this admission?: Yes - Time Time Spent with patient: 15-24 minutes Medications reviewed and adjusted accordingly: Yes Anticipated discharge: Home
[2018-06-05] MEDS: MELATONIN 3 MG TABLET PO SCH (22:10)
[2018-06-05 22:47] LABS: INTERNATIONAL RATION (INR) 2.01; PROTHROMBIN TIME 23.7 SEC (11.4-15.4)
[2018-06-06 05:02] LABS: HEMATOCRIT 27.2 % (37.9-51.0); HEMOGLOBIN 8.9 g/dL (13.5-17.0); MEAN CORPUSCULAR HEMOGLOBIN 23.4 pg (27.0-33.4); MEAN CORPUSCULAR HGB CONC 32.6 g/dL (32.0-36.0); MEAN CORPUSCULAR VOLUME 72 fl (80-97); PLATELET COUNT 219 10^3/uL (150-450); RED BLOOD COUNT 3.79 10^6/uL (4.35-5.55); RED CELL DISTRIBUTION WIDTH 22.2 % (11.5-14.0); WHITE BLOOD COUNT 10.2 10^3/uL (4.0-10.5)
[2018-06-06 05:26] LABS: ABSOLUTE LYMPHOCYTES# (MANUAL) 1.1 10^3/uL (0.5-4.7); ABSOLUTE MONOCYTES # (MANUAL) 0.5 10^3/uL (0.1-1.4); ABSOLUTE NEUTROPHILS# (MANUAL) 8.6 10^3/uL (1.7-8.2); ANION GAP 11 (5-19); ANISOCYTOSIS 3+; BASOPHILS % (MANUAL) 0 % (0-2); BLOOD UREA NITROGEN 30 mg/dL (7-20); CALCIUM 8.2 mg/dL (8.4-10.2); CARBON DIOXIDE 26 mmol/L (22-30); CHLORIDE 100 mmol/L (98-107); DIGOXIN 0.43 ng/mL (0.8-2.0); EOSINOPHILS % (MANUAL) 0 % (0-6); GLUCOSE 127 mg/dL (75-110); LYMPHOCYTES % (MANUAL) 11 % (13-45); MONOCYTES % (MANUAL) 5 % (3-13); NUCLEATED RED BLOOD CELLS 1 /100 WBC (0); POTASSIUM 4.8 mmol/L (3.6-5.0); SEGMENTED NEUTROPHILS % (MAN) 84 % (42-78); SODIUM 136.6 mmol/L (137-145); TOTAL CELLS COUNTED 100; TOXIC GRANULATION 1+
[2018-06-06 05:27] LABS: BURR CELLS 1+; PLATELET COMMENT ADEQUATE; PLATELET LARGE PRESENT; POIKILOCYTOSIS 1+; POLYCHROMASIA 1+; SCHISTOCYTES 1+
[2018-06-06] MEDS: LEVOTHYROXINE SODIUM 0.1 MG TABLET PO SCH (06:35)
[2018-06-06] MEDS: POTASSIUM CHLORIDE 10 MEQ CAPSULE.ER PO SCH ×2 (09:58→21:51)
[2018-06-06] MEDS: ASPIRIN 81 MG TABLET, ENT COATED PO SCH ×2 (09:58→10:03)
[2018-06-06] MEDS: TOLTERODINE TARTRATE 1 MG TABLET PO SCH ×2 (09:58→21:50)
[2018-06-06] MEDS: DOCUSATE SODIUM 100 MG CAPSULE PO SCH (09:58)
[2018-06-06] MEDS: ATORVASTATIN CALCIUM 20 MG TABLET PO SCH (09:59)
[2018-06-06] MEDS: DRONABINOL 2.5 MG CAPSULE PO SCH ×2 (09:59→17:02)
[2018-06-06] MEDS: FAMOTIDINE 20 MG TABLET PO SCH ×2 (10:00→21:51)
[2018-06-06] MEDS: CHLORHEXIDINE GLUCONATE 0.12% ORAL RINSE 15 ML UDC PO SCH ×3 (10:00→17:01)
[2018-06-06] MEDS: METOPROLOL SUCCINATE 25 MG TAB.SR.24H PO SCH (10:01)
[2018-06-06] MEDS: CHOLECALCIFEROL (D3) 1,000 UNIT TABLET PO SCH (10:01)
[2018-06-06] MEDS: FLUTICASONE/SALMETEROL DISKUS 250-50 MCG/DOSE IH SCH ×2 (10:02→21:51)
[2018-06-06] MEDS: FUROSEMIDE INJ/PF 40 MG/4 ML SDV IV SCH ×2 (10:03→21:49)
[2018-06-06] MEDS: SODIUM CHLORIDE NASAL SPRAY 44 ML NASL PRN (10:13)
[2018-06-06 12:08] LABS: PROTHROMBIN TIME 27.3 SEC (11.4-15.4)
--- NOTE | 2018-06-06 13:03 | Physician Advisory Note ---
Physician Advisor ProgressNote .: Pursuant to the plan for [facility], I have reviewed the medical record for this patient. Physician Advisor Statement: Please consider documenting, if you agree: 1. "Chronic hypoxemic respiratory failure, on 2L O2 at baseline" Thanks! CK
[2018-06-06 13:35] LABS: PATH REVIEW PATHOLOGIST REVIEWED
[2018-06-06] MEDS: LISINOPRIL 5 MG TABLET PO SCH (16:54)
[2018-06-06] MEDS: LANSOPRAZOLE 15 MG TAB.RAP.DR PO SCH (17:02)
--- NOTE | 2018-06-06 19:03 | PDOC PROGRESS REPORT ---
Subjective Progress Note for:: 06/06/18 Subjective:: The patient is resting in bed. He does not feel as well as he did yesterday. He did experience orthopnea earlier today. He reports no further hemoptysis but there is some hematuria. Reason For Visit: HEART FAILURE Physical Exam Vital Signs: Temp Pulse Resp BP Pulse Ox 97.4 F 40 L 16 90/59 L 94 06/06/18 15:50 06/06/18 15:50 06/06/18 15:50 06/06/18 15:50 06/06/18 15:50 Intake & Output 06/05/18 06/06/18 06/07/18 06:59 06:59 06:59 Intake Total 822 2752 1285 Output Total 1025 1050 500 Balance -203 1702 785 Weight 85.1 kg General appearance: PRESENT: no acute distress Head exam: PRESENT: normocephalic Mouth exam: PRESENT: moist Teeth exam: PRESENT: edentulous Respiratory exam: PRESENT: decreased breath sounds - At bases, symmetrical, unlabored. ABSENT: prolonged expiratory phas, rhonchi, wheezes Cardiovascular exam: PRESENT: irregular rhythm Vascular exam: PRESENT: pallor GI/Abdominal exam: PRESENT: normal bowel sounds, soft. ABSENT: tenderness Gentrourinary exam: PRESENT: indwelling catheter - Blood-tinged urine Extremities exam: PRESENT: +1 edema Neurological exam: PRESENT: alert, awake, oriented to person, oriented to place, oriented to time, oriented to situation, CN II-XII grossly intact Psychiatric exam: PRESENT: appropriate affect, normal mood. ABSENT: agitated, anxious Focused psych exam: ABSENT: restlessness Results Laboratory Results: 06/06/18 04:09 06/06/18 04:09 06/06/18 06/06/18 04:09 04:09 WBC 10.2 RBC 3.79 L Hgb 8.9 L Hct 27.2 L MCV 72 L MCH 23.4 L MCHC 32.6 RDW 22.2 H Plt Count 219 Seg Neutrophils % Not Reportable Lymphocytes % Not Reportable Monocytes % Not Reportable Eosinophils % Not Reportable Basophils % Not Reportable Absolute Neutrophils Not Reportable Absolute Lymphocytes Not Reportable Absolute Monocytes Not Reportable Absolute Eosinophils Not Reportable Absolute Basophils Not Reportable Sodium 136.6 L Potassium 4.8 Chloride 100 Carbon Dioxide 26 Anion Gap 11 BUN 30 H Creatinine 0.93 Est GFR ( Amer) > 60 Est GFR (Non-Af Amer) > 60 Glucose 127 H Calcium 8.2 L Magnesium 1.7 06/04/18 06/04/18 06/04/18 02:35 02:35 02:35 Creatine Kinase 89 CK-MB (CK-2) 1.88 Troponin I 0.030 NT-Pro-B Natriuret Pep [id number] H 06/04/18 06/04/18 06/04/18 08:29 08:29 14:40 Creatine Kinase 82 86 CK-MB (CK-2) 1.75 Troponin I 0.029 NT-Pro-B Natriuret Pep 06/04/18 06/04/18 06/04/18 14:40 22:52 22:52 Creatine Kinase 76 CK-MB (CK-2) 1.54 1.33 Troponin I 0.024 0.027 NT-Pro-B Natriuret Pep Impressions: Chest X-Ray 06/04/18 02:36 IMPRESSION: Pulmonary edema with pleural effusions and cardiomegaly. Assessment & Plan - Diagnosis (1) Acute on chronic systolic CHF (congestive heart failure) Is this a current diagnosis for this admission?: Yes Plan: The patient reported some orthopnea earlier today. Reviewing his intake and output he took in more than 2.5 L by mouth yesterday. This gave him a positive fluid balance. I am going to decrease his allowable fluid intake to 2 L daily. I have increased his furosemide. I will continue to monitor his intake and output. (2) Chronic anticoagulation Is this a current diagnosis for this admission?: Yes Plan: Still holding the patient's warfarin. His INR is in the therapeutic range but he is having hematuria. Recheck INR tomorrow. (3) Hemoptysis Is this a current diagnosis for this admission?: Yes Plan: Resolved (4) Diabetes mellitus type 2 in nonobese Is this a current diagnosis for this admission?: Yes Plan: All Accu-Cheks less than 200. Continue current regimen. (5) Chronic atrial fibrillation Is this a current diagnosis for this admission?: Yes Plan: Good rate control with current medications. Resume anticoagulation when hematuria resolves. (6) Prostate cancer metastatic to bone Is this a current diagnosis for this admission?: Yes Plan: No acute intervention at this time (7) Do not resuscitate status Is this a current diagnosis for this admission?: Yes - Time Time Spent with patient: 15-24 minutes Medications reviewed and adjusted accordingly: Yes
[2018-06-06] MEDS: MELATONIN 3 MG TABLET PO SCH (21:51)
[2018-06-06 22:13] LABS: INTERNATIONAL RATION (INR) 2.67; PROTHROMBIN TIME 29.7 SEC (11.4-15.4)
[2018-06-07 04:57] LABS: ABSOLUTE RETICS # 0.131 10^6/uL (0.028-0.122); HEMATOCRIT 25.4 % (37.9-51.0); HEMOGLOBIN 8.4 g/dL (13.5-17.0); MEAN CORPUSCULAR HEMOGLOBIN 23.6 pg (27.0-33.4); MEAN CORPUSCULAR HGB CONC 32.9 g/dL (32.0-36.0); MEAN CORPUSCULAR VOLUME 72 fl (80-97); PLATELET COUNT 235 10^3/uL (150-450); RED BLOOD COUNT 3.54 10^6/uL (4.35-5.55); RED CELL DISTRIBUTION WIDTH 21.8 % (11.5-14.0); RETICULOCYTE COUNT (AUTO) 3.71 % (0.66-2.85)
[2018-06-07 05:16] LABS: ANION GAP 10 (5-19); BLOOD UREA NITROGEN 35 mg/dL (7-20); CALCIUM 8.3 mg/dL (8.4-10.2); CARBON DIOXIDE 26 mmol/L (22-30); CHLORIDE 98 mmol/L (98-107); GLUCOSE 118 mg/dL (75-110); IRON(TIBC) 53.4 ug/dL (49-181); POTASSIUM 5.6 mmol/L (3.6-5.0); SODIUM 134.1 mmol/L (137-145)
[2018-06-07 05:23] LABS: ABSOLUTE MONOCYTES # (MANUAL) 0.1 10^3/uL (0.1-1.4); ABSOLUTE NEUTROPHILS# (MANUAL) 8.8 10^3/uL (1.7-8.2); BASOPHILS % (MANUAL) 0 % (0-2); EOSINOPHILS % (MANUAL) 0 % (0-6); LYMPHOCYTES % (MANUAL) 10 % (13-45); MONOCYTES % (MANUAL) 1 % (3-13); NUCLEATED RED BLOOD CELLS 2 /100 WBC (0); SEGMENTED NEUTROPHILS % (MAN) 89 % (42-78); TOTAL CELLS COUNTED 100
[2018-06-07 05:25] LABS: ANISOCYTOSIS 3+; OVALOCYTES SLIGHT; PLATELET COMMENT ADEQUATE; POIKILOCYTOSIS SLIGHT; POLYCHROMASIA SLIGHT; TEAR DROP CELLS SLIGHT; TOXIC VACUOLATION PRESENT; WHITE BLOOD COUNT 10.2 10^3/uL (4.0-10.5)
[2018-06-07] MEDS: LEVOTHYROXINE SODIUM 0.1 MG TABLET PO SCH (06:02)
[2018-06-07 06:12] LABS: DIGOXIN < 0.40 ng/mL (0.8-2.0)
--- NOTE | 2018-06-07 09:26 | RADIOLOGY REPORT (SQ) ---
EXAM DESCRIPTION: CHEST SINGLE VIEW COMPLETED DATE/TIME: 06/07/2018 9:06 am REASON FOR STUDY: Congestive heart failure COMPARISON: 06/04/2018 EXAM PARAMETERS: NUMBER OF VIEWS: One view. TECHNIQUE: Single frontal radiographic view of the chest acquired. RADIATION DOSE: NA LIMITATIONS: None. FINDINGS: LUNGS AND PLEURA: Small bilateral pleural effusions, left greater than right with associat ed bibasilar opacification, likely atelectasis. No pneumothorax. MEDIASTINUM AND HILAR STRUCTURES: Stable, partially obscured. HEART AND VASCULAR STRUCTURES: Normal heart size. Atherosclerotic aorta. BONES: No acute findings. HARDWARE: Stable right internal jugular based chest port with catheter tip at cavoatrial junction. OTHER: No other significant finding. IMPRESSION: Stable small bilateral pleural effusions, left greater than right, and bibasilar opacifi cation, likely atelectasis. TECHNICAL DOCUMENTATION: JOB ID: [id number] [email or web address]- All Rights Reserved Reading location - IP/workstation name: [email or web address]
[2018-06-07] MEDS: FUROSEMIDE INJ/PF 40 MG/4 ML SDV IV SCH ×2 (10:35→22:55)
[2018-06-07] MEDS: FLUTICASONE/SALMETEROL DISKUS 250-50 MCG/DOSE IH SCH ×2 (10:35→22:52)
[2018-06-07] MEDS: CHOLECALCIFEROL (D3) 1,000 UNIT TABLET PO SCH (10:35)
[2018-06-07] MEDS: ASPIRIN 81 MG TABLET, ENT COATED PO SCH (10:36)
[2018-06-07] MEDS: POTASSIUM CHLORIDE 10 MEQ CAPSULE.ER PO SCH ×2 (10:36→22:53)
[2018-06-07] MEDS: DOCUSATE SODIUM 100 MG CAPSULE PO SCH (10:36)
[2018-06-07] MEDS: METOPROLOL SUCCINATE 25 MG TAB.SR.24H PO SCH (10:36)
[2018-06-07] MEDS: ATORVASTATIN CALCIUM 20 MG TABLET PO SCH (10:36)
[2018-06-07] MEDS: DRONABINOL 2.5 MG CAPSULE PO SCH ×2 (10:36→17:13)
[2018-06-07] MEDS: FAMOTIDINE 20 MG TABLET PO SCH ×2 (10:36→22:54)
[2018-06-07] MEDS: TOLTERODINE TARTRATE 1 MG TABLET PO SCH ×2 (10:37→22:53)
[2018-06-07] MEDS: CHLORHEXIDINE GLUCONATE 0.12% ORAL RINSE 15 ML UDC PO SCH ×3 (10:37→17:15)
[2018-06-07] MEDS: LISINOPRIL 5 MG TABLET PO SCH (10:39)
[2018-06-07] MEDS: LANSOPRAZOLE 15 MG TAB.RAP.DR PO SCH (17:13)
--- NOTE | 2018-06-07 19:30 | PDOC PROGRESS REPORT ---
Subjective Progress Note for:: 06/07/18 Subjective:: Still very short of breath. Reports significant orthopnea. Needs assistance moving to the commode. Reason For Visit: HEART FAILURE Physical Exam Vital Signs: Temp Pulse Resp BP Pulse Ox 97.3 F 81 16 101/67 98 06/07/18 16:03 06/07/18 16:03 06/07/18 16:03 06/07/18 16:03 06/07/18 16:03 Intake & Output 06/06/18 06/07/18 06/08/18 06:59 06:59 06:59 Intake Total 2752 1285 474 Output Total 1050 500 200 Balance 1702 785 274 Weight 86.7 kg General appearance: PRESENT: mild distress Respiratory exam: PRESENT: decreased breath sounds, prolonged expiratory phas, rales. ABSENT: wheezes Cardiovascular exam: PRESENT: RRR, +S1, +S2 GI/Abdominal exam: PRESENT: normal bowel sounds, soft. ABSENT: distended, tenderness Extremities exam: PRESENT: +2 edema Neurological exam: PRESENT: alert, awake, oriented to person, oriented to place, oriented to time, oriented to situation Psychiatric exam: PRESENT: normal mood Results Laboratory Results: 06/07/18 04:02 06/07/18 04:02 06/07/18 06/07/18 04:02 04:02 WBC 10.2 RBC 3.54 L Hgb 8.4 L Hct 25.4 L MCV 72 L MCH 23.6 L MCHC 32.9 RDW 21.8 H Plt Count 235 Seg Neutrophils % Not Reportable Lymphocytes % Not Reportable Monocytes % Not Reportable Eosinophils % Not Reportable Basophils % Not Reportable Absolute Neutrophils Not Reportable Absolute Lymphocytes Not Reportable Absolute Monocytes Not Reportable Absolute Eosinophils Not Reportable Absolute Basophils Not Reportable Retic Count (auto) 3.71 H Absolute Retic 0.131 H Sodium 134.1 L Potassium 5.6 H Chloride 98 Carbon Dioxide 26 Anion Gap 10 BUN 35 H Creatinine 1.11 Est GFR ( Amer) > 60 Est GFR (Non-Af Amer) > 60 Glucose 118 H Calcium 8.3 L Magnesium 1.7 Iron 53.4 TIBC 336 % Saturation 16 Ferritin 247.00 Vitamin B12 > 1000.0 H Folate 13.80 06/04/18 06/04/18 06/04/18 02:35 02:35 02:35 Creatine Kinase 89 CK-MB (CK-2) 1.88 Troponin I 0.030 NT-Pro-B Natriuret Pep [id number] H 06/04/18 06/04/18 06/04/18 08:29 08:29 14:40 Creatine Kinase 82 86 CK-MB (CK-2) 1.75 Troponin I 0.029 NT-Pro-B Natriuret Pep 06/04/18 06/04/18 06/04/18 14:40 22:52 22:52 Creatine Kinase 76 CK-MB (CK-2) 1.54 1.33 Troponin I 0.024 0.027 NT-Pro-B Natriuret Pep 06/07/18 04:02 Creatine Kinase CK-MB (CK-2) Troponin I NT-Pro-B Natriuret Pep [id number] H Impressions: Chest X-Ray 06/07/18 06:00 IMPRESSION: Stable small bilateral pleural effusions, left greater than right, and bibasilar opacification, likely atelectasis. Assessment & Plan - Diagnosis (1) Acute on chronic systolic CHF (congestive heart failure) Is this a current diagnosis for this admission?: Yes Plan: Still with positive fluid balance. I have added Zaroxolyn to the furosemide. Chest x-ray reveals small bilateral pleural effusions. Probably not large enough for thoracentesis. He is already on hospice for his metastatic prostate cancer. I suggested he might consider hospice for his congestive heart failure as well. (2) Chronic anticoagulation Is this a current diagnosis for this admission?: Yes Plan: INR is remaining in the therapeutic range. He still has not received any warfarin. We will continue to monitor. (3) Hemoptysis Is this a current diagnosis for this admission?: Yes Plan: Resolved (4) Diabetes mellitus type 2 in nonobese Is this a current diagnosis for this admission?: Yes Plan: Sugars remain less than 200 and most less than 150. Continue same regimen. (5) Chronic atrial fibrillation Is this a current diagnosis for this admission?: Yes Plan: Good rate control with current regimen. Anticoagulation as above. (6) Prostate cancer metastatic to bone Is this a current diagnosis for this admission?: Yes Plan: Pain management. (7) Do not resuscitate status Is this a current diagnosis for this admission?: Yes - Time Time Spent with patient: Less than 15 minutes Medications reviewed and adjusted accordingly: Yes
[2018-06-07] MEDS: MELATONIN 3 MG TABLET PO SCH (22:55)
[2018-06-08] MEDS: LEVOTHYROXINE SODIUM 0.1 MG TABLET PO SCH (05:06)
[2018-06-08 07:44] LABS: ANION GAP 10 (5-19); BLOOD UREA NITROGEN 43 mg/dL (7-20); CALCIUM 7.9 mg/dL (8.4-10.2); CARBON DIOXIDE 23 mmol/L (22-30); CHLORIDE 95 mmol/L (98-107); GLUCOSE 84 mg/dL (75-110); POTASSIUM 5.4 mmol/L (3.6-5.0); SODIUM 127.9 mmol/L (137-145)
[2018-06-08] MEDS: METOPROLOL SUCCINATE 25 MG TAB.SR.24H PO SCH (09:53)
[2018-06-08] MEDS: LISINOPRIL 5 MG TABLET PO SCH (09:53)
[2018-06-08] MEDS: ATORVASTATIN CALCIUM 20 MG TABLET PO SCH (09:53)
[2018-06-08] MEDS: DRONABINOL 2.5 MG CAPSULE PO SCH ×2 (09:53→17:44)
[2018-06-08] MEDS: ASPIRIN 81 MG TABLET, ENT COATED PO SCH (09:53)
[2018-06-08] MEDS: FAMOTIDINE 20 MG TABLET PO SCH ×2 (09:53→22:00)
[2018-06-08] MEDS: FUROSEMIDE INJ/PF 40 MG/4 ML SDV IV SCH ×2 (09:54→22:01)
[2018-06-08] MEDS: TOLTERODINE TARTRATE 1 MG TABLET PO SCH ×2 (09:54→22:00)
[2018-06-08] MEDS: DOCUSATE SODIUM 100 MG CAPSULE PO SCH (09:54)
[2018-06-08] MEDS: FLUTICASONE/SALMETEROL DISKUS 250-50 MCG/DOSE IH SCH ×2 (09:54→21:59)
[2018-06-08] MEDS: METOLAZONE 2.5 MG TABLET PO SCH (09:54)
[2018-06-08] MEDS: CHLORHEXIDINE GLUCONATE 0.12% ORAL RINSE 15 ML UDC PO SCH ×3 (09:54→17:44)
[2018-06-08] MEDS: CHOLECALCIFEROL (D3) 1,000 UNIT TABLET PO SCH (09:54)
--- NOTE | 2018-06-08 15:19 | PDOC PROGRESS REPORT ---
Subjective Progress Note for:: 06/08/18 Subjective:: Patient is still having shortness of breath. He is now coughing up discolored sputum. He still has to sleep sitting up. He does not like his legs elevated because he feels this increases his shortness of breath. Reason For Visit: HEART FAILURE Physical Exam Vital Signs: Temp Pulse Resp BP Pulse Ox 97.2 F 80 22 H 92/60 L 90 L 06/08/18 11:37 06/08/18 14:00 06/08/18 11:37 06/08/18 11:37 06/08/18 07:44 Intake & Output 06/07/18 06/08/18 06/09/18 06:59 06:59 06:59 Intake Total 1285 474 Output Total 500 500 400 Balance 785 -26 -400 Weight 86.7 kg General appearance: PRESENT: mild distress Head exam: PRESENT: normocephalic Ear exam: PRESENT: normal external ear exam Teeth exam: PRESENT: edentulous Respiratory exam: PRESENT: decreased breath sounds, symmetrical. ABSENT: rhonchi, wheezes Cardiovascular exam: PRESENT: irregular rhythm GI/Abdominal exam: PRESENT: normal bowel sounds, soft. ABSENT: tenderness Gentrourinary exam: PRESENT: indwelling catheter Extremities exam: PRESENT: +2 edema - Edema through his thighs Neurological exam: PRESENT: alert, awake, oriented to person, oriented to place, oriented to time, oriented to situation Psychiatric exam: PRESENT: flat affect. ABSENT: agitated, anxious Focused psych exam: ABSENT: restlessness Results Laboratory Results: 06/07/18 04:02 06/08/18 07:17 06/08/18 07:17 Sodium 127.9 L Potassium 5.4 H Chloride 95 L Carbon Dioxide 23 Anion Gap 10 BUN 43 H Creatinine 1.30 H Est GFR ( Amer) > 60 Est GFR (Non-Af Amer) 54 L Glucose 84 Calcium 7.9 L 06/04/18 06/04/18 06/04/18 02:35 02:35 02:35 Creatine Kinase 89 CK-MB (CK-2) 1.88 Troponin I 0.030 NT-Pro-B Natriuret Pep [id number] H 06/04/18 06/04/18 06/04/18 08:29 08:29 14:40 Creatine Kinase 82 86 CK-MB (CK-2) 1.75 Troponin I 0.029 NT-Pro-B Natriuret Pep 06/04/18 06/04/18 06/04/18 14:40 22:52 22:52 Creatine Kinase 76 CK-MB (CK-2) 1.54 1.33 Troponin I 0.024 0.027 NT-Pro-B Natriuret Pep 06/07/18 04:02 Creatine Kinase CK-MB (CK-2) Troponin I NT-Pro-B Natriuret Pep [id number] H Impressions: Chest X-Ray 06/07/18 06:00 IMPRESSION: Stable small bilateral pleural effusions, left greater than right, and bibasilar opacification, likely atelectasis. Assessment & Plan - Diagnosis (1) Acute on chronic systolic CHF (congestive heart failure) Is this a current diagnosis for this admission?: Yes Plan: Despite increased diuretics and mild fluid restriction we still do not have a significant negative fluid balance. I would like to achieve at least 1 L a day. We have to be mindful of his blood pressure. In addition, his albumin is quite low. I will administer albumin before the morning diuretics for 3 days to assess effectiveness. (2) Chronic anticoagulation Is this a current diagnosis for this admission?: Yes Plan: Despite no warfarin his INR is still in the therapeutic range. We will continue to monitor. (3) Hemoptysis Is this a current diagnosis for this admission?: Yes Plan: Hemoptysis seems to be resolved. Now he is coughing up discolored sputum. He is afebrile. He does not have a significant white blood cell count. I have asked for a sputum specimen. There is some basilar atelectasis. He also has pleural effusions. Consolidation cannot be ruled out completely. We will check a sputum for Gram stain and culture as well. (4) Diabetes mellitus type 2 in nonobese Is this a current diagnosis for this admission?: Yes Plan: Good blood pressure control on current regimen. Continue the same. (5) Chronic atrial fibrillation Is this a current diagnosis for this admission?: Yes Plan: Reasonable rate control with low-dose metoprolol. Anticoagulation as noted above. (6) Prostate cancer metastatic to bone Is this a current diagnosis for this admission?: Yes Plan: The patient requested to speak to oncology. He is interested in stopping chemotherapy for his prostate cancer. (7) Do not resuscitate status Is this a current diagnosis for this admission?: Yes Plan: I did discuss the possibility that we could not get all this fluid off without possibly harming his kidneys. We will check his numbers every day. I will keep pushing the diuretics as much as can be tolerated in an effort to remove fluid. It is certainly possible that these efforts might be unsuccessful and hospice might be considered. - Time Time Spent with patient: 15-24 minutes Medications reviewed and adjusted accordingly: Yes Anticipated discharge: SNF
[2018-06-08] MEDS: LANSOPRAZOLE 15 MG TAB.RAP.DR PO SCH (17:44)
[2018-06-08] MEDS: MELATONIN 3 MG TABLET PO SCH (21:59)
[2018-06-09] MEDS: ACETAMINOPHEN 325 MG TABLET PO PRN (00:46)
[2018-06-09] MEDS: LEVOTHYROXINE SODIUM 0.1 MG TABLET PO SCH (06:39)
[2018-06-09 07:06] LABS: HEMATOCRIT 23.5 % (37.9-51.0); MEAN CORPUSCULAR HEMOGLOBIN 23.9 pg (27.0-33.4); MEAN CORPUSCULAR HGB CONC 32.7 g/dL (32.0-36.0); MEAN CORPUSCULAR VOLUME 73 fl (80-97); PLATELET COUNT 216 10^3/uL (150-450); RED BLOOD COUNT 3.22 10^6/uL (4.35-5.55); RED CELL DISTRIBUTION WIDTH 22.5 % (11.5-14.0); WHITE BLOOD COUNT 10.8 10^3/uL (4.0-10.5)
[2018-06-09 07:07] LABS: HEMOGLOBIN 7.7 g/dL (13.5-17.0)
[2018-06-09 07:33] LABS: ANION GAP 7 (5-19); BLOOD UREA NITROGEN 46 mg/dL (7-20); CALCIUM 7.2 mg/dL (8.4-10.2); CARBON DIOXIDE 25 mmol/L (22-30); CHLORIDE 97 mmol/L (98-107); GLUCOSE 85 mg/dL (75-110); SODIUM 128.9 mmol/L (137-145)
[2018-06-09] MEDS ORDERED: MIDODRINE HCL 5 MG TABLET PO ONE (11:30)
[2018-06-09] MEDS: METOPROLOL TARTRATE 25 MG TABLET PO SCH ×2 (11:34→22:27)
[2018-06-09] MEDS: FAMOTIDINE 20 MG TABLET PO SCH ×2 (11:34→22:30)
[2018-06-09] MEDS: DOCUSATE SODIUM 100 MG CAPSULE PO SCH (11:34)
[2018-06-09] MEDS: LISINOPRIL 5 MG TABLET PO SCH (11:34)
[2018-06-09] MEDS: CHOLECALCIFEROL (D3) 1,000 UNIT TABLET PO SCH (11:34)
[2018-06-09] MEDS: ATORVASTATIN CALCIUM 20 MG TABLET PO SCH (11:34)
[2018-06-09] MEDS: DRONABINOL 2.5 MG CAPSULE PO SCH ×2 (11:34→17:30)
[2018-06-09] MEDS: METOLAZONE 2.5 MG TABLET PO SCH (11:35)
[2018-06-09] MEDS: FLUTICASONE/SALMETEROL DISKUS 250-50 MCG/DOSE IH SCH ×2 (11:35→22:28)
[2018-06-09] MEDS: CHLORHEXIDINE GLUCONATE 0.12% ORAL RINSE 15 ML UDC PO SCH ×3 (11:35→17:30)
[2018-06-09] MEDS: ASPIRIN 81 MG TABLET, ENT COATED PO SCH (11:35)
[2018-06-09] MEDS: TOLTERODINE TARTRATE 1 MG TABLET PO SCH ×2 (11:35→22:30)
[2018-06-09] MEDS: ALBUMIN HUMAN 12.5 GM/50 ML RTUINJ IV SCH (11:36)
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
[2018-06-09] MEDS: METOPROLOL SUCCINATE 25 MG TAB.SR.24H PO SCH (11:48)
[2018-06-09] MEDS: FUROSEMIDE INJ/PF 40 MG/4 ML SDV IV SCH (11:48)
[2018-06-09] MEDS ORDERED: BUMETANIDE INJ/PF 1 MG/4 ML SDV IV SCH (12:00)
--- NOTE | 2018-06-09 12:01 | PDOC PROGRESS REPORT ---
Subjective Progress Note for:: 06/09/18 Subjective:: sitting on the chair with legs hanging down. does answer my questions. gets easily SOB with exertion. family - son and daughter at bedside - spoke with them both Reason For Visit: HEART FAILURE Physical Exam Vital Signs: Temp Pulse Resp BP Pulse Ox 97.6 F 79 20 86/58 L 90 L 06/09/18 07:38 06/09/18 07:38 06/09/18 07:38 06/09/18 07:38 06/09/18 07:38 Intake & Output 06/08/18 06/09/18 06/10/18 06:59 06:59 06:59 Intake Total 474 450 Output Total 500 1450 475 Balance -26 -1000 -475 General appearance: PRESENT: mild distress - with exertion, other - ill appearing Head exam: PRESENT: atraumatic, normocephalic Eye exam: PRESENT: EOMI, PERRLA. ABSENT: scleral icterus Ear exam: PRESENT: normal external ear exam Mouth exam: PRESENT: tongue midline Teeth exam: PRESENT: poor dentation Neck exam: ABSENT: tracheal deviation Respiratory exam: PRESENT: decreased breath sounds - bilaterally, symmetrical Pulses: PRESENT: +1 pedal pulses bilateral GI/Abdominal exam: PRESENT: normal bowel sounds, soft. ABSENT: tenderness Extremities exam: PRESENT: joint swelling, pedal edema, other - diffuse bilateral edema up to thighs- 3+ Neurological exam: PRESENT: alert, awake, oriented to person, CN II-XII grossly intact Skin exam: PRESENT: dry, warm Results Laboratory Results: 06/09/18 06:25 06/09/18 06:25 06/09/18 06/09/18 06:25 06:25 WBC 10.8 H RBC 3.22 L Hgb 7.7 L Hct 23.5 L MCV 73 L MCH 23.9 L MCHC 32.7 RDW 22.5 H Plt Count 216 Sodium 128.9 L Potassium 4.0 D Chloride 97 L Carbon Dioxide 25 Anion Gap 7 BUN 46 H Creatinine 1.31 H Est GFR ( Amer) > 60 Est GFR (Non-Af Amer) 53 L Glucose 85 Calcium 7.2 L 06/04/18 06/04/18 06/04/18 02:35 02:35 02:35 Creatine Kinase 89 CK-MB (CK-2) 1.88 Troponin I 0.030 NT-Pro-B Natriuret Pep [id number] H 06/04/18 06/04/18 06/04/18 08:29 08:29 14:40 Creatine Kinase 82 86 CK-MB (CK-2) 1.75 Troponin I 0.029 NT-Pro-B Natriuret Pep 06/04/18 06/04/18 06/04/18 14:40 22:52 22:52 Creatine Kinase 76 CK-MB (CK-2) 1.54 1.33 Troponin I 0.024 0.027 NT-Pro-B Natriuret Pep 06/07/18 04:02 Creatine Kinase CK-MB (CK-2) Troponin I NT-Pro-B Natriuret Pep [id number] H Impressions: Chest X-Ray 06/07/18 06:00 IMPRESSION: Stable small bilateral pleural effusions, left greater than right, and bibasilar opacification, likely atelectasis. Assessment & Plan - Diagnosis (1) Acute on chronic systolic CHF (congestive heart failure) Is this a current diagnosis for this admission?: Yes (2) Chronic anticoagulation Is this a current diagnosis for this admission?: Yes (3) Diabetes mellitus type 2 in nonobese Is this a current diagnosis for this admission?: Yes (4) Hemoptysis Is this a current diagnosis for this admission?: Yes (5) Acute respiratory failure Qualifiers: Respiratory failure complication: hypoxia Qualified Code(s): J96.01 - Acute respiratory failure with hypoxia Is this a current diagnosis for this admission?: Yes (6) CAD (coronary artery disease) Qualifiers: Coronary Disease-Associated Artery/Lesion type: bypass graft [place] vs. transplanted heart: [place] heart Associated angina: without angina Qualified Code(s): I25.810 - Atherosclerosis of coronary artery bypass graft(s) without angina pectoris Is this a current diagnosis for this admission?: Yes (7) Chronic atrial fibrillation Is this a current diagnosis for this admission?: Yes (9) Do not resuscitate status Is this a current diagnosis for this admission?: Yes (10) Prostate cancer metastatic to bone Is this a current diagnosis for this admission?: Yes (11) Hyponatremia Is this a current diagnosis for this admission?: Yes - Plan Summary Plan Summary: acute on chronic respiratory failure- likely 2/2 CHF exacerbation- see plan before. c/w O2 to keep Saturation >92% Acute heart failure- no recent ECHO- he's been on lasix 60mg IV BID but not having good output. his SBP is in the 80s. he does not look well at this time- i have consulted kiln stacker, Dr Coats- i appreciate his assistance- will get ECHO- Dr coats recommends midrodrine 5mg x1- c/w lisinopril. i have switched him to Bumex 2mg IV since Lasix IV doesn't seem to be helping with diuresis- may need bumex drip. spoke with family - explained to them that patient is not doing well and may decline further- son and daughter understands - they tell me "dad thinks he will not get out of the hospital this time". I will await full recommendations from Dr Coats Hyponatremia- likely 2/2 CHF and volume overload- will c/w aggressive diuresis Atrial fib- i have switched to metoprolol 12.5mg BID. coumadin on hold - no INR results but was therapeutic a few days ago. will check daily. Stage IV prostate ca- Dr Gongora is consulted- i appreciate this assistance
--- NOTE | 2018-06-09 12:10 | Progress Note ---
Provider Note Provider Note: Hb low this morning at 7.7. will repeat CBC this afternoon- will transfuse if Hb <8 at that time.
--- NOTE | 2018-06-09 13:31 | Progress Note ---
Provider Note Provider Note: Spoke with dr page. he recommends stopping bumex. he recommends midodrine 10mg Tid
[2018-06-09] MEDS ORDERED: DOPAMINE HCL 800 MG/D5W 250 ML IV PRN (13:57)
[2018-06-09 15:08] LABS: HEMATOCRIT 24.3 % (37.9-51.0); MEAN CORPUSCULAR HEMOGLOBIN 23.5 pg (27.0-33.4); MEAN CORPUSCULAR HGB CONC 32.8 g/dL (32.0-36.0); MEAN CORPUSCULAR VOLUME 72 fl (80-97); PLATELET COUNT 200 10^3/uL (150-450); RED BLOOD COUNT 3.38 10^6/uL (4.35-5.55); RED CELL DISTRIBUTION WIDTH 21.2 % (11.5-14.0); WHITE BLOOD COUNT 9.9 10^3/uL (4.0-10.5)
[2018-06-09] MEDS: LANSOPRAZOLE 15 MG TAB.RAP.DR PO SCH (17:31)
[2018-06-09] MEDS: MIDODRINE HCL 5 MG TABLET PO SCH (17:31)
[2018-06-09] MEDS ORDERED: FUROSEMIDE INJ/PF 40 MG/4 ML SDV IV ONE (17:52)
[2018-06-09] MEDS: DOPAMINE HCL/DEXTROSE 5%-WATER 800 MG/250 ML RTUINJ IV PRN (18:57)
[2018-06-09] MEDS: MELATONIN 3 MG TABLET PO SCH (22:30)
[2018-06-10] MEDS: LEVOTHYROXINE SODIUM 0.1 MG TABLET PO SCH (05:28)
[2018-06-10 07:13] LABS: HEMATOCRIT 25.2 % (37.9-51.0); HEMOGLOBIN 8.5 g/dL (13.5-17.0); MEAN CORPUSCULAR HEMOGLOBIN 24.1 pg (27.0-33.4); MEAN CORPUSCULAR HGB CONC 33.8 g/dL (32.0-36.0); MEAN CORPUSCULAR VOLUME 71 fl (80-97); PLATELET COUNT 223 10^3/uL (150-450); RED BLOOD COUNT 3.54 10^6/uL (4.35-5.55); RED CELL DISTRIBUTION WIDTH 23.6 % (11.5-14.0); WHITE BLOOD COUNT 10.8 10^3/uL (4.0-10.5)
[2018-06-10 07:18] LABS: INTERNATIONAL RATION (INR) 1.42; PROTHROMBIN TIME 18.1 SEC (11.4-15.4)
[2018-06-10 07:50] LABS: ANION GAP 10 (5-19); BLOOD UREA NITROGEN 47 mg/dL (7-20); CALCIUM 7.9 mg/dL (8.4-10.2); CARBON DIOXIDE 28 mmol/L (22-30); CHLORIDE 92 mmol/L (98-107); GLUCOSE 110 mg/dL (75-110); POTASSIUM 3.6 mmol/L (3.6-5.0); SODIUM 130.2 mmol/L (137-145)
[2018-06-10 08:08] LABS: ABSOLUTE LYMPHOCYTES# (MANUAL) 0.3 10^3/uL (0.5-4.7); ABSOLUTE NEUTROPHILS# (MANUAL) 9.5 10^3/uL (1.7-8.2); ANISOCYTOSIS 2+; BASOPHILS % (MANUAL) 0 % (0-2); EOSINOPHILS % (MANUAL) 0 % (0-6); HYPOCHROMASIA 1+; LYMPHOCYTES % (MANUAL) 3 % (13-45); METAMYELOCYTES % (MANUAL) 1 % (0); MONOCYTES % (MANUAL) 9 % (3-13); OVALOCYTES 2+; PLATELET COMMENT ADEQUATE; POIKILOCYTOSIS 2+; POLYCHROMASIA 2+; SEGMENTED NEUTROPHILS % (MAN) 87 % (42-78); TOTAL CELLS COUNTED 100; TOXIC GRANULATION SLIGHT; TOXIC VACUOLATION PRESENT
--- NOTE | 2018-06-10 08:21 | PDOC PROGRESS REPORT ---
Subjective Progress Note for:: 06/10/18 Subjective:: Patient states that the last round of chemo "knocked my legs out from under me." He states that he wants to stop chemo for a while and see how things go. He states that he is feeling good today and is surrounded by his family. No complaints today other than weakness. Reason For Visit: HEART FAILURE Physical Exam Vital Signs: Temp Pulse Resp BP Pulse Ox 98.4 F 53 L 20 91/62 L 100 06/10/18 04:14 06/10/18 04:14 06/10/18 04:14 06/10/18 04:14 06/10/18 04:14 Intake & Output 06/09/18 06/10/18 06/11/18 06:59 06:59 06:59 Intake Total 450 550 Output Total 1450 2775 Balance -1000 -2225 Weight 89.3 kg General appearance: PRESENT: well-developed, well-nourished Head exam: PRESENT: normocephalic Respiratory exam: PRESENT: clear to auscultation carmelo, unlabored Cardiovascular exam: PRESENT: irregular rhythm GI/Abdominal exam: PRESENT: soft. ABSENT: tenderness Extremities exam: PRESENT: +2 edema - Bilateral feet. TEDs and SCDs in place. Neurological exam: PRESENT: alert, awake, oriented to person, oriented to place Psychiatric exam: PRESENT: appropriate affect Skin exam: PRESENT: pallor Results Laboratory Results: 06/10/18 07:05 06/10/18 07:05 06/09/18 06/09/18 06/10/18 15:00 15:00 07:05 WBC 9.9 10.8 H RBC 3.38 L 3.54 L Hgb 8.0 L 8.5 L Hct 24.3 L 25.2 L MCV 72 L 71 L MCH 23.5 L 24.1 L MCHC 32.8 33.8 RDW 21.2 H 23.6 H Plt Count 200 223 Seg Neutrophils % Not Reportable Lymphocytes % Not Reportable Monocytes % Not Reportable Eosinophils % Not Reportable Basophils % Not Reportable Absolute Neutrophils Not Reportable Absolute Lymphocytes Not Reportable Absolute Monocytes Not Reportable Absolute Eosinophils Not Reportable Absolute Basophils Not Reportable Sodium Potassium Chloride Carbon Dioxide Anion Gap BUN Creatinine Est GFR ( Amer) Est GFR (Non-Af Amer) Glucose Calcium Blood Type AB POSITIVE Antibody Screen NEGATIVE 06/10/18 07:05 WBC RBC Hgb Hct MCV MCH MCHC RDW Plt Count Seg Neutrophils % Lymphocytes % Monocytes % Eosinophils % Basophils % Absolute Neutrophils Absolute Lymphocytes Absolute Monocytes Absolute Eosinophils Absolute Basophils Sodium 130.2 L Potassium 3.6 Chloride 92 L Carbon Dioxide 28 Anion Gap 10 BUN 47 H Creatinine 1.19 Est GFR ( Amer) > 60 Est GFR (Non-Af Amer) 59 L Glucose 110 Calcium 7.9 L Blood Type Antibody Screen 06/04/18 06/04/18 06/04/18 02:35 02:35 02:35 Creatine Kinase 89 CK-MB (CK-2) 1.88 Troponin I 0.030 NT-Pro-B Natriuret Pep [id number] H 06/04/18 06/04/18 06/04/18 08:29 08:29 14:40 Creatine Kinase 82 86 CK-MB (CK-2) 1.75 Troponin I 0.029 NT-Pro-B Natriuret Pep 06/04/18 06/04/18 06/04/18 14:40 22:52 22:52 Creatine Kinase 76 CK-MB (CK-2) 1.54 1.33 Troponin I 0.024 0.027 NT-Pro-B Natriuret Pep 06/07/18 04:02 Creatine Kinase CK-MB (CK-2) Troponin I NT-Pro-B Natriuret Pep 10075 H Impressions: Chest X-Ray 06/07/18 06:00 IMPRESSION: Stable small bilateral pleural effusions, left greater than right, and bibasilar opacification, likely atelectasis. Assessment & Plan - Diagnosis (1) Prostate cancer metastatic to bone Is this a current diagnosis for this admission?: Yes Plan: He received Jevtana and Xgeva on 05/13/2018. He received Aranesp on 05/16/2018. Further treatment on hold, per patient request. (2) Acute on chronic systolic CHF (congestive heart failure) Is this a current diagnosis for this admission?: Yes Plan: Followed by cardiology. - Plan Summary Plan Summary: Patient denies pain currently. Plans currently are for him to go back to rehab/SNF. Family does not believe they are ready for home Hospice. He is a DNR. No aggressive measures. Main goal at this point is patient comfort. I will continue to follow with you. Please call with any concerns.
[2018-06-10] MEDS: ALBUMIN HUMAN 12.5 GM/50 ML RTUINJ IV SCH (09:39)
[2018-06-10] MEDS: CHLORHEXIDINE GLUCONATE 0.12% ORAL RINSE 15 ML UDC PO SCH ×3 (09:41→17:11)
[2018-06-10] MEDS: FLUTICASONE/SALMETEROL DISKUS 250-50 MCG/DOSE IH SCH ×2 (09:41→22:44)
[2018-06-10] MEDS: CHOLECALCIFEROL (D3) 1,000 UNIT TABLET PO SCH (09:42)
[2018-06-10] MEDS: MIDODRINE HCL 5 MG TABLET PO SCH ×3 (09:42→17:11)
[2018-06-10] MEDS: DOCUSATE SODIUM 100 MG CAPSULE PO SCH (09:42)
[2018-06-10] MEDS: LISINOPRIL 5 MG TABLET PO SCH (09:43)
[2018-06-10] MEDS: METOPROLOL TARTRATE 25 MG TABLET PO SCH ×2 (09:44→22:44)
[2018-06-10] MEDS: ASPIRIN 81 MG TABLET, ENT COATED PO SCH (09:44)
[2018-06-10] MEDS: ATORVASTATIN CALCIUM 20 MG TABLET PO SCH (09:44)
[2018-06-10] MEDS: DRONABINOL 2.5 MG CAPSULE PO SCH ×2 (09:45→17:07)
[2018-06-10] MEDS: FAMOTIDINE 20 MG TABLET PO SCH ×2 (09:45→22:44)
[2018-06-10] MEDS: METOLAZONE 2.5 MG TABLET PO SCH (09:45)
[2018-06-10] MEDS: TOLTERODINE TARTRATE 1 MG TABLET PO SCH ×2 (09:47→22:44)
--- NOTE | 2018-06-10 11:02 | PDOC PROGRESS REPORT ---
Subjective Progress Note for:: 06/10/18 Subjective:: The patient is complaining of not feeling well. He is feeling better but not well enough. He is still very short of breath. He is very hypotensive. He is presently on a dopamine drip. Long discussion with the family and the patient. Discussed the cardiomyopathy and heart failure. Discussed the need to continue a trial with the dopamine for another 24 hours and then if no improvement we help all agreed to discontinue the dopamine and go with comfort care and home health and hospice. The patient wants to either go home or to a [facility] with comfort care and hospice if his symptoms do not improve over the next 24 hours. He has decided to stop any chemotherapy and will possibly start with comfort care and home health and hospice tomorrow Reason For Visit: HEART FAILURE Physical Exam Vital Signs: Temp Pulse Resp BP Pulse Ox 97.9 F 97 20 86/35 L 100 06/10/18 08:05 06/10/18 08:05 06/10/18 04:14 06/10/18 08:05 06/10/18 08:05 Intake & Output 06/09/18 06/10/18 06/11/18 06:59 06:59 06:59 Intake Total 450 550 Output Total 1450 2775 Balance -1000 -2225 Weight 89.3 kg General appearance: PRESENT: mild distress Head exam: PRESENT: atraumatic Eye exam: PRESENT: conjunctival injection Neck exam: PRESENT: carotid bruit, JVD Respiratory exam: PRESENT: rales Cardiovascular exam: PRESENT: irregular rhythm Extremities exam: PRESENT: pedal edema Musculoskeletal exam: PRESENT: tenderness Neurological exam: PRESENT: alert, awake Results Laboratory Results: 06/10/18 07:05 06/10/18 07:05 06/09/18 06/09/18 06/10/18 15:00 15:00 07:05 WBC 9.9 10.8 H RBC 3.38 L 3.54 L Hgb 8.0 L 8.5 L Hct 24.3 L 25.2 L MCV 72 L 71 L MCH 23.5 L 24.1 L MCHC 32.8 33.8 RDW 21.2 H 23.6 H Plt Count 200 223 Seg Neutrophils % Not Reportable Lymphocytes % Not Reportable Monocytes % Not Reportable Eosinophils % Not Reportable Basophils % Not Reportable Absolute Neutrophils Not Reportable Absolute Lymphocytes Not Reportable Absolute Monocytes Not Reportable Absolute Eosinophils Not Reportable Absolute Basophils Not Reportable Sodium Potassium Chloride Carbon Dioxide Anion Gap BUN Creatinine Est GFR ( Amer) Est GFR (Non-Af Amer) Glucose Calcium Blood Type AB POSITIVE Antibody Screen NEGATIVE 06/10/18 07:05 WBC RBC Hgb Hct MCV MCH MCHC RDW Plt Count Seg Neutrophils % Lymphocytes % Monocytes % Eosinophils % Basophils % Absolute Neutrophils Absolute Lymphocytes Absolute Monocytes Absolute Eosinophils Absolute Basophils Sodium 130.2 L Potassium 3.6 Chloride 92 L Carbon Dioxide 28 Anion Gap 10 BUN 47 H Creatinine 1.19 Est GFR ( Amer) > 60 Est GFR (Non-Af Amer) 59 L Glucose 110 Calcium 7.9 L Blood Type Antibody Screen 06/04/18 06/04/18 06/04/18 02:35 02:35 02:35 Creatine Kinase 89 CK-MB (CK-2) 1.88 Troponin I 0.030 NT-Pro-B Natriuret Pep [id number] H 06/04/18 06/04/18 06/04/18 08:29 08:29 14:40 Creatine Kinase 82 86 CK-MB (CK-2) 1.75 Troponin I 0.029 NT-Pro-B Natriuret Pep 06/04/18 06/04/18 06/04/18 14:40 22:52 22:52 Creatine Kinase 76 CK-MB (CK-2) 1.54 1.33 Troponin I 0.024 0.027 NT-Pro-B Natriuret Pep 06/07/18 04:02 Creatine Kinase CK-MB (CK-2) Troponin I NT-Pro-B Natriuret Pep [id number] H Impressions: Chest X-Ray 06/07/18 06:00 IMPRESSION: Stable small bilateral pleural effusions, left greater than right, and bibasilar opacification, likely atelectasis. Assessment & Plan - Diagnosis (2) Acute on chronic systolic CHF (congestive heart failure) Is this a current diagnosis for this admission?: Yes Plan: Continue dopamine for another 24 hours (3) CAD (coronary artery disease) Qualifiers: Coronary Disease-Associated Artery/Lesion type: bypass graft [place] vs. transplanted heart: [place] heart Associated angina: without angina Qualified Code(s): I25.810 - Atherosclerosis of coronary artery bypass graft(s) without angina pectoris Is this a current diagnosis for this admission?: Yes Plan: Continue current medications (4) Chronic atrial fibrillation Is this a current diagnosis for this admission?: Yes (5) Chronic respiratory failure with hypoxia, on home O2 therapy Is this a current diagnosis for this admission?: Yes Plan: Continue with current treatment (6) Prostate cancer metastatic to bone Is this a current diagnosis for this admission?: Yes Plan: Stop the chemotherapy or any treatment for prostate cancer (7) Do not resuscitate status Is this a current diagnosis for this admission?: Yes Plan: We will consult with hospice and home health. Will consider comfort measures tomorrow
[2018-06-10] MEDS: LANSOPRAZOLE 15 MG TAB.RAP.DR PO SCH (17:12)
--- NOTE | 2018-06-10 21:50 | PDOC CONSULTATION ---
Consultation-Blank Consultation: CARDIOLOGY CONSULTATION by Dr. Lamar srinivasan. Patient seen at 12:30 PM on 06/10/2018. REASON FOR CONSULTATION: Patient with congestive heart failure, chronic atrial fibrillation, and hypotension. The patient's chart reviewed. He has a history of chronic atrial fibrillation, admitted with symptoms of biventricular failure, with severely reduced LV ejection fraction, echo shows severe, probably critical aortic stenosis. The patient was hypotensive. I discussed with the hospitalist covering Kevin lang MD to start the patient on Midrin, and also dopamine. Subsequently there was a third talk about the patient being made comfort measures by the patient and the patient's family. Hence we will wait till morning until Kevin Hurst MD that attending physician on the patient makes sounds to see if the patient indeed is made comfort measures. If the patient is not placed on palliative of comfort care then will render a formal cardiology consult.
[2018-06-10] MEDS: MELATONIN 3 MG TABLET PO SCH (22:44)
--- NOTE | 2018-06-10 22:55 | XCELERA REPORT ---
[address] [address] Transthoracic Echocardiogram Report Name: MAGALIE ABAD Age: 77 yrs Gender: Male : 1940 Patient Status: Inpatient Patient Location: [address] [place] [address] Study Date: 06/09/2018 01:32 PM Procedure: A two-dimensional transthoracic echocardiogram with color flow and Doppler was performed. The study was technically difficult with many images being suboptimal in quality. Reason For Study: heart failure History: CHF. Ordering Physician: MARY MESSER Performed By: Jb Jain Interpretation Summary The study was technically difficult with many images being suboptimal in quality. The left ventricle is moderately dilated. There is normal left ventricular wall thickness. LV EF is 30% Left ventricular systolic function is severely reduced. LV diastolic function not assessed. There is severe global hypokinesis of the left ventricle. There is no thrombus. The right ventricle is mild to moderately dilated. The right atrium is mild to moderately dilated. The left atrium is moderately dilated. There is mild to moderate mitral annular calcification. There is no evidence of mitral valve prolapse. There is no vegetation seen on the mitral valve. There is no mitral valve stenosis. There is a moderate amount of mitral regurgitation There is a peak gradient of of 46 mm of Hg , and mean gradient of 28 mm of mm of Hg. In view of severe LV dysfunction , this may be severe or even critical .Note this is with the patient on 5 Mcg/kg/min of dopamie. There is a trace to mild amount of aortic regurgitation There is no tricuspid stenosis. There is a moderate amount of tricuspid regurgitation There is servere pulmonary hypertension by echo RVSP is atleast 67 mm of Hg , with RA mean of at least 20 . There is no pulmonic valvular stenosis. There is a mild amount of pulmonic regurgitation There is no pericardial effusion. There is moderate to large left pleural effusion. MMode/2D Measurements & Calculations RVDd: 4.7 cm LVIDd: 6.3 cm FS: 19.7 % Ao root diam: 3.1 cm IVSd: 0.96 cm LVIDs: 5.1 cm EDV(Teich): 200.9 ml Ao root area: 7.8 cm2 LVPWd: 0.99 cm ESV(Teich): 121.3 ml EF(Teich): 39.6 % LA dimension: 4.8 cm LVOT diam: 2.3 cm LVOT area: 4.3 cm2 Doppler Measurements & Calculations MV E max nemesio: MV P1/2t max nemesio: Ao V2 max: AI max nemesio: 100.8 cm/sec 96.0 cm/sec 290.0 cm/sec 318.2 cm/sec MV A max nemesio: MV P1/2t: 49.8 msec Ao max PG: AI max P.8 cm/sec 34.4 mmHg 40.5 mmHg MV E/A: 1.8 MVA(P1/2t): 4.4 cm2 Ao V2 mean: AI dec slope: MV dec slope: 249.3 cm/sec 564.4 cm/sec2 Ao mean P.4 cm/sec2 MV dec time: 28.3 mmHg AI P1/2t: 0.19 sec Ao V2 VTI: 54.4 cm 386.1 msec JOSH(I,D): 1.1 cm2 JOSH(V,D): 1.2 cm2 LV V1 max PG: MR max nemesio: SV(LVOT): 61.1 ml PA V2 max: 2.6 mmHg 438.4 cm/sec 112.8 cm/sec LV V1 mean PG: MR max P.9 mmHg PA max P.2 mmHg 1.3 mmHg LV V1 max: 79.3 cm/sec LV V1 mean: 55.5 cm/sec LV V1 VTI: 14.3 cm PI end-d nmeesio: TR max nemesio: AV P1/2t-pr_phl: MV P1/2t-pr_phl: 132.1 cm/sec 259.3 cm/sec 386.1 msec 54.7 msec TR max P.9 mmHg Left Ventricle The left ventricle is moderately dilated. There is normal left ventricular wall thickness. LV EF is 30%. Left ventricular systolic function is severely reduced. LV diastolic function not assessed. There is severe global hypokinesis of the left ventricle. There is no thrombus. Right Ventricle The right ventricle is mild to moderately dilated. The right ventricle is not well visualized secondary to technical limitations. Atria The right atrium is mild to moderately dilated. The left atrium is moderately dilated. Mitral Valve There is mild to moderate mitral annular calcification. There is no evidence of mitral valve prolapse. There is no vegetation seen on the mitral valve. There is no mitral valve stenosis. There is a moderate amount of mitral regurgitation. Aortic Valve There is no aortic valvular vegetation. There is a peak gradient of of 46 mm of Hg , and mean gradient of 28 mm of mm of Hg. In view of severe LV dysfunction , this may be severe or even critical .Note this is with the patient on 5 Mcg/kg/min of dopamie. There is a trace to mild amount of aortic regurgitation. Tricuspid Valve There is no tricuspid stenosis. There is a moderate amount of tricuspid regurgitation. There is servere pulmonary hypertension by echo. RVSP is atleast 67 mm of Hg , with RA mean of at least 20 . Pulmonic Valve There is no pulmonic valvular stenosis. There is a mild amount of pulmonic regurgitation. Great Vessels The aortic root is not well visualized but is probably normal size. The inferior vena cava appeared dilated and did not change with respiration (RAP > 20 mmHg). Effusions There is no pericardial effusion. There is moderate to large left pleural effusion. : MARY MESSER > Lamar Castro
[2018-06-11] MEDS: DOPAMINE HCL/DEXTROSE 5%-WATER 800 MG/250 ML RTUINJ IV PRN (02:51)
[2018-06-11] MEDS: LEVOTHYROXINE SODIUM 0.1 MG TABLET PO SCH (05:39)
[2018-06-11 06:33] LABS: INTERNATIONAL RATION (INR) 1.29; PROTHROMBIN TIME 16.7 SEC (11.4-15.4)
--- NOTE | 2018-06-11 08:25 | PDOC PROGRESS REPORT ---
Subjective Progress Note for:: 06/11/18 Subjective:: The patient appears to be slightly better. Again long discussion with the family about weaning and stopping the dopamine and if stable within 24 hours will start thinking about comfort measures at the [facility]. Unfortunately he does not have enough help at home to being able to go home. Reason For Visit: HEART FAILURE Physical Exam Vital Signs: Temp Pulse Resp BP Pulse Ox 97.8 F 95 12 81/54 L 95 06/11/18 07:35 06/11/18 07:35 06/11/18 07:35 06/11/18 07:35 06/11/18 07:35 Intake & Output 06/10/18 06/11/18 06/12/18 06:59 06:59 06:59 Intake Total 550 957 Output Total 2778 7495 Balance -2225 -1218 Weight 89.3 kg 90.2 kg General appearance: PRESENT: mild distress Head exam: PRESENT: atraumatic Eye exam: PRESENT: conjunctiva pink Neck exam: PRESENT: carotid bruit, JVD Respiratory exam: PRESENT: crackles Cardiovascular exam: PRESENT: irregular rhythm, +S1, +S2 GI/Abdominal exam: PRESENT: normal bowel sounds, soft Extremities exam: PRESENT: pedal edema, tenderness Musculoskeletal exam: PRESENT: tenderness Neurological exam: PRESENT: alert, awake Results Laboratory Results: 06/10/18 07:05 06/10/18 07:05 06/04/18 06/04/18 06/04/18 02:35 02:35 02:35 Creatine Kinase 89 CK-MB (CK-2) 1.88 Troponin I 0.030 NT-Pro-B Natriuret Pep [id number] H 06/04/18 06/04/18 06/04/18 08:29 08:29 14:40 Creatine Kinase 82 86 CK-MB (CK-2) 1.75 Troponin I 0.029 NT-Pro-B Natriuret Pep 06/04/18 06/04/18 06/04/18 14:40 22:52 22:52 Creatine Kinase 76 CK-MB (CK-2) 1.54 1.33 Troponin I 0.024 0.027 NT-Pro-B Natriuret Pep 06/07/18 04:02 Creatine Kinase CK-MB (CK-2) Troponin I NT-Pro-B Natriuret Pep [id number] H Impressions: Chest X-Ray 06/07/18 06:00 IMPRESSION: Stable small bilateral pleural effusions, left greater than right, and bibasilar opacification, likely atelectasis. Assessment & Plan - Diagnosis (1) Cardiomyopathy Is this a current diagnosis for this admission?: Yes Plan: Will wean off the dopamine (2) Acute on chronic systolic CHF (congestive heart failure) Is this a current diagnosis for this admission?: Yes Plan: Stable continue current treatment (3) CAD (coronary artery disease) Qualifiers: Coronary Disease-Associated Artery/Lesion type: bypass graft [place] vs. transplanted heart: [place] heart Associated angina: without angina Qualified Code(s): I25.810 - Atherosclerosis of coronary artery bypass graft(s) without angina pectoris Is this a current diagnosis for this admission?: Yes Plan: Continue current medications (4) Chronic atrial fibrillation Is this a current diagnosis for this admission?: Yes Plan: Continue current treatment (5) Chronic respiratory failure with hypoxia, on home O2 therapy Is this a current diagnosis for this admission?: Yes (6) Prostate cancer metastatic to bone Is this a current diagnosis for this admission?: Yes Plan: Stop the chemotherapy or any treatment for prostate cancer (7) Do not resuscitate status Is this a current diagnosis for this admission?: Yes Plan: We will consult with hospice and home health. Will consider comfort measures tomorrow (8) Need for comfort care Is this a current diagnosis for this admission?: Yes Plan: Discussed with the patient the family and the oncologist. Will all in agreement about comfort care
--- NOTE | 2018-06-11 08:28 | PDOC PROGRESS REPORT ---
Subjective Progress Note for:: 06/11/18 Subjective:: Patient without complaints today. Family is at bedside. They stated that he ate very well yesterday and was comfortable all night. They are all in agreement to stop the dopamine drip and move toward comfort measures. Reason For Visit: HEART FAILURE Physical Exam Vital Signs: Temp Pulse Resp BP Pulse Ox 97.8 F 95 12 81/54 L 95 06/11/18 07:35 06/11/18 07:35 06/11/18 07:35 06/11/18 07:35 06/11/18 07:35 Intake & Output 06/10/18 06/11/18 06/12/18 06:59 06:59 06:59 Intake Total 550 957 Output Total 2775 2175 Balance -2225 -1218 Weight 89.3 kg 90.2 kg General appearance: PRESENT: no acute distress Head exam: PRESENT: normocephalic Respiratory exam: PRESENT: unlabored, wheezes Cardiovascular exam: PRESENT: RRR GI/Abdominal exam: PRESENT: hyperactive bowel sounds, soft Neurological exam: PRESENT: alert, awake Psychiatric exam: PRESENT: appropriate affect Skin exam: PRESENT: normal color Results Laboratory Results: 06/10/18 07:05 06/10/18 07:05 06/04/18 06/04/18 06/04/18 02:35 02:35 02:35 Creatine Kinase 89 CK-MB (CK-2) 1.88 Troponin I 0.030 NT-Pro-B Natriuret Pep [id number] H 06/04/18 06/04/18 06/04/18 08:29 08:29 14:40 Creatine Kinase 82 86 CK-MB (CK-2) 1.75 Troponin I 0.029 NT-Pro-B Natriuret Pep 06/04/18 06/04/18 06/04/18 14:40 22:52 22:52 Creatine Kinase 76 CK-MB (CK-2) 1.54 1.33 Troponin I 0.024 0.027 NT-Pro-B Natriuret Pep 06/07/18 04:02 Creatine Kinase CK-MB (CK-2) Troponin I NT-Pro-B Natriuret Pep [id number] H Impressions: Chest X-Ray 06/07/18 06:00 IMPRESSION: Stable small bilateral pleural effusions, left greater than right, and bibasilar opacification, likely atelectasis. Assessment & Plan - Diagnosis (1) Prostate cancer metastatic to bone Is this a current diagnosis for this admission?: Yes Plan: All treatment on hold. Patient hagan not wish any further aggressive measures. (2) Acute on chronic systolic CHF (congestive heart failure) Is this a current diagnosis for this admission?: Yes Plan: I spoke with Dr. Hurst today. All are in agreement for comfort measures only. Family would like to give patient 24-48 hours in the hospital off of all aggressive treatment to see how he does, and if stable, then transfer to [facility] for comfort measures only. I have given orders to change to palliative care and comfort measures only. Dopamine drip will be weaned. I will continue to follow.
[2018-06-11] MEDS: DRONABINOL 2.5 MG CAPSULE PO SCH (09:19)
[2018-06-11] MEDS: ACETAMINOPHEN 325 MG TABLET PO PRN (17:45)
--- NOTE | 2018-06-11 22:38 | Progress Note ---
Provider Note Provider Note: CARDIOLOGY Note by Dr. Lamar Castro on 06/11/2018. Discussed with Kevin Hurst MD. The the patient, and his family, and Kevin Hurst MD and other caregiving providers in this case I agree with the patient going to comfort measures. Hence will not render a formal cardiac cardiology consult. Thanking you.
--- NOTE | 2018-06-12 08:33 | PDOC PROGRESS REPORT ---
Subjective Progress Note for:: 06/12/18 Subjective:: The patient states to feel the same. He denies any shortness of breath or chest pain. He denies any cough. Daughter is at the bedside. Discussed the comfort care at the [facility]. They apparently supposed to go and evaluate his room prior to his discharge. We do not know if we have a room available. Again discussed the comfort care at the [facility] with hospice which will be arranged by Dr. Canales Reason For Visit: HEART FAILURE Physical Exam Vital Signs: Temp Pulse Resp BP Pulse Ox 97.8 F 95 12 81/54 L 95 06/11/18 07:35 06/11/18 08:00 06/11/18 07:35 06/11/18 08:00 06/11/18 07:35 Intake & Output 06/11/18 06/12/18 06/13/18 06:59 06:59 06:59 Intake Total 957 54 Output Total 2175 Balance -1218 54 Weight 90.2 kg General appearance: PRESENT: mild distress Head exam: PRESENT: atraumatic Eye exam: PRESENT: conjunctiva pink Mouth exam: PRESENT: dry mucosa Neck exam: PRESENT: carotid bruit. ABSENT: JVD Respiratory exam: PRESENT: crackles Cardiovascular exam: PRESENT: irregular rhythm, +S1, +S2 GI/Abdominal exam: PRESENT: normal bowel sounds, soft Extremities exam: PRESENT: pedal edema, tenderness Musculoskeletal exam: PRESENT: tenderness Results Laboratory Results: 06/10/18 07:05 06/10/18 07:05 06/09/18 00:04 Sputum Gram Stain - Final 06/09/18 00:04 Sputum Sputum Culture - Final Pseudomonas Aeruginosa Normal [place] 06/04/18 06/04/18 06/04/18 02:35 02:35 02:35 Creatine Kinase 89 CK-MB (CK-2) 1.88 Troponin I 0.030 NT-Pro-B Natriuret Pep [id number] H 06/04/18 06/04/18 06/04/18 08:29 08:29 14:40 Creatine Kinase 82 86 CK-MB (CK-2) 1.75 Troponin I 0.029 NT-Pro-B Natriuret Pep 06/04/18 06/04/18 06/04/18 14:40 22:52 22:52 Creatine Kinase 76 CK-MB (CK-2) 1.54 1.33 Troponin I 0.024 0.027 NT-Pro-B Natriuret Pep 06/07/18 04:02 Creatine Kinase CK-MB (CK-2) Troponin I NT-Pro-B Natriuret Pep [id number] H Impressions: Chest X-Ray 06/07/18 06:00 IMPRESSION: Stable small bilateral pleural effusions, left greater than right, and bibasilar opacification, likely atelectasis. Assessment & Plan - Diagnosis (1) Cardiomyopathy Is this a current diagnosis for this admission?: Yes Plan: Will wean off the dopamine (2) Acute on chronic systolic CHF (congestive heart failure) Is this a current diagnosis for this admission?: Yes Plan: Improved we will continue with current treatment (3) CAD (coronary artery disease) Qualifiers: Coronary Disease-Associated Artery/Lesion type: bypass graft [place] vs. transplanted heart: [place] heart Associated angina: without angina Qualified Code(s): I25.810 - Atherosclerosis of coronary artery bypass graft(s) without angina pectoris Is this a current diagnosis for this admission?: Yes (4) Chronic atrial fibrillation Is this a current diagnosis for this admission?: Yes Plan: Continue current treatment (5) Chronic respiratory failure with hypoxia, on home O2 therapy Is this a current diagnosis for this admission?: Yes (6) Prostate cancer metastatic to bone Is this a current diagnosis for this admission?: Yes Plan: Stop the chemotherapy or any treatment for prostate cancer (7) Do not resuscitate status Is this a current diagnosis for this admission?: Yes Plan: We will consult with hospice and home health. Will consider comfort measures tomorrow (8) Need for comfort care Is this a current diagnosis for this admission?: Yes Plan: Discussed with the patient the family and the oncologist. Will all in agreement about comfort care (9) Aortic stenosis Qualifiers: Cardiac valve disease etiology: nonrheumatic Qualified Code(s): I35.0 - Nonrheumatic aortic (valve) stenosis Is this a current diagnosis for this admission?: Yes Plan: Might be part of the heart failure with cardiomyopathy
[2018-06-12] MEDS: ACETAMINOPHEN 325 MG TABLET PO PRN (13:03)
--- NOTE | 2018-06-13 07:54 | PDOC PROGRESS REPORT ---
Subjective Progress Note for:: 06/13/18 Subjective:: Patient sleeping peacefully. Family reports that he has been eating well and without pain. Reason For Visit: HEART FAILURE Physical Exam Vital Signs: Temp Pulse Resp BP Pulse Ox 98.4 F 120 H 16 67/39 L 100 06/13/18 05:07 06/13/18 05:07 06/13/18 05:07 06/13/18 05:07 06/13/18 05:07 Intake & Output 06/12/18 06/13/18 06/14/18 06:59 06:59 06:59 Intake Total 54 Balance 54 General appearance: PRESENT: well-developed, well-nourished Head exam: PRESENT: normocephalic Neurological exam: PRESENT: other - Sleeping peacefully. Skin exam: PRESENT: normal color Results Laboratory Results: 06/10/18 07:05 06/10/18 07:05 06/04/18 06/04/18 06/04/18 02:35 02:35 02:35 Creatine Kinase 89 CK-MB (CK-2) 1.88 Troponin I 0.030 NT-Pro-B Natriuret Pep [id number] H 06/04/18 06/04/18 06/04/18 08:29 08:29 14:40 Creatine Kinase 82 86 CK-MB (CK-2) 1.75 Troponin I 0.029 NT-Pro-B Natriuret Pep 06/04/18 06/04/18 06/04/18 14:40 22:52 22:52 Creatine Kinase 76 CK-MB (CK-2) 1.54 1.33 Troponin I 0.024 0.027 NT-Pro-B Natriuret Pep 06/07/18 04:02 Creatine Kinase CK-MB (CK-2) Troponin I NT-Pro-B Natriuret Pep [id number] H Impressions: Chest X-Ray 06/07/18 06:00 IMPRESSION: Stable small bilateral pleural effusions, left greater than right, and bibasilar opacification, likely atelectasis. Assessment & Plan - Diagnosis (1) Prostate cancer metastatic to bone Is this a current diagnosis for this admission?: Yes (2) Acute on chronic systolic CHF (congestive heart failure) Is this a current diagnosis for this admission?: Yes - Plan Summary Plan Summary: Continue Comfort measures only. Plan is to transfer him to [facility] for shelter palliative care. I am available if needed.
[2018-06-13 08:35] VITALS: BP 84/54
--- NOTE | 2018-06-13 08:35 | PDOC TRANSFER SUMMARY ---
General - Admit/Disc Date/PCP Admission Date/Primary Care Provider: 06/04/18 06:06 CARLEY JOHNSON MD Discharge Date: 06/13/18 - Discharge Diagnosis (1) Cardiomyopathy Is this a current diagnosis for this admission?: Yes Summary: Continue current medications (2) Acute on chronic systolic CHF (congestive heart failure) Is this a current diagnosis for this admission?: Yes Summary: Continue current medications (3) CAD (coronary artery disease) Is this a current diagnosis for this admission?: Yes (4) Chronic atrial fibrillation Is this a current diagnosis for this admission?: Yes Summary: Continue current treatment (5) Chronic respiratory failure with hypoxia, on home O2 therapy Is this a current diagnosis for this admission?: Yes (6) Prostate cancer metastatic to bone Is this a current diagnosis for this admission?: Yes Summary: Continue comfort care (7) Do not resuscitate status Is this a current diagnosis for this admission?: Yes Summary: Continue DNR. (8) Need for comfort care Is this a current diagnosis for this admission?: Yes Summary: Comfort care, hospice. Contact Dr. Canales for any further orders (9) Aortic stenosis Is this a current diagnosis for this admission?: Yes - Additional Information Resuscitation Status: Do Not Resuscitate Discharge Diet: Cardiac, Diabetic Discharge Activity: Activity As Tolerated, Balance Activity w/Rest, Weigh Daily Home Medications: Acetaminophen [Tylenol 325 mg Tablet] 975 mg PO Q4HP PRN 06/04/18 Albuterol Sulfate [Proair HFA Inhalation Aerosol 8.5 gm MDI] 2 puff IH Q4HP PRN 06/04/18 Aspirin [Adult Low Dose Aspirin EC] 81 mg PO DAILY 06/04/18 Atorvastatin Calcium [Lipitor 20 mg Tablet] 20 mg PO DAILY 06/04/18 Bumetanide [Bumex 1 mg Tablet] 1 mg PO DAILY 06/04/18 Chlorhexidine Gluconate [Peridex] 5 ml PO TID 06/04/18 Cholecalciferol (Vitamin D3) [Vitamin D3 1000 Unit Tablet] 2,000 unit PO DAILY 06/04/18 Docusate Sodium [Colace 100 mg Capsule] 100 mg PO DAILYP PRN 06/04/18 Dronabinol [Marinol] 5 mg PO BID 06/04/18 Fluticasone/Salmeterol [Advair 250-50 Diskus 14 Dose/Diskus] 1 puff IH BID 06/04/18 Furosemide [Lasix 40 mg Tablet] 40 mg PO BID 06/04/18 Ibuprofen [Motrin 800 mg Tablet] 800 mg PO QIDP PRN 06/04/18 Insulin Glargine,Hum.rec.anlog [Lantus Insulin 100 Unit/mL] 10 units SQ QHS 06/04/18 Insulin Lispro [Humalog Insulin (Lispro) 100 unit/mL] 0 units SQ .PERSLIDINGSCALE 06/04/18 Levothyroxine Sodium 200 mcg PO Q6AM 06/04/18 Melatonin/Pyridoxine HCl (B6) [Melatonin 3 mg Tablet] 1 tab PO QPM 06/04/18 Metoprolol Succinate [Toprol Xl 25 mg Tab.sr] 12.5 mg PO DAILY 06/04/18 Nitroglycerin [Nitromist] 1 spray SL Q5MP PRN 06/04/18 Omeprazole 20 mg PO QPM 06/04/18 Potassium Chloride 20 meq PO DAILY 06/04/18 Tolterodine Tartrate [Detrol LA] 4 mg PO DAILY 06/04/18 Warfarin Sodium [Coumadin 5 mg Tablet] 10 mg PO MOWEFR 06/04/18 Warfarin Sodium [Coumadin 7.5 mg Tablet] 7.5 mg PO SUTUTHSA 06/04/18 Acetaminophen [Tylenol 325 mg Tablet] 650 mg PO Q4HP PRN tablet 06/13/18 Albuterol Sulfate [Proair HFA Inhalation Aerosol 8.5 gm MDI] 2 puff IH Q4HP PRN hfa.aer.ad 06/13/18 Mag Hydrox/Al Hydrox/Simeth [Maalox Plus Susp 30 Udcup] 30 ml PO Q4HP PRN udc 06/13/18 Magnesium Hydroxide [Milk of Magnesia 30 ml Udcup] 30 ml PO HSP PRN udc 06/13/18 Ondansetron [Zofran Odt 4 mg Tablet] 4 mg PO Q6HP PRN tab.rapdis 06/13/18 History of Present Illness Admission Date/PCP: 06/04/18 06:06 CARLEY JOHNSON MD History of Present Illness: MAGALIE ABAD is a 77 year old male Hospital Course Hospital Course: The patient was admitted to the hospital. He was found to be hypotensive. He has received some medications and IV fluids. He does have severe cardiomyopathy and aortic stenosis. He has decided for DNR because of stage IV prostate cancer and eventually since things were not improving have decided for just comfort care. Discussed with the oncologist. Arrangements have been made for patient to be transferred to a skilled nursing for comfort care with hospice Physical Exam Vital Signs: Temp Pulse Resp BP Pulse Ox 98.4 F 120 H 16 67/39 L 100 06/13/18 05:07 06/13/18 05:07 06/13/18 05:07 06/13/18 05:07 06/13/18 05:07 Intake & Output 06/12/18 06/13/18 06/14/18 06:59 06:59 06:59 Intake Total 54 Balance 54 General appearance: PRESENT: no acute distress Head exam: PRESENT: atraumatic Neck exam: PRESENT: carotid bruit, JVD Respiratory exam: PRESENT: crackles Cardiovascular exam: PRESENT: irregular rhythm, +S1, +S2 GI/Abdominal exam: PRESENT: normal bowel sounds, soft Extremities exam: PRESENT: tenderness, +1 edema Musculoskeletal exam: PRESENT: tenderness Neurological exam: PRESENT: alert, awake Results Laboratory Results: 06/10/18 07:05 06/10/18 07:05 06/04/18 06/04/18 06/04/18 02:35 02:35 02:35 Creatine Kinase 89 CK-MB (CK-2) 1.88 Troponin I 0.030 NT-Pro-B Natriuret Pep [id number] H 06/04/18 06/04/18 06/04/18 08:29 08:29 14:40 Creatine Kinase 82 86 CK-MB (CK-2) 1.75 Troponin I 0.029 NT-Pro-B Natriuret Pep 06/04/18 06/04/18 06/04/18 14:40 22:52 22:52 Creatine Kinase 76 CK-MB (CK-2) 1.54 1.33 Troponin I 0.024 0.027 NT-Pro-B Natriuret Pep 06/07/18 04:02 Creatine Kinase CK-MB (CK-2) Troponin I NT-Pro-B Natriuret Pep 15185 H Impressions: Chest X-Ray 06/07/18 06:00 IMPRESSION: Stable small bilateral pleural effusions, left greater than right, and bibasilar opacification, likely atelectasis. Qualifiers - * PATIENT BEING DISCHARGED WITH ANY OF THE FOLLOWING DIAGNOSIS: No VTE patient discharged on overlapping Therapy?: No Reason(s) for not prescribing Overlap Therapy:: Hospice Care
== END 2018-06-13 15:51 | DRG 291 ==
LOC: ER 01:51 → EH 06:06 → 3N 07:50
PROVIDERS: ADMIT Internal Medicine; ATTEND Internal Medicine
PROC: 30233K1 Transfusion of Nonautologous Frozen Plasma into Peripheral Vein, Percutaneous Approach (ICD-10-PCS; principal; 2018-06-04)
DX: I11.0 Hypertensive heart disease with heart failure (principal); J96.21 Acute and chronic respiratory failure with hypoxia; C79.51 Secondary malignant neoplasm of bone; R04.2 Hemoptysis; E87.1 Hypo-osmolality and hyponatremia; Z66 Do not resuscitate; I50.23 Acute on chronic systolic (congestive) heart failure; C61 Malignant neoplasm of prostate; I35.0 Nonrheumatic aortic (valve) stenosis; I42.9 Cardiomyopathy, unspecified; I95.9 Hypotension, unspecified; E11.8 Type 2 diabetes mellitus with unspecified complications; I25.10 Atherosclerotic heart disease of native coronary artery without angina pectoris; E03.9 Hypothyroidism, unspecified; I48.2 Chronic atrial fibrillation; Z99.81 Dependence on supplemental oxygen; Z79.01 Long term (current) use of anticoagulants; Z79.4 Long term (current) use of insulin; Z79.51 Long term (current) use of inhaled steroids; Z79.899 Other long term (current) drug therapy
CPT/HCPCS: 36415; 36430; 36591; 51702; 71045; 80048; 80053; 80162; 82550; 82553; 82607; 82728; 82746; 82962; 83540; 83550; 83735; 83880; 84439; 84443; 84481; 84484; 85025; 85027; 85045; 85610; 86850; 86900; 86901; 86920; 87070; 87077; 87186; 87205; 93005; 93010; 93306; 96365; 96375; 99291; A9270-GY; C1758; J0610; J1265; J1940; J3430; J3490; P9017; P9047